=== PATIENT | male | born 1955 | race African-American/Black ===

== ENCOUNTER 2020-09-05 08:19 | Outpatient (REF) | payer MEDICARE, SELFPAY | END 2020-09-05 08:20 | disposition home or self-care (01) | LOC: HO.SH 08:19 | PROVIDERS: Visit Provider Internal Medicine | DX: Z46.1 Encounter for fitting and adjustment of hearing aid (principal); H90.3 Sensorineural hearing loss, bilateral | CPT/HCPCS: 92592 ==

== ENCOUNTER 2020-09-24 09:52 | Outpatient (REF) | payer MEDICARE, MEDICAID, SELFPAY | END 2020-09-24 09:53 | disposition home or self-care (01) | LOC: HO.HAP 09:52 | PROVIDERS: Visit Provider Internal Medicine | DX: Z46.1 Encounter for fitting and adjustment of hearing aid (principal) | CPT/HCPCS: V5014 ==

== ENCOUNTER 2023-03-23 08:12 | Outpatient (AMB) | payer OTHER, SELFPAY ==
--- NOTE | 2023-03-23 08:13 | MHC.OFFVIS ---
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 He has family h/o cerebral aneurysms.His father and his older brother have cerebral aneurysms . His brother had a ruptured aneurysm 10-15 years ago and the patient was also evaluated though he was asymptomatic. He was found to have 2 aneurysms and had 1 clipped.He wants to transfer care from [facility] due to the distance.His last visit was 5 years ago. He denies headaches, memory issues, double vision, dysarthria, dysphagia, weakness or numbness, loss of vision etc. 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 [facility] Medical History Benign neoplasm of neck Cerebral aneurysm CVA (cerebral vascular accident) Diabetes HTN (hypertension) Hyperlipidemia Seasonal allergies Surgical History (Updated 03/23/23 @ 08:32 by Ellen Oates MD) History of carotid endarterectomy History of carpal tunnel release History of surgery for cerebral aneurysm Family History Father Cerebral aneurysm Mother Diabetes Social History (Updated 03/23/23 @ 08:21 by JEANIE Rubin) Alcohol intake: never Patient Tobacco Use Status: Never used Tobacco Review of Systems Const Reports no additional complaints and Reports daytime sleepiness Eyes Reports no additional complaints ENT Reports change in voice Card Reports no additional complaints Resp Reports no additional complaints GI Reports no additional complaints Musc Reports arthralgias Neuro Reports no additional complaints Physical Exam Vital Signs: Last Vital Signs Pulse 86 03/23/23 08:19 BP 138/92 H 03/23/23 08:19 Pulse Ox 98 03/23/23 08:19 Oxygen Delivery Method Room Air 03/23/23 08:19 Const Orientation/consciousness: patient oriented x3 Neuro Other: 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 Due to his surgery in his neck and throat he had mild difficulty protruding his tongue. speech- dyarthria General: patient oriented x3, gait normal, tone normal, moves all extremities and no focal motor deficits Cranial nerves: Yes Facial sensation intact/muscles of mastication intact and Yes Normal facial strength present Cognition (Neuro): normal cognition Gait exam (Neuro): Normal gait present Motor exam (neuro): 5/5 motor strength present throughout and Normal motor muscle tone present throughout Deep tendon reflexes (DTR's): Right triceps reflex intensity grade: 2+, Left triceps reflex intensity grade: 2+, Rt Biceps (C5, C6): 2+, Left biceps reflex intensity grade: 2+, Right brachioradialis reflex intensity grade: 2+, Left brachioradialis reflex intensity grade: 2+, Right patellar reflex intensity grade: 3+ and Left patellar reflex intensity grade: 3+ Coordination: [id number] test normal Assessment & Plan Assessment & Plan (1) Cerebral aneurysm: Code(s): I67.1 - Cerebral aneurysm, nonruptured (2) History of carotid endarterectomy: Code(s): Z98.890 - Other specified postprocedural states Plan I will do a follow up MRI brain and MRA brain and neck to further assess his carotids and the aneurysm Orders: Orders MR angio head wo/w con Today I67.1 - Cerebral aneurysm, nonruptured, Z98.890 - Other specified postprocedural states MR angio neck wo/w con Today I67.1 - Cerebral aneurysm, nonruptured, Z98.890 - Other specified postprocedural states MR head/brain wo con Today I67.1 - Cerebral aneurysm, nonruptured, Z98.890 - Other specified postprocedural states Coding Level of Care Code New Pt Level 4 (23967) Diagnoses Cerebral aneurysm I67.1 History of carotid endarterectomy Z98.890
[2023-03-23 08:19] VITALS: BP 138/92; PULSE 86; O2SAT 98
== END 2023-03-23 08:46 | disposition home or self-care (01) ==
PROVIDERS: PCP Nurse Practitioner Adult Health; Visit Provider Psychiatry & Neurology Neurology
DX: I67.1 Cerebral aneurysm, nonruptured (principal); Z98.890 Other specified postprocedural states
CPT/HCPCS: 99204

== ENCOUNTER → 2023-03-23 08:12 | Outpatient (BNVA) | payer OTHER, SELFPAY | PROVIDERS: PCP Nurse Practitioner Adult Health; Visit Provider Psychiatry & Neurology Neurology | DX: I67.1 Cerebral aneurysm, nonruptured (principal); Z98.890 Other specified postprocedural states | CPT/HCPCS: 99202 ==

== ENCOUNTER 2023-06-07 10:40 | Outpatient (REF) | payer OTHER, SELFPAY ==
--- NOTE | ~2023-06-07 | MR_ITS ---
EXAMINATION: MRI OF THE BRAIN WITHOUT CONTRAST CLINICAL INFORMATION: Follow-up cerebral aneurysm. COMPARISON: Concurrent MRA of the head 06/07/2023. CT scan of the head [facility] 02/04/2013. MRI of the brain [facility] MRI 12/19/2014. TECHNIQUE: MRI of the brain was obtained using routine sequences without intravenous contrast. FINDINGS: No diffusion abnormalities are identified to suggest an acute or subacute infarct. No mass effect or midline shift is seen. The ventricles and sulci are commensurately prominent consistent with diffuse volume loss. There are patchy areas of increased T2 and FLAIR signal in the periventricular subcortical white matter, and in the annelise, most consistent with chronic microvascular ischemic disease. The study redemonstrates heterogenous signal from the clivus. There is irregular soft tissue fullness in the nasopharynx bilaterally, demonstrated on prior imaging, with erosive changes of the clivus which are better demonstrated on the prior CT scan. No extra-axial fluid collections are seen. The cerebellum appears normal. No pathologic magnetic susceptibility artifact is identified on the gradient refocused acquisition. The craniovertebral junction and midline structures are normal. The major intracranial flow-voids at the level of the [place] are preserved. There has been a left lens extraction. The dural venous sinus flow-voids are maintained; there is some susceptibility artifact from the coiling material in the left internal carotid artery. There is extensive fluid in the mastoid air cells bilaterally. There is mild mucoperiosteal thickening in the ethmoid sinuses. MR/MR head/brain wo con IMPRESSION: 1. There are no acute bleeds or territorial infarcts. No masses are demonstrated. 2. There are chronic microvascular ischemic changes and there is diffuse volume loss. 3. The study redemonstrates heterogenous signal from the clivus with erosive changes. There is soft tissue fullness in the nasopharynx bilaterally, demonstrated on prior imaging. This could be further evaluated with CT scan of the neck without and with contrast, and with ENT consultation. 4. There is extensive fluid in the mastoid air cells bilaterally.
--- NOTE | ~2023-06-07 | MR_ITS ---
EXAMINATION: MR ANGIOGRAPHY BRAIN WITHOUT AND WITH CONTRAST CLINICAL INFORMATION: Follow up for prior coiled cerebral aneurysm. No reported symptoms. COMPARISON: MRA dated 01/10/2015. Outside CT from 02/04/2023. Prior brain MRI from 12/19/2014. TECHNIQUE: Postcontrast and 3-D [id number] MR angiography of the [place] acquired. The patient received 7 mL of Gadavist intravenously for the study. Evaluation is limited due to the motion artifacts. FINDINGS: Distal to the left ophthalmic artery origin and proximal to the coiled dorsal wall aneurysm along the supraclinoid left internal carotid artery, there is what appears to represent a 3.5 mm aneurysm projecting superiorly off the dorsal wall as well, increased in size compared to prior imaging, having previously measured approximately 2 mm in size. The remainder of the left internal carotid artery appears normal. The right internal carotid artery is of normal caliber. The DANILO vasculature is normal. The MCA vascular complexes are normal in appearance bilaterally. The vertebrobasilar vasculature appears normal. The posterior cerebral arteries are normal in caliber. The venous sinuses opacify normally on post contrast imaging. There are significant bilateral mastoid and middle ear effusions. There is abnormal thickening of the nasopharyngeal soft tissues, better seen on a prior brain MRI study from 06/07/2023. On a CT study from 02/04/2023, there are permeative sclerotic changes in the clivus with small areas of bony erosion as well. There is loss of the normal fat planes between the nasopharyngeal soft tissue thickening and the prevertebral soft tissues posteriorly. Morphology of the torus tubarius on the left side is irregular. Similar findings were visible on a prior CT study from 12/2014 as well. MR/MR angio head wo/w con IMPRESSION: 1. Perceived 3.5 mm aneurysm arising from the dorsal wall of the supraclinoid left internal carotid artery between the origin of the ophthalmic artery and a previously coiled dorsal wall aneurysm. This aneurysm has increased in size when compared to an MRA from 01/10/2015. A dedicated conventional angiogram is recommended for better assessment, given motion artifacts. 2. Significant irregular soft tissue thickening in the nasopharynx with a sclerotic and permeative appearance of the clivus. Severe suspected chronic postobstructive bilateral middle ear and mastoid effusions as well. 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 The possibility of disease recurrence at this site cannot be discerned on the basis of this study. Recommend follow-up ENT consultation and evaluation to guide further management. Imaging findings reported to Dr. Oates at 8:40 AM on 06/09/2023.
[2023-06-07] MEDS: gadobutroL 7.5 ML VIAL IVPUSH (11:55)
== END 2023-06-07 10:41 | disposition home or self-care (01) ==
LOC: HO.MRI 10:40
PROVIDERS: Visit Provider Psychiatry & Neurology Neurology
DX: I67.1 Cerebral aneurysm, nonruptured (principal); Z98.890 Other specified postprocedural states
CPT/HCPCS: 70546; 70551; A9585

== ENCOUNTER 2023-06-29 10:47 | Outpatient (AMB) | payer OTHER, SELFPAY ==
--- NOTE | 2023-06-29 10:48 | MHC.OFFVIS ---
Intake Vital Signs 06/29/23 10:49 Height 5 ft 9 in Weight 139 lb 8 oz BMI 20.6 BP 112/70 Blood Pressure Location Rt brachial Position Sitting Respiration 17 Pulse 96 Pulse Source Pulse Oximeter Pulse Oximetry (%) 98 Oxygen Delivery Method Room Air Intake Visit Reasons: 3m f/up Cerebral Aneurysm - Confirmed Intake Note: Pt presents tot he office for a 3 month follow up for cerebral aneurysm. He reports he feels the same since his last visit. Audio Specialist Required: No Allergies No Known Allergies Allergy (Verified 06/29/23 10:48) HPI HPI Comments History of Present Illness Details 68y/o male comes for f/u .MRA showed a 3.5 mm aneurysm in dorsal supraclinoid left ICA mildly enlarged since his imaging in 2014 . Previous history-He has family h/o cerebral aneurysms.His father and his older brother have cerebral aneurysms . His brother had a ruptured aneurysm 10-15 years ago and the patient was also evaluated though he was asymptomatic. He was found to have 2 aneurysms and had 1 clipped.He wants to transfer care from [facility] due to the distance.His last visit was 5 years ago. He denies headaches, memory issues, double vision, dysarthria, dysphagia, weakness or numbness, loss of vision etc. 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 [facility] Medical History Nasopharyngeal mass CVA (cerebral vascular accident) Benign neoplasm of neck Cerebral aneurysm HTN (hypertension) Seasonal allergies Hyperlipidemia Diabetes Surgical History History of carotid endarterectomy History of surgery for cerebral aneurysm History of carpal tunnel release Family History Father Cerebral aneurysm Mother Diabetes Social History Alcohol intake: never Patient Tobacco Use Status: Never used Tobacco Physical Exam Vital Signs: Last Vital Signs Pulse 96 06/29/23 10:49 Resp 17 06/29/23 10:49 BP 112/70 06/29/23 10:49 Pulse Ox 98 06/29/23 10:49 Oxygen Delivery Method Room Air 06/29/23 10:49 BMI result Body Mass Index 20.6 Const Orientation/consciousness: patient oriented x3 Neuro Other: 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 Due to his surgery in his neck and throat he had mild difficulty protruding his tongue. speech- dyarthria General: patient oriented x3, gait normal, tone normal, moves all extremities and no focal motor deficits Cranial nerves: Yes Facial sensation intact/muscles of mastication intact and Yes Normal facial strength present Cognition (Neuro): normal cognition Gait exam (Neuro): Normal gait present Motor exam (neuro): 5/5 motor strength present throughout and Normal motor muscle tone present throughout Coordination: [id number] test normal Results Reviewed Results Reviewed: .MRA head- Perceived 3.5 mm aneurysm arising from the dorsal wall of the supraclinoid left internal carotid artery between the origin of the ophthalmic artery and a previously coiled dorsal wall aneurysm. This aneurysm has increased in size when compared to an MRA from 01/10/2015. A dedicated conventional angiogram is recommended for better assessment, given motion artifacts. 2. Significant irregular soft tissue thickening in the nasopharynx with a sclerotic and permeative appearance of the clivus. Severe suspected chronic postobstructive bilateral middle ear and mastoid effusions as well. 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 The possibility of disease recurrence at this site cannot be discerned on the basis of this study. Recommend follow-up ENT consultation and evaluation to guide further management. Assessment & Plan Assessment & Plan (1) Cerebral aneurysm: Code(s): I67.1 - Cerebral aneurysm, nonruptured (2) History of carotid endarterectomy: Code(s): Z98.890 - Other specified postprocedural states Plan MRA head showed a mild increase in aneurysm . he was referred to neurosurgery and i discussed the results He did not have MRA neck done yet Suggested to call [facility] ENT for findings in the MRI - to evaluate, but no change since 2014 Coding Level of Care Code Est Pt Level 4 (52001) Diagnoses Cerebral aneurysm I67.1 History of carotid endarterectomy Z98.890
[2023-06-29 10:49] VITALS: BP 112/70; PULSE 96; RESP 17; O2SAT 98; BMI 20.6
== END 2023-06-29 11:19 | disposition home or self-care (01) ==
PROVIDERS: PCP Nurse Practitioner Adult Health; Visit Provider Psychiatry & Neurology Neurology
DX: I67.1 Cerebral aneurysm, nonruptured (principal); Z98.890 Other specified postprocedural states
CPT/HCPCS: 99214

== ENCOUNTER → 2023-06-29 10:47 | Outpatient (BNVA) | payer OTHER, SELFPAY | PROVIDERS: PCP Nurse Practitioner Adult Health; Visit Provider Psychiatry & Neurology Neurology | DX: I67.1 Cerebral aneurysm, nonruptured (principal); Z98.890 Other specified postprocedural states | CPT/HCPCS: 99212 ==

== ENCOUNTER 2023-11-17 09:27 | Outpatient (AMB) | payer OTHER, SELFPAY ==
--- NOTE | 2023-11-17 09:33 | MHC.OFFVIS ---
Intake Vital Signs 11/17/23 09:38 Height 5 ft 9 in Weight 143 lb 2 oz BMI 21.1 BP 124/72 Blood Pressure Location Lt brachial Position Sitting Pulse 85 Pulse Source Pulse Oximeter Pulse Oximetry (%) 99 Oxygen Delivery Method Room Air Intake Visit Reasons: 3 mnts f/u for Cerebral Aneurysm per MD Intake Note: Patient presents for 3 months F/U. Allergies No Known Allergies Allergy (Verified 11/17/23 09:38) HPI HPI Comments History of Present Illness Details 68 y/o male comes for f/u of cerebral aneurysm. Previous history-He has family h/o cerebral aneurysms. His father and his older brother have cerebral aneurysms. His brother had a ruptured aneurysm 10-15 years ago and the patient was also evaluated though he was asymptomatic. He was found to have 2 aneurysms and had 1 clipped. MRA showed a 3.5 mm aneurysm in dorsal supraclinoid left ICA mildly enlarged since his imaging in 2014 . Pt had a MRA of neck done. The MRA of neck result was Left ICA stenosis 40% and there is severe stenosis of distal right common carotid artery. Stenosis of the proximal right ICA is estimated at 60%. There is a dominant thyroid nodule measuring 23 mm involving the the left lobe and isthmus of the thyroid gland. He denies headaches, memory issues, double vision, dysarthria, dysphagia, weakness or numbness, loss of vision etc. 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 He also reports a mini stroke during left carotid endarterectomy . [facility] Medical History Nasopharyngeal mass CVA (cerebral vascular accident) Benign neoplasm of neck Cerebral aneurysm HTN (hypertension) Seasonal allergies Hyperlipidemia Diabetes Surgical History History of carotid endarterectomy History of surgery for cerebral aneurysm History of carpal tunnel release Family History Father Cerebral aneurysm Mother Diabetes Social History Alcohol intake: never Patient Tobacco Use Status: Never used Tobacco Review of Systems Const All systems reviewed & are unremarkable except as noted in HPI and below Physical Exam Vital Signs: Last Vital Signs Pulse 85 11/17/23 09:38 BP 124/72 11/17/23 09:38 Pulse Ox 99 11/17/23 09:38 Oxygen Delivery Method Room Air 11/17/23 09:38 BMI result Body Mass Index 21.1 Const Orientation/consciousness: patient oriented x3 Neuro Other: 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 Due to his surgery in his neck and throat he had mild difficulty protruding his tongue. speech- dyarthria General: patient oriented x3, gait normal, tone normal, moves all extremities and no focal motor deficits Cranial nerves: Yes Facial sensation intact/muscles of mastication intact and Yes Normal facial strength present Cognition (Neuro): normal cognition Gait exam (Neuro): Normal gait present Motor exam (neuro): 5/5 motor strength present throughout and Normal motor muscle tone present throughout Coordination: [id number] test normal Assessment & Plan Assessment & Plan (1) Cerebral aneurysm: Code(s): I67.1 - Cerebral aneurysm, nonruptured (2) History of carotid endarterectomy: Code(s): Z98.890 - Other specified postprocedural states (3) Thyroid nodule: Code(s): E04.1 - Nontoxic single thyroid nodule Plan Refer patient to vascular for evaluation of right ICA 60%. Will check labs, lipid panel, ESR and CRP. Will send the MRA result to his PCP for thyroid nodule evaluation. Orders: Orders Lipid Panel Today E78.5 - Hyperlipidemia, unspecified, I65.29 - Occlusion and stenosis of unspecified carotid artery, I67.1 - Cerebral aneurysm, nonruptured Erythrocyte Sedimentation Rate Today E78.5 - Hyperlipidemia, unspecified, I65.29 - Occlusion and stenosis of unspecified carotid artery, I67.1 - Cerebral aneurysm, nonruptured C Reactive Protein Today E78.5 - Hyperlipidemia, unspecified, I65.29 - Occlusion and stenosis of unspecified carotid artery, I67.1 - Cerebral aneurysm, nonruptured Referrals Vascular Surgery Referral I65.29 - Occlusion and stenosis of unspecified carotid artery Coding Level of Care Code Est Pt Level 4 (09102) Diagnoses Cerebral aneurysm I67.1 History of carotid endarterectomy Z98.890 Thyroid nodule E04.1
[2023-11-17 09:38] VITALS: BP 124/72; PULSE 85; O2SAT 99; BMI 21.1
== END 2023-11-17 10:17 | disposition home or self-care (01) ==
LOC: HO.HSMS 09:27
PROVIDERS: PCP Nurse Practitioner Adult Health; Visit Provider Nurse Practitioner Family
DX: I67.1 Cerebral aneurysm, nonruptured (principal); Z98.890 Other specified postprocedural states; E04.1 Nontoxic single thyroid nodule
CPT/HCPCS: 99214

== ENCOUNTER 2023-11-17 10:30 | Outpatient (REF) | payer OTHER, SELFPAY ==
[2023-11-17 17:09] LABS: C Reactive Protein 1.28 mg/dL (< or = 0.50); Cholesterol 159 mg/dL (<200); HDL Cholesterol 39 mg/dL (>40); LDL Cholesterol Calculated 109 mg/dL (<100); Triglycerides 59 mg/dL (<150)
[2023-11-17 17:39] LABS: Erythrocyte Sedimentation Rate 67 MM/HR (0-15)
== END 2023-11-17 10:31 | disposition home or self-care (01) ==
LOC: HO.HKASLDS 10:30
PROVIDERS: Visit Provider Nurse Practitioner Family
DX: I67.1 Cerebral aneurysm, nonruptured (principal); I65.29 Occlusion and stenosis of unspecified carotid artery; E78.5 Hyperlipidemia, unspecified; E04.1 Nontoxic single thyroid nodule; Z98.890 Other specified postprocedural states
CPT/HCPCS: 36415; 80061; 85652; 86140; 99212

== ENCOUNTER 2023-12-26 09:43 | Outpatient (REF) | payer OTHER, SELFPAY ==
[2023-12-27 17:19] LABS: CRP High Sensitivity 8.4 mg/L
== END 2023-12-26 09:44 | disposition home or self-care (01) ==
LOC: HO.LAB 09:43
PROVIDERS: Visit Provider Nurse Practitioner Family
DX: E11.9 Type 2 diabetes mellitus without complications (principal); E78.5 Hyperlipidemia, unspecified; I10 Essential (primary) hypertension
CPT/HCPCS: 36415; 86141

== ENCOUNTER 2024-02-07 10:25 | Outpatient (AMB) | payer OTHER, SELFPAY ==
[2024-02-07 10:26] VITALS: BP 110/60; BMI 21.1
--- NOTE | 2024-02-07 10:26 | MHC.OFFVIS ---
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 Pt states he has blurred vision, no loss of balance. Accompanied by: Self / Same As Patient Allergies No Known Allergies Allergy (Verified 02/07/24 10:32) HPI HPI [place] MATE/Neuro Ref for carotid stenosis s/p MRI: Details: Very pleasant 68-year-old gentleman presents for evaluation regarding carotid stenosis. Was actually seen by Neurology for cerebral aneurysm. At the current time he denies any lateralizing signs or symptoms, speech disturbances, and or visual deficits. Reports that he had carotid surgery nearly 7 years ago performed up in [place]. He has undergone MRA and is now for evaluation. [facility] Medical History Nasopharyngeal mass CVA (cerebral vascular accident) Benign neoplasm of neck Cerebral aneurysm HTN (hypertension) Seasonal allergies Hyperlipidemia Diabetes Surgical History History of carotid endarterectomy History of surgery for cerebral aneurysm History of carpal tunnel release Family History Father Cerebral aneurysm Mother Diabetes Social History Alcohol intake: never Patient Tobacco Use Status: Never used Tobacco Review of Systems Const All systems reviewed & are unremarkable except as noted in HPI and below Reports no additional complaints ENT Reports Normal hearing present Card Denies chest pain, Denies chest pain at rest, Denies chest pain with activity and Denies pedal edema Resp Denies cough GI Denies abdominal pain Musc Denies abnormal gait, Denies muscle cramps and Denies radiating pain into limb Skin/Breast Denies skin ulcer and Denies wounds Neuro Reports Normal hearing present and Denies abnormal gait Psych Reports no additional complaints Physical Exam Vital Signs: Last Vital Signs BP 0/0 L 02/07/24 10:34 BMI result Body Mass Index 21.1 Const General: cooperative, healthy appearing and comfortable Orientation/consciousness: oriented to person, oriented to place and oriented to time HEENT Head: Yes normal to inspection Neck Neck: Yes normal visual inspection Carotids: no bruits Chest Chest palpation & inspection: normal inspection of the chest Resp Effort & Inspection: normal respiratory effort and able to speak in complete sentences Auscultation: clear to auscultation bilaterally, no crackles, no rales, no rhonchi and no wheezes Cardio Rate: regular rate Rhythm: regular rhythm Heart sounds: S1 normal heart sound present and S2 normal heart sound present Bruits: no carotid bruits Peripheral pulses: Peripheral pulses 2+ throughout GI Inspection: Yes normal to inspection Skin Wounds: no wounds Hair: normal Neuro General: oriented to person, oriented to place and oriented to time Cranial nerves: Yes CN's II-XII intact bilaterally and Yes Normal hearing present Cognition (Neuro): normal cognition Motor exam (neuro): 5/5 motor strength present throughout Extrem Other: venous exam: No significant superficial varicosities or spider telangiectasias, minimal edema General: No clubbing, No cyanosis and No edema Psych Appearance: grossly normal Mental Status: mental status grossly normal Speech and movement: Normal speech and movement present Results Reviewed Results Reviewed: MRA dated 07/05/2023 demonstrates right-sided stenosis 60% left side 40%. Written report reviewed only Assessment & Plan Assessment & Plan (1) Bilateral carotid artery stenosis: Comment: Left carotid endarterectomy - 2017 in [place] Code(s): I65.23 - Occlusion and stenosis of bilateral carotid arteries Category: Medical Plan: At the current time patient has asymptomatic carotid disease. It does appear to be in the lower range with a maximal of 60%. We have reviewed signs and symptoms of a stroke. We also discussed risk factor modification inclusive a healthy diet low in cholesterol. The patient will follow up with us with a baseline ultrasound of his carotids. Should there be any changes or signs or symptoms of a stroke we will be happy to see them back sooner. Thank you for allowing us to participate in this patient's care. If there are any questions or concerns please do not hesitate to contact us. Orders: Orders US carotid duplex BI 1 Week I65.23 - Occlusion and stenosis of bilateral carotid arteries Coding Level of Care Code New Pt Level 4 (99898) Diagnoses Bilateral carotid artery stenosis I65.23
[2024-02-07 10:34] VITALS: BP 0/0
== END 2024-02-07 10:58 | disposition home or self-care (01) ==
PROVIDERS: PCP Hospitalist; Visit Provider Surgery Vascular Surgery
DX: I65.23 Occlusion and stenosis of bilateral carotid arteries (principal)
CPT/HCPCS: 99203

== ENCOUNTER → 2024-02-07 10:25 | Outpatient (BNVA) | payer OTHER, SELFPAY | PROVIDERS: PCP Hospitalist; Visit Provider Surgery Vascular Surgery | DX: I65.23 Occlusion and stenosis of bilateral carotid arteries (principal); Z98.890 Other specified postprocedural states | CPT/HCPCS: 99202 ==

== ENCOUNTER 2024-05-14 09:07 | Outpatient (AMB) | payer OTHER, SELFPAY ==
[2024-05-14 09:12] VITALS: BP 126/70; PULSE 103; RESP 16; O2SAT 98; BMI 19.6
--- NOTE | 2024-05-14 09:12 | MHC.OFFVIS ---
Vital Signs 05/14/24 09:12 Height 5 ft 9 in Weight 132 lb 8 oz BMI 19.6 BP 126/70 Blood Pressure Location Rt brachial Position Sitting Respiration 16 Pulse 103 H Pulse Source Pulse Oximeter Pulse Oximetry (%) 98 Oxygen Delivery Method Room Air Intake Visit Reasons: Follow up Cerebral Aneurysm Intake Note: Pt presents to the office for a 6 month follow up for cerebral aneurysm. 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 History-He has family h/o cerebral aneurysms. His father and his older brother have cerebral aneurysms. His brother had a ruptured aneurysm 10-15 years ago and the patient was also evaluated though he was asymptomatic. He was found to have 2 aneurysms and had 1 clipped. MRA showed a 3.5 mm aneurysm in dorsal supraclinoid left ICA mildly enlarged since his imaging in 2014 . Pt had a MRA of neck done. The MRA of neck result was Left ICA stenosis 40% and there is severe stenosis of distal right common carotid artery. Stenosis of the proximal right ICA is estimated at 60%. There is a dominant thyroid nodule measuring 23 mm involving the the left lobe and isthmus of the thyroid gland. He denies headaches, memory issues, double vision, dysarthria, dysphagia, weakness or numbness, loss of vision etc. 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 He also reports a mini stroke during left carotid endarterectomy . [facility] Medical History Nasopharyngeal mass CVA (cerebral vascular accident) Benign neoplasm of neck Cerebral aneurysm HTN (hypertension) Seasonal allergies Hyperlipidemia Diabetes Surgical History History of carotid endarterectomy History of surgery for cerebral aneurysm History of carpal tunnel release Family History Father Cerebral aneurysm Mother Diabetes Social History Alcohol intake: never Patient Tobacco Use Status: Never used Tobacco Physical Exam Vital Signs: Last Vital Signs Pulse 103 H 05/14/24 09:12 Resp 16 05/14/24 09:12 BP 126/70 05/14/24 09:12 Pulse Ox 98 05/14/24 09:12 Oxygen Delivery Method Room Air 05/14/24 09:12 BMI result Body Mass Index 19.6 Const Orientation/consciousness: patient oriented x3 Neuro Other: 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 Due to his surgery in his neck and throat he had mild difficulty protruding his tongue. speech- dyarthria General: patient oriented x3, gait normal, tone normal, moves all extremities and no focal motor deficits Cranial nerves: Yes Facial sensation intact/muscles of mastication intact and Yes Normal facial strength present Cognition (Neuro): normal cognition Gait exam (Neuro): Normal gait present Motor exam (neuro): 5/5 motor strength present throughout and Normal motor muscle tone present throughout Coordination: [id number] test normal Assessment & Plan Assessment & Plan (1) Cerebral aneurysm: Code(s): I67.1 - Cerebral aneurysm, nonruptured Category: Medical (2) History of carotid endarterectomy: Code(s): Z98.890 - Other specified postprocedural states Category: Surgical (3) Thyroid nodule: Code(s): E04.1 - Nontoxic single thyroid nodule Category: Medical Plan F/u with Dr. Burleson - vascular surgeon Repeat MRA head to monitor aneurysm at [facility] Refer to neurosurgery at [facility] H/o nasaopharyngeal cancer - needs ENT reevaluation- PCP will refer Orders: Orders US carotid duplex BI Today I65.23 - Occlusion and stenosis of bilateral carotid arteries MR angio head wo con Today I67.1 - Cerebral aneurysm, nonruptured Referrals Neurosurgery Referral I67.1 - Cerebral aneurysm, nonruptured Coding Level of Care Code Est Pt Level 4 (30526) Complex EM visit Add On G2211 Diagnoses Cerebral aneurysm I67.1 History of carotid endarterectomy Z98.890 Thyroid nodule E04.1
== END 2024-05-14 09:36 | disposition home or self-care (01) ==
PROVIDERS: PCP Hospitalist; Visit Provider Psychiatry & Neurology Neurology
DX: I67.1 Cerebral aneurysm, nonruptured (principal); Z98.890 Other specified postprocedural states; E04.1 Nontoxic single thyroid nodule
CPT/HCPCS: 99214; G2211

== ENCOUNTER → 2024-05-14 09:07 | Outpatient (BNVA) | payer OTHER, SELFPAY | PROVIDERS: PCP Hospitalist; Visit Provider Psychiatry & Neurology Neurology | DX: I67.1 Cerebral aneurysm, nonruptured (principal); E04.1 Nontoxic single thyroid nodule; H49.22 Sixth [abducent] nerve palsy, left eye; Z98.890 Other specified postprocedural states | CPT/HCPCS: 99212 ==

== ENCOUNTER 2024-05-24 09:15 | Outpatient (REF) | payer OTHER, SELFPAY ==
--- NOTE | ~2024-05-24 | US_ITS ---
EXAMINATION: US EXTRACRANIAL CAROTID DUPLEX, BILATERAL CLINICAL INFORMATION: Carotid stenosis COMPARISON: None available. TECHNIQUE: Real-time ultrasound and Doppler techniques (integrating B-mode 2-D vascular images, Doppler spectral analysis and color-flow Doppler imaging) were utilized to interrogate the extracranial carotid arteries, the vertebral arteries and proximal subclavian arteries bilaterally. The degree of stenosis is determined by criteria similar to NASCET. FINDINGS: Right Side: 1. There is moderate, irregular calcified atherosclerotic plaque seen in the bifurcation/proximal ICA region. 2. The common carotid artery PSV proximally is 105 cm/s and distally 85.1 cm/s. 3. The proximal internal carotid artery velocities are 246 cm/s systolic and 84.9 cm/s diastolic. 4. The proximal external carotid artery PSV is 185 cm/s. 5. The vertebral artery shows antegrade flow. 6. The subclavian artery waveforms are normal. Left Side: 1. There is moderate atherosclerotic plaque seen in the bifurcation/proximal ICA region. 2. The common carotid artery PSV proximally is 43.2 cm/s and distally 69.3 cm/s. Parvus tardus waveforms are present suggesting more proximal stenosis 3. The proximal internal carotid artery velocities are 373 cm/s systolic and 162 cm/s diastolic. 4. The proximal external carotid artery is occluded. 5. The vertebral artery shows antegrade flow. 6. The subclavian artery waveforms are normal. US/US carotid duplex BI IMPRESSION: 1. RIGHT: Moderate, hemodynamically significant stenosis of the proximal right internal carotid artery corresponding to a 50-79% stenosis by velocity criteria. 2. LEFT: Severe, hemodynamically significant stenosis of the proximal left internal carotid artery corresponding to an 80-99% stenosis by velocity criteria. Note is also made of parvus tardus waveforms in the common carotid artery suggesting a more proximal stenosis possibly at the common carotid artery origin. 3. Occlusion of the left external carotid artery Electronically signed by: Bhavin Dillon MD 05/29/2024 08:57 AM EDT RP
[2024-05-24 11:58] LABS: Estimated Average Glucose 137 mg/dL; Hemoglobin A1C 126.9415 umol/L; Hemoglobin A1c % 6.4 % (<6.0); Total Hemoglobin (HGBA1C) 2733.3095 umol/L
[2024-05-24 12:32] LABS: Alanine Aminotransferase 6 U/L (0-40); Albumin Level 4.1 g/dL (3.5-5.0); Alkaline Phosphatase 72 U/L (39-117); Anion Gap 11 (12-20); Aspartate Amino Transferase 16 U/L (5-37); Bilirubin Total 0.3 mg/dL (0.0-1.0); Blood Urea Nitrogen 9 mg/dL (9-16); Carbon Dioxide 33 mmol/L (22-29); Chloride 101 mmol/L (96-108); Cholesterol 165 mg/dL (<200); Estimated Glomerular Filt Rate > 60; Glucose Random 89 mg/dL (60-115); HDL Cholesterol 38 mg/dL (>40); LDL Cholesterol Calculated 115 mg/dL (<100); Potassium 4.7 mmol/L (3.3-5.1); Prostate Specific Antigen 0.52 ng/mL (<0.05-4.0); Sodium 140 mmol/L (135-145); Total Protein 8.2 g/dL (6.5-8.0); Triglycerides 60 mg/dL (<150)
[2024-05-24 17:04] LABS: Creatinine Urine 120.74 mg/dL; Microalbum/Creatinine Ratio Ur 7.4 ug/mg cr (<30)
== END 2024-05-24 09:16 | disposition home or self-care (01) ==
LOC: HO.US 09:15
PROVIDERS: Absent Provider Hospitalist; PCP Hospitalist; Visit Provider Psychiatry & Neurology Neurology
DX: Z00.00 Encounter for general adult medical examination without abnormal findings (principal); I65.23 Occlusion and stenosis of bilateral carotid arteries; I10 Essential (primary) hypertension; E11.8 Type 2 diabetes mellitus with unspecified complications; Z12.5 Encounter for screening for malignant neoplasm of prostate
CPT/HCPCS: 36415; 80053; 80061; 82043; 82570; 83036; 84153; 93880

== ENCOUNTER 2024-06-12 09:24 | Outpatient (AMB) | payer OTHER, SELFPAY ==
--- NOTE | 2024-06-12 09:38 | MHC.OFFVIS ---
Intake Visit Reasons: follow up s/p Carotid US 05/24/24 Intake Note: Patient presents for follow up carotid US 05/24/24. No complaints. Accompanied by: Self / Same As Patient Allergies No Known Allergies Allergy (Verified 06/12/24 09:39) HPI HPI follow up s/p Carotid US 05/24/24: Details: Very pleasant 69-year-old gentleman presents for evaluation regarding carotid disease. He has been seen by Neurology in the past for cerebral aneurysms. He had undergone left carotid endarterectomy back in 2017 at [facility] in [facility]. Upon discussion with him he has been asymptomatic in terms of his carotids. He denies any lateralizing signs or symptoms visual deficits or speech disturbances. Now presents for routine surveillance with noninvasive carotid testing. [facility] Medical History Nasopharyngeal mass CVA (cerebral vascular accident) Benign neoplasm of neck Cerebral aneurysm HTN (hypertension) Seasonal allergies Hyperlipidemia Diabetes Surgical History History of carotid endarterectomy History of surgery for cerebral aneurysm History of carpal tunnel release Family History Father Cerebral aneurysm Mother Diabetes Social History Alcohol intake: never Patient Tobacco Use Status: Never used Tobacco Review of Systems Const All systems reviewed & are unremarkable except as noted in HPI and below Reports no additional complaints ENT Reports Normal hearing present Card Denies chest pain, Denies chest pain at rest, Denies chest pain with activity and Denies pedal edema Resp Denies cough GI Denies abdominal pain Musc Denies abnormal gait, Denies muscle cramps and Denies radiating pain into limb Skin/Breast Denies skin ulcer and Denies wounds Neuro Reports Normal hearing present and Denies abnormal gait Psych Reports no additional complaints Physical Exam Const General: cooperative, healthy appearing and comfortable Orientation/consciousness: oriented to person, oriented to place and oriented to time HEENT Head: Yes normal to inspection Neck Neck: Yes normal visual inspection Carotids: no bruits Chest Chest palpation & inspection: normal inspection of the chest Resp Effort & Inspection: normal respiratory effort and able to speak in complete sentences Auscultation: clear to auscultation bilaterally, no crackles, no rales, no rhonchi and no wheezes Cardio Rate: regular rate Rhythm: regular rhythm Heart sounds: S1 normal heart sound present and S2 normal heart sound present Bruits: no carotid bruits Peripheral pulses: Peripheral pulses 2+ throughout GI Inspection: Yes normal to inspection Skin Wounds: no wounds Hair: normal Neuro General: oriented to person, oriented to place and oriented to time Cranial nerves: Yes CN's II-XII intact bilaterally and Yes Normal hearing present Cognition (Neuro): normal cognition Motor exam (neuro): 5/5 motor strength present throughout Extrem Other: venous exam: No significant superficial varicosities or spider telangiectasias, minimal edema General: No clubbing, No cyanosis and No edema Psych Appearance: grossly normal Mental Status: mental status grossly normal Speech and movement: Normal speech and movement present Results Reviewed Results Reviewed: Noninvasive carotid testing dated 05/24/2024 demonstrates right side 50-79 left side 80-99% stenosis with concern of more proximal carotid stenosis at the origin. Written report and images were reviewed. Assessment & Plan Assessment & Plan (1) Bilateral carotid artery stenosis: Comment: 2017 - Left carotid endarterectomy at [facility] in [facility] Code(s): I65.23 - Occlusion and stenosis of bilateral carotid arteries Category: Medical Plan: In short there appears to be progression of his left carotid stenosis. I have taken the liberty of ordering a CT angiogram to better elucidate the true degree of stenosis in the location of the disease. The concern here is that he has had prior carotid endarterectomy. We will try to expedite CT angiogram. He has had labs done most recently which appear to be within normal limits. We also did discuss routine risk factor modification. Thank you for allowing us to assist in his care. If there are any questions or concerns please do not hesitate to contact us. Orders: Orders CT angio neck 1 Week I65.23 - Occlusion and stenosis of bilateral carotid arteries Coding Level of Care Code Est Pt Level 4 (48554) Diagnoses Bilateral carotid artery stenosis I65.23
== END 2024-06-12 10:07 | disposition home or self-care (01) ==
LOC: HO.HVS 09:24
PROVIDERS: PCP Hospitalist; Visit Provider Surgery Vascular Surgery
DX: I65.23 Occlusion and stenosis of bilateral carotid arteries (principal)
CPT/HCPCS: 99214

== ENCOUNTER → 2024-06-12 09:24 | Outpatient (BNVA) | payer OTHER, SELFPAY | PROVIDERS: PCP Hospitalist; Visit Provider Surgery Vascular Surgery | DX: I65.23 Occlusion and stenosis of bilateral carotid arteries (principal) | CPT/HCPCS: 99212 ==

== ENCOUNTER 2024-06-28 14:19 | Outpatient (REF) | payer OTHER, SELFPAY ==
[2024-06-28] MEDS: iohexoL 350 MG/ML 100 ML INFUS..BTL 65 ML IV (16:16)
[2024-06-29 11:51] LABS: Creatinine POC 0.9 mg/dL (0.5-1.4); GFR POC > 60
== END 2024-06-28 14:20 | disposition home or self-care (01) ==
LOC: HO.CT 14:19
PROVIDERS: PCP Hospitalist; Visit Provider Surgery Vascular Surgery
DX: I65.23 Occlusion and stenosis of bilateral carotid arteries (principal)
CPT/HCPCS: 70498; 82565; Q9967

== ENCOUNTER 2024-09-06 09:55 | Outpatient (AMB) | payer MEDICARE, SELFPAY ==
[2024-09-06 09:59] VITALS: BMI 19.5
--- NOTE | 2024-09-06 09:59 | MHC.OFFVIS ---
Vital Signs 09/06/24 09:59 Height 5 ft 9 in Weight 132 lb BMI 19.5 Intake Visit Reasons: follow up CTA Neck 06/28/24 Intake Note: follow up CTA Neck 06/28/24 w/ Hx of Left CEA 2017 @ [facility] in [place], [place]. No complaints Accompanied by: Self / Same As Patient Allergies No Known Allergies Allergy (Verified 09/06/24 10:02) HPI HPI follow up CTA Neck 06/28/24: Details: Very pleasant 69-year-old gentleman presents for follow-up evaluation regarding carotid disease. He had been seen by neurology in the past for cerebral aneurysms. Of note he had undergone left carotid endarterectomy in 2017 at [facility]. On surveillance ultrasound there was concern of his left carotid he now follows up with CT angiogram. He is asymptomatic from his carotids. He denies any lateralizing signs or symptoms visual deficits or speech disturbances. He reports that he quit smoking nearly 20 years ago. He is a diabetic. Can run a half a mi with no significant difficulty. [facility] Medical History Nasopharyngeal mass CVA (cerebral vascular accident) Benign neoplasm of neck Cerebral aneurysm HTN (hypertension) Seasonal allergies Hyperlipidemia Diabetes Surgical History History of carotid endarterectomy History of surgery for cerebral aneurysm History of carpal tunnel release Family History Father Cerebral aneurysm Mother Diabetes Social History Alcohol intake: never Patient Tobacco Use Status: Never used Tobacco Review of Systems Const All systems reviewed & are unremarkable except as noted in HPI and below Reports no additional complaints ENT Reports Normal hearing present Card Denies chest pain, Denies chest pain at rest, Denies chest pain with activity and Denies pedal edema Resp Denies cough GI Denies abdominal pain Musc Denies abnormal gait, Denies muscle cramps and Denies radiating pain into limb Skin/Breast Denies skin ulcer and Denies wounds Neuro Reports Normal hearing present and Denies abnormal gait Psych Reports no additional complaints Physical Exam Vital Signs: BMI result Body Mass Index 19.5 Const General: cooperative, healthy appearing and comfortable Orientation/consciousness: oriented to person, oriented to place and oriented to time HEENT Head: Yes normal to inspection Neck Neck: Yes normal visual inspection Carotids: no bruits Chest Chest palpation & inspection: normal inspection of the chest Resp Effort & Inspection: normal respiratory effort and able to speak in complete sentences Auscultation: clear to auscultation bilaterally, no crackles, no rales, no rhonchi and no wheezes Cardio Rate: regular rate Rhythm: regular rhythm Heart sounds: S1 normal heart sound present and S2 normal heart sound present Bruits: no carotid bruits Peripheral pulses: Peripheral pulses 2+ throughout GI Inspection: Yes normal to inspection Skin Wounds: no wounds Hair: normal Neuro General: oriented to person, oriented to place and oriented to time Cranial nerves: Yes CN's II-XII intact bilaterally and Yes Normal hearing present Cognition (Neuro): normal cognition Motor exam (neuro): 5/5 motor strength present throughout Extrem Other: venous exam: No significant superficial varicosities or spider telangiectasias, minimal edema General: No clubbing, No cyanosis and No edema Psych Appearance: grossly normal Mental Status: mental status grossly normal Speech and movement: Normal speech and movement present Results Reviewed Results Reviewed: CT angiogram dated 06/28/2024 demonstrates focal severe stenosis of distal right common carotid. A proximally 50% stenosis of the internal carotid. By my personal review of imaging it appears near occlusive on the right side. Left side demonstrates 50% stenosis. I do not believe this is a true stenosis this appears to be more of a caliber change with no atherosclerotic disease. This may be where the prior patch and did. Written report and images were reviewed. Assessment & Plan Assessment & Plan (1) Bilateral carotid artery stenosis: Comment: 2017 - Left carotid endarterectomy at [facility] in [facility] Code(s): I65.23 - Occlusion and stenosis of bilateral carotid arteries Category: Medical Plan: In short patient has high-grade right carotid stenosis. Patient will require right carotid endarterectomy. Risks benefits complications including bleeding infection stroke and were discussed in detail with the patient. He has agreed and will like to move forward. He will require cardiac risk stratification prior to surgery. Thank you for allowing us to assist in his care. If there are any questions or concerns please do not hesitate to contact us Coding Level of Care Code Est Pt Level 4 (28111) Complex EM visit Add On G2211 Diagnoses Bilateral carotid artery stenosis I65.23
== END 2024-09-06 10:48 | disposition home or self-care (01) ==
PROVIDERS: PCP Hospitalist; Visit Provider Surgery Vascular Surgery
DX: I65.23 Occlusion and stenosis of bilateral carotid arteries (principal)
CPT/HCPCS: 99214; G2211

== ENCOUNTER 2024-09-06 09:55 | Outpatient (REF) | payer MEDICARE, SELFPAY ==
[2024-09-06 12:11] LABS: Estimated Average Glucose 137 mg/dL; Hemoglobin A1C 123.7496 umol/L; Hemoglobin A1c % 6.4 % (<6.0)
[2024-09-06 12:31] LABS: Alanine Aminotransferase < 6 U/L (0-40); Alkaline Phosphatase 69 U/L (39-117); Anion Gap 11 (12-20); Aspartate Amino Transferase 23 U/L (5-37); Bilirubin Total 0.3 mg/dL (0.0-1.0); Blood Urea Nitrogen 10 mg/dL (9-16); Calcium 9.8 mg/dL (8.4-10.2); Carbon Dioxide 28 mmol/L (22-29); Chloride 105 mmol/L (96-108); Cholesterol 158 mg/dL (<200); Estimated Glomerular Filt Rate > 60; Glucose Random 82 mg/dL (60-115); HDL Cholesterol 39 mg/dL (>40); LDL Cholesterol Calculated 109 mg/dL (<100); Potassium 4.1 mmol/L (3.3-5.1); Sodium 140 mmol/L (135-145); Total Protein 8.4 g/dL (6.5-8.0); Triglycerides 52 mg/dL (<150)
[2024-09-06 12:49] LABS: Prostate Specific Antigen 0.37 ng/mL (<0.05-4.0)
[2024-09-06 13:15] LABS: Creatinine Urine 141.85 mg/dL; Microalbum/Creatinine Ratio Ur 6.3 ug/mg cr (<30)
== END 2024-09-06 09:56 | disposition home or self-care (01) ==
LOC: HO.LAB 09:55
PROVIDERS: PCP Hospitalist; Referring Provider Hospitalist; Visit Provider Surgery Vascular Surgery
DX: I65.23 Occlusion and stenosis of bilateral carotid arteries (principal); Z98.890 Other specified postprocedural states; Z00.00 Encounter for general adult medical examination without abnormal findings; E11.8 Type 2 diabetes mellitus with unspecified complications; Z12.5 Encounter for screening for malignant neoplasm of prostate
CPT/HCPCS: 36415; 80053; 80061; 82043; 82570; 83036; 84153; 99212

== ENCOUNTER 2024-09-10 13:17 | Outpatient (AMB) | payer MEDICARE, SELFPAY ==
[2024-09-10 13:40] VITALS: BP 106/68; PULSE 103; BMI 19.6
--- NOTE | 2024-09-10 13:40 | A.OFFVIS_ITS ---
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 He has had a left carotid endarterectomy in 2017. Multiple cardiovascular risk factors including diabetes, hypertension, dyslipidemia. History of smoking in the past but nothing recently. He also has a history of cerebral aneurysms and undergone clipping. Denies any prior coronary disease or myocardial infarction or cardiomyopathy or any other cardiac concerns. Within limits of his activity, he does not have any clear cardiac symptoms. Denies any angina. [facility] Medical History Nasopharyngeal mass CVA (cerebral vascular accident) Benign neoplasm of neck Cerebral aneurysm HTN (hypertension) Seasonal allergies Hyperlipidemia Diabetes Surgical History History of carotid endarterectomy History of surgery for cerebral aneurysm History of carpal tunnel release Family History Father Cerebral aneurysm Mother Diabetes Social History Alcohol intake: never Patient Tobacco Use Status: Never used Tobacco Review of Systems Const Denies chills, Denies daytime sleepiness, Denies fatigue, Denies fever(s), Denies poor appetite, Denies snoring, Denies stops breathing during sleep, Denies weakness, Denies weight gain and Denies weight loss Eyes Denies loss of vision ENT Denies dizziness and Denies hearing loss Card Denies chest pain, Denies irregular heart rhythm, Denies claudication, Denies leg edema, Denies lightheadedness, Denies palpitations, Denies dyspnea on exertion and Denies orthopnea Resp Denies cough, Denies excessive phlegm production, Denies dyspnea on exertion, Denies snoring and Denies wheezing GI Denies abdominal pain, Denies hematochezia, Denies change in bowel habits, Denies nausea and Denies vomiting Denies dysuria and Denies urinary frequency Musc Denies arthralgias, Denies muscle weakness, Denies numbness and Denies other Skin/Breast Denies nail changes and Denies rash Neuro Denies Abnormal speech present, Denies dizziness, Denies loss of vision, Denies memory loss, Denies numbness and Denies weakness Psych Denies depression and Denies memory loss Endo Denies fatigue and Denies palpitations Slade/Lymph Denies easy bruising Aller/Immun Denies wheezing Physical Exam Vital Signs: Last Vital Signs Pulse 103 H 09/10/24 13:40 BP 106/68 09/10/24 13:40 BMI result Body Mass Index 19.6 Const General: comfortable and no acute distress Orientation/consciousness: patient oriented x3 HEENT Other: Unremarkable Head: Yes normal to inspection Neck Neck: Yes normal visual inspection Chest Chest palpation & inspection: normal inspection of the chest Resp Auscultation: clear to auscultation bilaterally Cardio Palpation: normal PMI Heart sounds: S1 normal heart sound present, S2 normal heart sound present, no gallops, no murmurs and no rubs GI Palpation (GI): Soft to palpation Back/Spine/Pelvis Other: unremarkable Skin General skin exam: no rashes or lesions noted Neuro General: patient oriented x3 Speech: No Abnormal speech present Extrem General: Yes normal to inspection Psych Mental Status: mental status grossly normal Office Procedures EKG Details: EKG with sinus tachycardia at 103/Min; nonspecific ST-T changes in the lateral leads; [place] [id number], Complete Assessment & Plan Assessment & Plan (1) Preoperative cardiovascular examination: Code(s): Z01.810 - Encounter for preprocedural cardiovascular examination Category: Medical (2) Bilateral carotid artery stenosis: Comment: 2017 - Left carotid endarterectomy at [facility] Code(s): I65.23 - Occlusion and stenosis of bilateral carotid arteries Category: Medical (3) Diabetes: Code(s): E11.9 - Type 2 diabetes mellitus without complications Category: Medical (4) HTN (hypertension): Code(s): I10 - Essential (primary) hypertension Category: Medical (5) Hyperlipidemia: Code(s): E78.5 - Hyperlipidemia, unspecified Category: Medical Plan Multiple vascular risk factors, prior left carotid endarterectomy, now requiring right carotid endarterectomy. We will plan on an echocardiogram and exercise stress perfusion imaging study. Addendum to be made after review of the above. Orders: Orders CA echo transthoracic complete Today I25.10 - Atherosclerotic heart disease of [place] coronary artery without angina pectoris, Z01.810 - Encounter for preprocedural cardiovascular examination CA stress test Today R07.2 - Precordial pain, Z01.810 - Encounter for preprocedural cardiovascular examination NM cardiolite stress test Today R07.2 - Precordial pain, Z01.810 - Encounter for preprocedural cardiovascular examination Coding Level of Care Code New Pt Level 4 (88150) Diagnoses Preoperative cardiovascular examination Z01.810 Bilateral carotid artery stenosis I65.23 Diabetes E11.9 HTN (hypertension) I10 Hyperlipidemia E78.5 CPT Codes EKG - CPT: [id number], Complete ([id number])
--- OUTSIDE RECORDS SUMMARY | 2024-09-10 18:01 | XMS_ITS ---
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 Name Role Phone NATIVIDAD CANTRELL Primary Care Provider [phone] Allergies No Known Allergies Reason For Referral Reason THYRIOD NODULE BIOPS Y Diagnosis 1 Nontoxic single thyr oid nodule (E04.1) Referral Organization Schedule [facility] Referring Provider First Name NATIVIDAD Referring Provider Last Name TAMIA Referring Provider Speciality Internal M edicine Referred Provider Specialty Intervention al Radiology General Notes See 12/20/23 encounter ., Sanjuanita Higgins 01/24/2024 11:58:44 AM > Referral Priority Routine REASON FOR VISIT 6 month f/u Medications Medication SIG (Take, Route, Frequency, Duration) Notes Start Date End Date Status Pravastatin Sodium 40 MG TAKE 1 TABLET B Y MOUTH EVERY DAY FOR 30 DAYS for 90 Active Omeprazole 20 MG TAKE 1 CAPSULE BY [facility] EVERY DAY 30 MINUTES BEFORE BREAKFAST for 90 Active metFORMIN HCl ER 500 MG TAKE 1 TABLET BY MOUTH TWICE A DAY DIRECTED for 90 Active amLODIPine Besylate 2.5 MG TAKE 1 TABLET BY MOUTH EVERY DAY for 90 Active Valsartan 160 MG TAKE 1 TABLET BY CHRISTEL TH EVERY DAY FOR 30 DAYS for 90 days Active tiZANidine HCl 4 MG 1 tablet as needed O rally Three times a day for 7 days 03/03/2023 Active Loratadine 10 MG TAKE 1 TABLET BY CHRISTEL TH EVERY DAY for 90 days Active Meloxicam 7.5 MG TAKE 1 TABLET BY CHRISTEL TH EVERY DAY for 30 Active Flonase Allergy Relief 50 MCG/ACT 1 spray in each nostril Nasally Once a day Active one touch verio test strips - 1-2 times daily in vitro 1-2 times daily for 90 days 04/12/2022 Active one touch verio test strips - test blood sugars 3 times daily dx: E11.9 ones a week for 30 days 04/12/2022 Active one touch verio test strips Active Social History Tobacco Use: Social History Observation Description Date Details (start date - stop date) Former Smoker NA - NA Tobacco Use/Smoking Question Answer Notes Are you a former smoker How long has it been since you last smoked? > 10 years Alcohol Screen (Audit-C) Question Answer Notes Did you have a drink containing alcohol in the p ast year? No Points 0 Interpretation Negative Vital Signs Temperature 98.3 degrees Fahrenheit 01/23/20 24 Oximetry 99 % 01/23/2024 Heart Rate 95 /min 01/23/2024 Blood pressure systolic 110 mm Hg 01/23/20 Blood pressure diastolic 68 mm Hg 024 Weight 144 lbs 01/23/2024 BMI 22.55 kg/m2 01/23/2024 Height 67 in 01/23/2024 Encounters Encounter Location Date Provider Diagnosis [facility] [address] [address] 01/23/2024 NATIVIDAD CANTRELL Type 2 diabetes linnea itus with unspecified complications E11.8 ; Essential (primary) hypertension I10 ; Mixed hyperlipidemia E78.2 ; Gastro-esophageal reflux disease without esophagitis K21.9 ; Encounter for screening for malignant neoplasm of prostate Z12.5 and Nontoxic single thyroid nodule E04.1 Assessments Encounter Date Diagnosis (ICD Code) Assessment Notes Treatment Notes Treatment Clinical Notes Section Notes 01/23/2024 Type 2 diabetes mellitus with unspecified complications (ICD-10 - E11.8) Mr. Jaramillo is a 68-year-old gentleman with type 2 diabetes mellitus, GERD, hypertension, hyperlipidemia, hearing loss and uses hearing aids, seasonal allergies and cerebral aneurysm here for follow up. Plan is as follows: Type II diabetes mellitus. He checks his blood sugars at home and denies any hypoglycemic or hyperglycemic episodes. He is on right medications. He has seen his embedded systems developer in the past 1 year. Foot care discussed. Check A1c. Hypertension. Blood pressure well controlled on current regimen. Hyperlipidemia. Last lipid panel within normal limits. Continue on current regimen. Cerebral aneurysm. He is stable at this point. Seasonal allergies. Stable on Loratadine and Flonase. Carotid bruit right side. He recently MRI/MRA by neurologist and he is on aspirin 81 mg daily, pravastatin 40 mg daily. He was already referred to Vascular surgery by neurologist Cannabis use. Complications of cannabis use discussed and patient abstinence encouraged or consider gummies instead of smoking. Thyroid nodule. He recently had a thyroid ultrasound last 12/15/2023 and was recommended to have a thyroid nodule biopsy. Referred to interventional radiologist. Screening blood work before next appointment. General health concerns discussed with patient. Scribe services used to formulate this note under HIPAA compliance and under [place] law mandated for scribe services. Patient aware of service. Verbal consent and written consent taken from the patient. Patient understands and verbalizes understanding of the scribes services and all questions answered regarding scribes services. Patient agrees to use of scribes services. 01/23/2024 Essential (primary) hypertension (ICD-10 - I10) Mr. Jaramillo is a 68-year-old gentleman with type 2 diabetes mellitus, GERD, hypertension, hyperlipidemia, hearing loss and uses hearing aids, seasonal allergies and cerebral aneurysm here for follow up. Plan is as follows: Type II diabetes mellitus. He checks his blood sugars at home and denies any hypoglycemic or hyperglycemic episodes. He is on right medications. He has seen his embedded systems developer in the past 1 year. Foot care discussed. Check A1c. Hypertension. Blood pressure well controlled on current regimen. Hyperlipidemia. Last lipid panel within normal limits. Continue on current regimen. Cerebral aneurysm. He is stable at this point. Seasonal allergies. Stable on Loratadine and Flonase. Carotid bruit right side. He recently MRI/MRA by neurologist and he is on aspirin 81 mg daily, pravastatin 40 mg daily. He was already referred to Vascular surgery by neurologist Cannabis use. Complications of cannabis use discussed and patient abstinence encouraged or consider gummies instead of smoking. Thyroid nodule. He recently had a thyroid ultrasound last 12/15/2023 and was recommended to have a thyroid nodule biopsy. Referred to interventional radiologist. Screening blood work before next appointment. General health concerns discussed with patient. Scribe services used to formulate this note under HIPAA compliance and under [place] law mandated for scribe services. Patient aware of service. Verbal consent and written consent taken from the patient. Patient understands and verbalizes understanding of the scribes services and all questions answered regarding scribes services. Patient agrees to use of scribes services. 01/23/2024 Mixed hyperlipidemia (ICD-10 - E78.2) Mr. Jaramillo is a 68-year-old gentleman with type 2 diabetes mellitus, GERD, hypertension, hyperlipidemia, hearing loss and uses hearing aids, seasonal allergies and cerebral aneurysm here for follow up. Plan is as follows: Type II diabetes mellitus. He checks his blood sugars at home and denies any hypoglycemic or hyperglycemic episodes. He is on right medications. He has seen his embedded systems developer in the past 1 year. Foot care discussed. Check A1c. Hypertension. Blood pressure well controlled on current regimen. Hyperlipidemia. Last lipid panel within normal limits. Continue on current regimen. Cerebral aneurysm. He is stable at this point. Seasonal allergies. Stable on Loratadine and Flonase. Carotid bruit right side. He recently MRI/MRA by neurologist and he is on aspirin 81 mg daily, pravastatin 40 mg daily. He was already referred to Vascular surgery by neurologist Cannabis use. Complications of cannabis use discussed and patient abstinence encouraged or consider gummies instead of smoking. Thyroid nodule. He recently had a thyroid ultrasound last 12/15/2023 and was recommended to have a thyroid nodule biopsy. Referred to interventional radiologist. Screening blood work before next appointment. General health concerns discussed with patient. Scribe services used to formulate this note under HIPAA compliance and under [place] law mandated for scribe services. Patient aware of service. Verbal consent and written consent taken from the patient. Patient understands and verbalizes understanding of the scribes services and all questions answered regarding scribes services. Patient agrees to use of scribes services. 01/23/2024 Gastro-esophageal reflux disease without esophagitis (ICD-10 - K21.9) Mr. Jaramillo is a 68-year-old gentleman with type 2 diabetes mellitus, GERD, hypertension, hyperlipidemia, hearing loss and uses hearing aids, seasonal allergies and cerebral aneurysm here for follow up. Plan is as follows: Type II diabetes mellitus. He checks his blood sugars at home and denies any hypoglycemic or hyperglycemic episodes. He is on right medications. He has seen his embedded systems developer in the past 1 year. Foot care discussed. Check A1c. Hypertension. Blood pressure well controlled on current regimen. Hyperlipidemia. Last lipid panel within normal limits. Continue on current regimen. Cerebral aneurysm. He is stable at this point. Seasonal allergies. Stable on Loratadine and Flonase. Carotid bruit right side. He recently MRI/MRA by neurologist and he is on aspirin 81 mg daily, pravastatin 40 mg daily. He was already referred to Vascular surgery by neurologist Cannabis use. Complications of cannabis use discussed and patient abstinence encouraged or consider gummies instead of smoking. Thyroid nodule. He recently had a thyroid ultrasound last 12/15/2023 and was recommended to have a thyroid nodule biopsy. Referred to interventional radiologist. Screening blood work before next appointment. General health concerns discussed with patient. Scribe services used to formulate this note under HIPAA compliance and under [place] law mandated for scribe services. Patient aware of service. Verbal consent and written consent taken from the patient. Patient understands and verbalizes understanding of the scribes services and all questions answered regarding scribes services. Patient agrees to use of scribes services. 01/23/2024 Encounter for screening for malignant neoplasm of prostate (ICD-10 - Z12.5) Mr. Jaramillo is a 68-year-old gentleman with type 2 diabetes mellitus, GERD, hypertension, hyperlipidemia, hearing loss and uses hearing aids, seasonal allergies and cerebral aneurysm here for follow up. Plan is as follows: Type II diabetes mellitus. He checks his blood sugars at home and denies any hypoglycemic or hyperglycemic episodes. He is on right medications. He has seen his embedded systems developer in the past 1 year. Foot care discussed. Check A1c. Hypertension. Blood pressure well controlled on current regimen. Hyperlipidemia. Last lipid panel within normal limits. Continue on current regimen. Cerebral aneurysm. He is stable at this point. Seasonal allergies. Stable on Loratadine and Flonase. Carotid bruit right side. He recently MRI/MRA by neurologist and he is on aspirin 81 mg daily, pravastatin 40 mg daily. He was already referred to Vascular surgery by neurologist Cannabis use. Complications of cannabis use discussed and patient abstinence encouraged or consider gummies instead of smoking. Thyroid nodule. He recently had a thyroid ultrasound last 12/15/2023 and was recommended to have a thyroid nodule biopsy. Referred to interventional radiologist. Screening blood work before next appointment. General health concerns discussed with patient. Scribe services used to formulate this note under HIPAA compliance and under [place] law mandated for scribe services. Patient aware of service. Verbal consent and written consent taken from the patient. Patient understands and verbalizes understanding of the scribes services and all questions answered regarding scribes services. Patient agrees to use of scribes services. 01/23/2024 Nontoxic single thyroid nodule (ICD-10 - E04.1) Mr. Jaramillo is a 68-year-old gentleman with type 2 diabetes mellitus, GERD, hypertension, hyperlipidemia, hearing loss and uses hearing aids, seasonal allergies and cerebral aneurysm here for follow up. Plan is as follows: Type II diabetes mellitus. He checks his blood sugars at home and denies any hypoglycemic or hyperglycemic episodes. He is on right medications. He has seen his embedded systems developer in the past 1 year. Foot care discussed. Check A1c. Hypertension. Blood pressure well controlled on current regimen. Hyperlipidemia. Last lipid panel within normal limits. Continue on current regimen. Cerebral aneurysm. He is stable at this point. Seasonal allergies. Stable on Loratadine and Flonase. Carotid bruit right side. He recently MRI/MRA by neurologist and he is on aspirin 81 mg daily, pravastatin 40 mg daily. He was already referred to Vascular surgery by neurologist Cannabis use. Complications of cannabis use discussed and patient abstinence encouraged or consider gummies instead of smoking. Thyroid nodule. He recently had a thyroid ultrasound last 12/15/2023 and was recommended to have a thyroid nodule biopsy. Referred to interventional radiologist. Screening blood work before next appointment. General health concerns discussed with patient. Scribe services used to formulate this note under HIPAA compliance and under [place] law mandated for scribe services. Patient aware of service. Verbal consent and written consent taken from the patient. Patient understands and verbalizes understanding of the scribes services and all questions answered regarding scribes services. Patient agrees to use of scribes services. Plan Of Treatment Referrals Referral Date Details 01/23/2024 01/23/2024, THYRIOD NODULE BIOPSY Next Appt Details Follow Up: AW, Reason: Provider Name:Helen dailey, 02/05/2025 11:00:00 AM, [address] [place] [address], [id number], Progress Notes * Ángel JARAMILLODOB: [birth year] (68 yo M)Acc No.[id number]:01/23/2024 Progress Notes Patient:?Ángel JARAMILLO Provider:?NATIVIDAD CANTRELL MD :[id number]???Age:68 Y???Sex:Male Rishi e:01/23/2024 Address:[address] [place] [address], [address] Subjective: * Chief Complaints: * ???6 month f/u * HPI: ???Internal Medicine:? Mr. Jaramillo is a 68-year-old gentleman with type 2 diabetes mellitus, GERD, hypertension, hyperlipidemia, hearing loss and uses hearing aids, seasonal allergies and cerebral aneurysm here for follow up. He checks his blood sugars at home and denies any hypoglycemic or hyperglycemic episodes. He is status post left cataract surgery in October. He uses hearing aids. He is physically active. He gained 4 lbs since last visit. He does not appear anxious or depressed. He sleeps well, appetite is good. No GI or symptoms. He denies any other active issues or concerns. * ROS:?General/Constitutional:?Overall health?Good.?Change in appetite?denies.?Chills?denies.?Fever?denies.?Night sweats?denies.?Sleep disturbance?denies.?Weight gain?denies.?Weight loss?denies.?Neurologic:?Difficulty speaking?denies.?Dizziness?denies.?Gait abnormality?denies.?Headache?denies.?Loss of strength?denies.?Memory loss?denies.?Seizures?denies.?Tingling/Numbness?denies ?.?Ophthalmologic:?Blurred vision?denies.?Discharge?denies.?Dry eye?denies.?Red eye?denies.?ENT:?Change in Voice?Denies.?Cold Symptoms?Denies.?Cough?Denies.?Dizziness?Denies.?Nasal Congestion?Denies.?Otalgia?Denies.?postnasal drip?Denies.?Blocked ear?denies.?Nosebleed?denies.?Snoring?denies.?Cardiovascular:?Diaphoresis?Denies.?Pedal Edema?Denies.?PND (Paroxsymal nocturnal dyspnea)?Denies.?Chest pain?denies.?Difficulty laying flat?denies.?Dyspnea on exertion?denies.?Heart murmur?denies.?Orthopnea?denies.?Respiratory:?Snoring?denies.?Asthma?denies.?Cough?denies.?Shortness of breath with exertion?denies.?Sputum production?denies.?Wheezing?denies.?Gastrointestinal:?Change in bowel habits?denies.?Constipation?denies.?Decreased appetite?denies.?Diarrhea?denies.?Heartburn?denies.?Nausea?denies.?Vomiting?emil es.?Musculoskeletal:?tingling/numbness?Denies.?myalgias?Denies.?Joint Swelling?Denies.?extremeties?normal.?Arthritis?denies.?Back problems?denies.?Carpal tunnel?denies.?Joint stiffness?denies.?Muscle aches?denies.?Endocrine:?Bowel Changes?Denies.?Breast Discharge?Denies.?poor libido?Denies.?Cold intolerance?denies.?Excessive sweating?denies.?Excessive thirst?denies.?Frequent urination?denies.?Thyroid problems?denies.?Skin:?Bruising?Denies.?Eczema?denies.?Hair changes?denies.?Rash?denies.?Skin lesion(s)?denies.?Psychiatric:?Anxiety?denies.?Depressed mood?denies.?Difficulty sleeping?denies.?Nervous breakdown?denies.?Substance abuse?denies.?Urology:?abnormal menstrual bleeding?denies.?blood in urine?denies.?burning on urination?denies.?difficulty urinating?denies.?discharge?denies.?dysuria?denies.? * Medical History:? 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 Aleman, [facility] 10/2022 * Hospitalization/Major Diagno stic Procedure:?surgeries * Family History:?Father: cere bral aneurysm.?Mother: diagnosed with Diabetes.? * Social History:?Tobacco Use:?Tobacco Use/Smoking?Are you a?former smoker ?How long has it been since you last smoked??> 10 years ???Drugs/Alcohol:?Alcohol Screen (Audit-C)?Did you have a drink containing alcohol in the past year??No ?Points?0 ?Interpretation?Negative ?Do you smoke marijuana?: yes. ???Miscellaneous:?Children: 1 son. ?Living with: alone. ?Marital status: . ?Occupation: on disability due to cerebral aneurysm. * Medications:?Takingone touch verio test strips - Miscellaneous test blood sugars 3 times daily dx: E11.9 ones a week one touch verio test strips Flonase Allergy Relief 50 MCG/ACT Suspension 1 spray in each nostril Nasally Once a day one touch verio test strips - Miscellaneous 1-2 times daily in vitro 1-2 times daily tiZANidine HCl 4 MG Tablet 1 tablet as needed Orally Three times a day Loratadine 10 MG Tablet TAKE 1 TABLET BY MOUTH EVERY DAY Meloxicam 7.5 MG Tablet TAKE 1 TABLET BY MOUTH EVERY DAY Pravastatin Sodium 40 MG Tablet TAKE 1 TABLET BY MOUTH EVERY DAY FOR 30 DAYS metFORMIN HCl ER 500 MG Tablet Extended Release 24 Hour TAKE 1 TABLET BY MOUTH TWICE A DAY DIRECTED amLODIPine Besylate 2.5 MG Tablet TAKE 1 TABLET BY MOUTH EVERY DAY Valsartan 160 MG Tablet TAKE 1 TABLET BY MOUTH EVERY DAY FOR 30 DAYS Omeprazole 20 MG Capsule Delayed Release TAKE 1 CAPSULE BY MOUTH EVERY DAY 30 MINUTES BEFORE BREAKFAST Medication List reviewed and reconciled with the patientTaking one touch verio test strips - Miscellaneous test blood sugars 3 times daily dx: E11.9 ones a week Taking one touch verio test strips Taking Flonase Allergy Relief 50 MCG/ACT Suspension 1 spray in each nostril Nasally Once a day Taking one touch verio test strips - Miscellaneous 1-2 times daily in vitro 1-2 times daily Taking tiZANidine HCl 4 MG Tablet 1 tablet as needed Orally Three times a day Taking Loratadine 10 MG Tablet TAKE 1 TABLET BY MOUTH EVERY DAY Taking Meloxicam 7.5 MG Tablet TAKE 1 TABLET BY MOUTH EVERY DAY Taking Pravastatin Sodium 40 MG Tablet TAKE 1 TABLET BY MOUTH EVERY DAY FOR 30 DAYS Taking metFORMIN HCl ER 500 MG Tablet Extended Release 24 Hour TAKE 1 TABLET BY MOUTH TWICE A DAY DIRECTED Taking amLODIPine Besylate 2.5 MG Tablet TAKE 1 TABLET BY MOUTH EVERY DAY Taking Valsartan 160 MG Tablet TAKE 1 TABLET BY MOUTH EVERY DAY FOR 30 DAYS Taking Omeprazole 20 MG Capsule Delayed Release TAKE 1 CAPSULE BY MOUTH EVERY DAY 30 MINUTES BEFORE BREAKFAST Medication List reviewed and reconciled with the patient * Allergies:?N.K.D.A.no[Allerg ies Verified] Objective: * Vitals:?Temp:98.3F, Oxygen s at %:99%, HR:95/min, BP:110/68mm Hg, Wt:144lbs, BMI:22.55Index, Ht: 67 in. 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 No motor or sensory deficit.?ENT?Normal.?CVS?S1 and S2 Audible. Regular Rhythm.?Resp?Normal.?GI?Normal.?Urology/Reproductive System?Normal.?Musculoskeletal?Normal.?Psychiatry?Normal.?NECK/THYROID:?neck supple neck supple, full range of motion no cervical lymphadenopathy no thyromegaly.?Soft carotid bruit right side.? Assessment: * Assessment: 1.?Type 2 diabetes mellitus with unspecified complications - E11.8 (Primary)?2.?Essential (primary) hypertension - I10?3.?Mixed hyperlipidemia - E78.2?4.?Gastro-esophageal reflux disease without esophagitis - K21.9?5.?Encounter for screening for malignant neoplasm of prostate - Z12.5?6.?Nontoxic single thyroid nodule - E04.1? Mr. Jaramillo is a 68-year-ol d gentleman with type 2 diabetes mellitus, GERD, hypertension, hyperlipidemia, hearing loss and uses hearing aids, seasonal allergies and cerebral aneurysm here for follow up. Plan is as follows: Type II diabetes mellitus. He checks his blood sugars at home and denies any hypoglycemic or hyperglycemic episodes. He is on right medications. He has seen his embedded systems developer in the past 1 year. Foot care discussed. Check A1c. Hypertension. Blood pressure well controlled on current regimen. Hyperlipidemia. Last lipid panel within normal limits. Continue on current regimen. Cerebral aneurysm. He is stable at this point. Seasonal allergies. Stable on Loratadine and Flonase. Carotid bruit right side. He recently MRI/MRA by neurologist and he is on aspirin 81 mg daily, pravastatin 40 mg daily. He was already referred to Vascular surgery by neurologist Cannabis use. Complications of cannabis use discussed and patient abstinence encouraged or consider gummies instead of smoking. Thyroid nodule. He recently had a thyroid ultrasound last 12/15/2023 and was recommended to have a thyroid nodule biopsy. Referred to interventional radiologist. Screening blood work before next appointment. General health concerns discussed with patient. Scribe services used to formulate this note under HIPAA compliance and under [place] law mandated for scribe services. Patient aware of service. Verbal consent and written consent taken from the patient. Patient understands and verbalizes understanding of the scribes services and all questions answered regarding scribes services. Patient agrees to use of scribes services. Plan: * Treatment: 2.?Essential (primary) hyper tension?LAB: Albumin/Creatinine Ratio,Urine-[id number] (Ordered for 01/23/2024) ?LAB: Comp. Metabolic Panel ([id number] (Ordered for 01/23/2024) ?LAB: Lipid Panel-[id number] (Ordered for 01/23/2024) 3.?Encounter for screening f or malignant neoplasm of prostate?LAB: PSA (Serial Monitor)-[id number] (Ordered for 01/23/2024) 4.?Others? Referral To:Interventional Radiology ?Reason:THYRIOD NODULE BIOPSY * Procedure Codes:? * Follow Up:?AW * Images: * Sign off status: Completed true * Provider:?NATIVIDAD CANTRELL MD Date:?01/22 Generated for Patyi yariel/Linnette/eTransmitting on:?09/10/2024 06:01 PM EST History and Physical Notes * HPI (History of Present Illness) Category Sub-Category Detail Notes Category Not es Internal Medicine Mr. Heladio keane is a 68-year-old gentleman with type 2 diabetes mellitus, GERD, hypertension, hyperlipidemia, hearing loss and uses hearing aids, seasonal allergies and cerebral aneurysm here for follow up. He checks his blood sugars at home and denies any hypoglycemic or hyperglycemic episodes. He is status post left cataract surgery in October. He uses hearing aids. He is physically active. He gained 4 lbs since last visit. He does not appear anxious or depressed. He sleeps well, appetite is good. No GI or symptoms. He denies any other active issues or concerns. Examination Category Sub-Category Detail Notes Category Not es General Examination NECK/THYROID: neck supple neck supple, full range of motion no cervical lymphadenopathy no thyromegaly. 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 No motor or sensory deficit ENT Normal CVS S1 and S2 Audible. R egular Rhythm Resp Normal GI Normal Urology/Reproductive System Normal Consultation Request Notes Referral Date Referring Provider Referred Provider Not 01/23/2024 NATIVIDAD CANTRELL THYRIOD NODULE BIOPSY
--- OUTSIDE RECORDS SUMMARY | 2024-09-10 18:01 | XMS_ITS ---
Author Organization [facility] Address [address] [address] Care Team Providers Care Biometrics Consultant Name Role Phone NATIVIDAD CANTRELL Primary Care Provider REASON FOR VISIT Biopsy Encounters Encounter Location Date Provider Diagnosis [facility] [address] [facility] [address] [place] [address] 12/20/2023 NATIVIDAD CANTRELL Disorder of thyroid, unspecified E07.9 Assessments Encounter Date Diagnosis (ICD Code) Assessment Notes Treatment Notes Treatment Clinical Notes Section Notes 12/20/2023 Disorder of thyroid, unspecified (ICD-10 - E07.9) Plan Of Treatment Pending Test Test Name Order Date Ultrasound: Needle Biopsy Thyroid-Rad Next Appt Details Provider Name:Helen dailey, 02/05/2025 11:00:00 AM, [address] [place] [address], [place], [address], Progress Notes * BRIAN ÁngelDOB: (68 yo M)Acc No.[id number]:12/20/2023 Patient:?Ángel JARAMILLO :1955???Age:68 Y???Sex:Male Address:[address] [place] [address] [address] [place] [address] Subjective: * Chief Complaints: * ???Biopsy * Medical History:? * Surgical History:? * Hospitalization/Major Diagno stic Procedure:? * Medications:? Objective: Assessment: * Assessment: 1.?Disorder of thyroid, unsp ecified - E07.9? Plan: * Treatment: * Procedure Codes:? * true * Date:? Generated for Kaushik saldivar/Linnette/Em on:?09/10/2024 06:01 PM EST
--- OUTSIDE RECORDS SUMMARY | 2024-09-10 18:01 | XMS_ITS ---
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 Name Role Phone NATIVIDAD CANTRELL Primary Care Provider [phone] Allergies No Known Allergies Reason For Referral Reason DM T 2 Referral Organization [facility] Referring Provider First Name NATIVIDAD Referring Provider Last Name GUL Referring Provider Speciality Internal M edicine Referred Provider Specialty Ophthalmolog y Referral Priority Routine Reason DM T 2 FOOT EXAM Referral Organization [facility] Referring Provider First Name NATIVIDAD Referring Provider Last Name IGGY Referring Provider Speciality Internal M edicine Referred Provider Specialty Podiatry Referral Priority Routine REASON FOR VISIT Medicare Wellness Medications Medication SIG (Take, Route, Frequency, Duration) Notes Start Date End Date Status Valsartan 160 MG TAKE 1 TABLET BY CHRISTEL TH EVERY DAY FOR 30 DAYS for 90 days Active Pravastatin Sodium 40 MG TAKE 1 TABLET B Y MOUTH EVERY DAY FOR 30 DAYS for 90 days Active Omeprazole 20 MG TAKE 1 CAPSULE BY MO [facility] EVERY DAY 30 MINUTES BEFORE BREAKFAST for 90 Active Loratadine 10 MG TAKE 1 TABLET BY CHRISTEL TH EVERY DAY for 90 Active amLODIPine Besylate 2.5 MG TAKE 1 TABLET BY MOUTH EVERY DAY for 90 Active one touch verio test strips - 1-2 times daily in vitro 1-2 times daily for 90 days 04/12/2022 Active Flonase Allergy Relief 50 MCG/ACT 1 spray in each nostril Nasally Once a day Active Meloxicam 7.5 MG TAKE 1 TABLET BY CHRISTEL TH EVERY DAY for 30 Active tiZANidine HCl 4 MG 1 tablet as needed O rally Three times a day for 7 days 03/03/2023 Active metFORMIN HCl ER 500 MG TAKE 1 TABLET BY MOUTH TWICE A DAY DIRECTED for 90 Active one touch verio test strips Active one touch verio test strips - test blood sugars 3 times daily dx: E11.9 ones a week for 30 days 04/12/2022 Active Social History Tobacco Use: Social History [...] Points 0 Interpretation Negative Vital Signs Temperature 97.1 degrees Fahrenheit 08/07/20 Oximetry 98 % 08/07/2024 Heart Rate 90 /min 08/07/2024 Blood pressure systolic 114 mm Hg 08/07/20 Blood pressure diastolic 70 mm Hg 024 Weight 132.4 lbs 08/07/2024 BMI 20.73 kg/m2 08/07/2024 Height 67 in 08/07/2024 Encounters Encounter Location Date Provider Diagnosis [facility] [address] [place] [address] 08/07/2024 NATIVIDAD CANTRELL Type 2 diabetes linnea itus with unspecified complications E11.8 ; Annual physical exam Z00.00 ; Essential (primary) hypertension I10 ; Mixed hyperlipidemia E78.2 ; Gastro-esophageal reflux disease without esophagitis K21.9 ; Encounter for screening for malignant neoplasm of prostate Z12.5 and Nontoxic single thyroid nodule E04.1 Assessments Encounter Date Diagnosis (ICD Code) Assessment Notes Treatment Notes Treatment Clinical Notes Section Notes 08/07/2024 Type 2 diabetes mellitus with unspecified complications [...] on right medications. He has seen his hand shaker in the past 1 year. Foot care discussed. Check A1c.referred to hand shaker and podiatry EKG is normal sinus rhythm at 95 bpm with no acute ST or T wave changes, no bundle branch blocks, normal intervals Hypertension. Blood pressure well controlled on current [...] consider gummies instead of smoking. Thyroid nodule. stable He is full code and his healthcare proxy is his sister Elvia. MOLST form given Screening blood work before next appointment. General health concerns discussed with patient. 08/07/2024 Annual physical exam (ICD-10 - Z00.00) Mr. Jraamillo is a 68-year-old gentleman with type 2 diabetes mellitus, GERD, hypertension, hyperlipidemia, hearing loss and uses hearing aids, seasonal allergies and cerebral aneurysm here for follow up. Plan is as follows: Type II diabetes mellitus. He checks his blood sugars at home and denies any hypoglycemic or hyperglycemic episodes. He is on right medications. He has seen his hand shaker in the past 1 year. Foot care discussed. Check A1c.referred to hand shaker and podiatry EKG is normal sinus rhythm at 95 bpm with no acute ST or T wave changes, no bundle branch blocks, normal intervals Hypertension. Blood pressure well controlled on current [...] consider gummies instead of smoking. Thyroid nodule. stable He is full code and his healthcare proxy is his sister Elvia. MOLST form given Screening blood work before next appointment. General health concerns discussed with patient. 08/07/2024 Essential (primary) hypertension (ICD-10 - I10) Mr. [...] on right medications. He has seen his hand shaker in the past 1 year. Foot care discussed. Check A1c.referred to hand shaker and podiatry EKG is normal sinus rhythm at 95 bpm with no acute ST or T wave changes, no bundle branch blocks, normal intervals Hypertension. Blood pressure well controlled on current [...] consider gummies instead of smoking. Thyroid nodule. stable He is full code and his healthcare proxy is his sister Elvia. MOLST form given Screening blood work before next appointment. General health concerns discussed with patient. 08/07/2024 Mixed hyperlipidemia (ICD-10 - E78.2) Mr. Jaramillo [...] on right medications. He has seen his hand shaker in the past 1 year. Foot care discussed. Check A1c.referred to hand shaker and podiatry EKG is normal sinus rhythm at 95 bpm with no acute ST or T wave changes, no bundle branch blocks, normal intervals Hypertension. Blood pressure well controlled on current [...] consider gummies instead of smoking. Thyroid nodule. stable He is full code and his healthcare proxy is his sister Elvia. MOLST form given Screening blood work before next appointment. General health concerns discussed with patient. 08/07/2024 Gastro-esophageal reflux disease without esophagitis (ICD-10 - [...] on right medications. He has seen his hand shaker in the past 1 year. Foot care discussed. Check A1c.referred to hand shaker and podiatry EKG is normal sinus rhythm at 95 bpm with no acute ST or T wave changes, no bundle branch blocks, normal intervals Hypertension. Blood pressure well controlled on current [...] consider gummies instead of smoking. Thyroid nodule. stable He is full code and his healthcare proxy is his sister Elvia. MOLST form given Screening blood work before next appointment. General health concerns discussed with patient. 08/07/2024 Encounter for screening for malignant neoplasm of [...] on right medications. He has seen his hand shaker in the past 1 year. Foot care discussed. Check A1c.referred to hand shaker and podiatry EKG is normal sinus rhythm at 95 bpm with no acute ST or T wave changes, no bundle branch blocks, normal intervals Hypertension. Blood pressure well controlled on current [...] consider gummies instead of smoking. Thyroid nodule. stable He is full code and his healthcare proxy is his sister Elvia. MOLST form given Screening blood work before next appointment. General health concerns discussed with patient. 08/07/2024 Nontoxic single thyroid nodule (ICD-10 - E04.1) [...] on right medications. He has seen his hand shaker in the past 1 year. Foot care discussed. Check A1c.referred to hand shaker and podiatry EKG is normal sinus rhythm at 95 bpm with no acute ST or T wave changes, no bundle branch blocks, normal intervals Hypertension. Blood pressure well controlled on current [...] consider gummies instead of smoking. Thyroid nodule. stable He is full code and his healthcare proxy is his sister Elvia. MOLST form given Screening blood work before next appointment. General health concerns discussed with patient. Plan Of Treatment Future Test Test Name Order Date Hemoglobin [id number] 08/07/2024 Albumin/Creatinine Ratio,Urine-[id number] Lipid Panel-[id number] 08/07/2024 Comp. Metabolic Panel ([id number] 2023 PSA (Serial Monitor)-[id number] 08/07/2024 Referrals Referral Date Details 08/07/2024 08/07/2024, DM T 2 08/07/2024 08/07/2024, DM T 2 F OOT EXAM Next Appt Details Follow Up: 6 Months, Reason: Provider Name:Helen dailey 02/05/2025 11:00:00 AM, [address] [address], [place], [address], Progress Notes * Ángel JARAMILLODOB: (69 yo M)Acc No.[id number]:08/07/2024 Progress Note Patient:?Ángel JARAMILLO Provider:?NATIVIDAD CANTRELL MD :[id number]???Age:69 Y???Sex:Male Rishi e:08/07/2024 Address:[address] [place], [place] [id number] Subjective: * Chief Complaints: * ???Medicare Wellness * HPI: ???Internal Medicine:?Mr. Jaramillo is a 68-year-old gentleman with type 2 diabetes mellitus, GERD, hypertension, hyperlipidemia, hearing loss and uses hearing aids, seasonal allergies and cerebral aneurysm here for annual physical.. He checks his blood sugars at home and denies any hypoglycemic or hyperglycemic episodes. He is status post left cataract surgery in October. He uses hearing aids. He is physically active. He gained 4 lbs since last visit. He does not appear anxious or depressed. He sleeps well, appetite is good. No GI or symptoms. He denies any other active issues or concerns. ???Patient Care Team:?-?No Providers on Record.?Medicare Annual Visit:?Type of Visit?-?Subsequent Annual Wellness Visit ?Language or Communication barrier addressed?-?Yes ?Health Risk Assessment?DEMOGRAPHICS?- ?- How old are you??[age] ?- How would you best describe your ethnicity??Black or ?- How would you describe your marital status?- How would you describe your employment status??Unable to work ?- How many children do you have??one ?RISK ASSESSMENT?- ?- Do you currently use tobacco products??No ?- Have you ever used tobacco products??No SMOKE CANNABIS ?- What type of tobacco do you use or have you used??__ ?- (If cigarette smoker) How long have you smoked??__ ?- (If cigarette smoker) How many cigarettes do you smoke per day??__ ?- How many alcoholic beverages (i.e. 1oz hard liquor, one glass of wine, one bottle of beer) do you drink daily, on average??None ?- Have you ever felt the need to cut down on drinking??No ?- Have people annoyed you with criticism of your drinking??No ?- Do you or have you felt guilty for drinking??No ?- Have you ever felt the need to drink first thing in the morning to steady your nerves or to get rid of a hangover??No ?- How often do you exercise??Daily ?- How vigorously can you exercise??Minimally ?- How often do you use seatbelts??Always ?- In the past month, how often have you had sex??__ ?- Do you have any significant difficulties or dysfunction during sex??No, never ?- How many partners do you have??__ ?- How often do you experience pain with sex??Never ?- How often do you use condoms during sex??Always ?MENTAL HEALTH ASSESSMENT?- ?- In the past two weeks, how often have you felt depressed, down or hopeless??Never ?- In the past month, how often have you felt anxious or stressed??Never ?- What is your average level of daily stress??None ?- In the past two weeks, how often have you felt a lack of pleasure or interest in doing things??Never ?- In the past two weeks, how often have you had difficulty falling asleep or episodes of sleeping too long??Never ?- In the past two weeks, how often have you had a lack of energy??Never ?- In the past two weeks, how often have you had feelings of being better off or thoughts of harming yourself??Never ?- Have you ever attempted to harm yourself??No ?GENERAL HEALTH/PAIN ASSESSMENT?- ?- In the past month, how often did you experience pain??Never ?- In the past month, how much has pain affected your ability to work??Not at all ?- In the past month, how much has pain affected your ability to walk??Not at all ?- In the past month, how much has pain affected your relationship with other people??Not at all ?- On a scale of 1-10, how bad would you rate your average daily pain??No pain ?- How would you describe the ease with which you can prepare your own food??Very easy ?- How would you describe the ease with which you can bathe or clean yourself??Very easy ?- How would you describe the ease with which you can dress yourself??Very easy ?- How hard is it to use the toilet by yourself??Not hard at all ?- How would you describe the ease with which you can do your own shopping??Very easy ?- How would you describe the ease with which you can get around your house??Very easy ?- How would you describe your ability to pay your bills??Very good ?- How would you describe your ability to plan your daily and monthly budgets??Very good ?- How would you describe your ability to do routine housework??Very good ?HOME SAFETY/ASSISTANCE?- ?- Do you feel like you are safe in your current home??Yes ?- How many times have you fallen in your home??Never ?- How much would you need to change your living circumstances to feel safe??Not at all ?- Do you feel that living somewhere else would be good for you??No ?- How much help do you feel you need at home??None at all ?- How much does your family help with daily or routine chores??Not at all ?Immunization Status addressed?-?Yes ?Depression Screening?-?No ?Vision Screening?-?No ?Hearing Screening?-?No ?Fall Risk and Home Safety?-?Negative, no falls in the past year, no difficulty walking, or getting out of bed or chair ?Medication evaluation and reconcilliation performed?Yes ?Vision screening recommended?Yes ?Literature offered to the patient?Yes ?Referrals?physical therapy offered for gait balance and mobility evaluation, fall prevention home evauation offered, DEXA screening offered ?Get Up and Go Evaluation?under 20 seconds ?Psychosocial Risks?-?No overt psychosocial risks shown, observed, or mentioned ?Behavioral Risks?-?Patient seems very well adjusted and no behavorial issues noted ?Activities of daily living?-?Not impaired ?Cognitive Screening?-?No overt cognitive deficiency is apparent by direct observation * ROS:?General/Constitutional:?Overall health?Good.?Change in appetite?denies.?Chills?denies.?Fever?denies.?Night sweats?denies.?Sleep disturbance?denies.?Weight gain?denies.?Weight loss?denies.?Neurologic:?Difficulty speaking?denies.?Dizziness?denies.?Gait abnormality?denies.?Headache?denies.?Loss of strength?denies.?Memory loss?denies.?Seizures?denies.?Tingling/Numbness?denies .?Ophthalmologic:?Blurred vision?denies.?Discharge?denies.?Dry eye?denies.?Red eye?denies.?ENT:?Change in Voice?Denies.?Cold Symptoms?Denies.?Cough?Denies.?Dizziness?Denies.?Nasal Congestion?Denies.?Otalgia?Denies.?postnasal [...] age 11 left cataract surgery, Dr. Aleman, [facility] 10/2022 * Hospitalization/Major Diagno stic Procedure:? * Family History:?Father: cere bral aneurysm.?Mother: diagnosed [...] as needed Orally Three times a day Meloxicam 7.5 MG Tablet TAKE 1 TABLET BY MOUTH EVERY DAY metFORMIN HCl ER 500 MG Tablet Extended Release 24 Hour TAKE 1 TABLET BY MOUTH TWICE A DAY DIRECTED amLODIPine Besylate 2.5 MG Tablet TAKE 1 TABLET BY MOUTH EVERY DAY Valsartan 160 MG Tablet TAKE 1 TABLET BY MOUTH EVERY DAY FOR 30 DAYS Omeprazole 20 MG Capsule Delayed Release TAKE 1 CAPSULE BY MOUTH EVERY DAY 30 MINUTES BEFORE BREAKFAST Pravastatin Sodium 40 MG Tablet TAKE 1 TABLET BY MOUTH EVERY DAY FOR 30 DAYS Loratadine 10 MG Tablet TAKE 1 TABLET BY MOUTH EVERY DAY Medication List reviewed and reconciled with the [...] needed Orally Three times a day Taking Meloxicam 7.5 MG Tablet TAKE 1 TABLET BY MOUTH EVERY DAY Taking metFORMIN HCl ER 500 MG Tablet [...] MOUTH EVERY DAY 30 MINUTES BEFORE BREAKFAST Taking Pravastatin Sodium 40 MG Tablet TAKE 1 TABLET BY MOUTH EVERY DAY FOR 30 DAYS Taking Loratadine 10 MG Tablet TAKE 1 TABLET BY MOUTH EVERY DAY Medication List reviewed and reconciled with the patient * Allergies:?N.K.D.A.no[Allerg ies Verified] Objective: * Vitals:?Temp:97.1F, Oxygen s at %:98%, HR:90/min, BP:114/70mm Hg, Wt:132.4lbs, BMI:20.73Index, Ht: 67 in. 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 No motor or sensory deficit.?ENT?Normal.?CVS?S1 and S2 Audible. Regular Rhythm.?Resp?Normal.?GI?Normal.?Urology/Reproductive System?Normal.?Musculoskeletal?Normal.?Psychiatry?Normal.?NECK/THYROID:?neck supple neck supple, full range of motion no cervical lymphadenopathy no thyromegaly.?Soft carotid bruit right side.?Diabetic Foot Exam: ?Appearance?dry skin.?Light Touch Sensation?normal.?Sense of Vibration?normal.?Pulse: Posterior Tibial?+2.?Pulse: Dorsal Pedis?2.?Hammer Toe?negative.?Tinea Pedis?tinea unguium.?Skin Changes?normal.? Assessment: * Assessment: 1.?Annual physical exam - Z0 0.00 (Primary)???2.?Type 2 diabetes mellitus with unspecified complications - E11.8???3.?Essential (primary) hypertension - I10???4.?Mixed hyperlipidemia - E78.2???5.?Gastro-esophageal reflux disease without esophagitis - K21.9???6.?Encounter for screening for malignant neoplasm of prostate - Z12.5???7.?Nontoxic single thyroid nodule - E04.1??? Mr. Jaramillo is a 68-year-ol d gentleman with type 2 diabetes mellitus, GERD, hypertension, hyperlipidemia, hearing loss and uses hearing aids, seasonal allergies and cerebral aneurysm here for follow up. Plan is as follows: Type II diabetes mellitus. He checks his blood sugars at home and denies any hypoglycemic or hyperglycemic episodes. He is on right medications. He has seen his hand shaker in the past 1 year. Foot care discussed. Check A1c.referred to hand shaker and podiatry EKG is normal sinus rhythm at 95 bpm with no acute ST or T wave changes, no bundle branch blocks, normal intervals Hypertension. Blood pressure well controlled on current [...] consider gummies instead of smoking. Thyroid nodule. stable He is full code and his healthcare proxy is his sister Cynthia. VILLA form given Screening blood work before next appointment. General health concerns discussed with patient. Plan: * Treatment: 2.?Others? Referral To:Ophthalmology ?Reason:DM T 2 ? Referral To:Podiatry ?Reason:DM T 2 FOOT EXAM * Labs:? * ?Lab: PSA (Serial Monito r)-[id number] (Ordered for 08/07/2024) * Procedure Codes:?G0439 ANNUA L WELLNESS VST; PPS SUBSQT [id number] SYST BP LT 130 MM [id number] DIAST BP < 80 MM [id number] ELECTROCARDIOGRAM, [id number] ANNUAL DEPRESSION SCREENING 15 [id number] ANNUAL ALCOHOL MISUSE SCREEN 15 [id number] BODY MASS INDEX [id number] Pt scrn tbco id as non [id number] ADVNC CARE PLAN IN RCRD * Preventive Medicine:? ??YOUR PREVENTIVE WELLNESS PLAN:?BMI, Height, and Weight:?The Recommended Frequency is:?Annually ?Blood Pressure:?The Recommended Frequency is:?Every 2 years, if BP </= 120/80 mm Hg, Annually, if BP >120-139/80-89 mm Hg ?Vision:?The Recommended Frequency is:?Every 3 years up to age 40, Every 2 years aged 40+ ?Abdominal Aortic Aneurysm:?The Recommended Frequency is:?Once, between the age range of 65-75 and for those who have smoked 100+ cigarettes in lifetime ?Cholesterol Testing:?The Recommended Frequency is:?Regularly beginning at age 20 with risk factors ?Diabetes Screening:?The Recommended Frequency is:?With a sustained BP >/= 135/80 mm Hg ?Colorectal Cancer Screening:?The Recommended Frequency is:?Annually, Fecal Occult Blood Stool (FOBS), Every 5 years, Sigmoidoscopy with FOBS, Every 10 years, Colonoscopy ?Prostate Cancer Screening (Digital Rectal Exam [ARIANE]/Prostate Specific Antigen [PSA]):?The Recommended Frequency is:?Annually, age 50 or older ?Sexually Transmitted Diseases (STDs):?The Recommended Frequency is:?As necessary for those with risk factors ?Depression Screening:?The Recommended Frequency is:?As necessary for those with risk factors ?Alcohol Misuse Screening:?The Recommended Frequency is:?As necessary for those with risk factors ?Pneumococcal (Pneumonia) Vaccine:?The Recommended Frequency is:?1-2 doses up to age 64, 1 dose age 65+ ?Influenza (Flu) Vaccine:?The Recommended Frequency is:?Annually ?Other:?____.?Major Risk Factors:?Your Major Risk Factors Include:?Diabetes, Fall risk, Hypertension, Obesity, Smoking use, Other ?Recommendations For Improvement?The recommendations are:?Diet, Exercise, Tobacco cessation, Weight management, Other ?Additional Resources Included:?follow-up instructions, handouts, referrals.?COVID (2) 2020 FLU DECLINES? PPV23 03/2014 TDAP 03/2014 BMD NO? COLONOSCOPY UNKNOWN DATE? EYE EXAM [facility] 2022 This plan was discussed, printed, and handed to patient. * Follow Up:?6 Months * * Sign off status: Completed true * Provider:?NATIVIDAD CANTRELL MD Date:?08/07 Generated for Kaushik saldivar/Linnette/Em on:?09/10/2024 06:01 PM EST History and Physical Notes * HPI (History of Present Illness) Category Sub-Category Detail Notes Category Not es Medicare Annual Visit Type of Visit -: Subsequ ent Annual Wellness Visit Language or Communication barrier addressed -: Y es Health Risk Assessment DEMOGRAPHICS: - - How old are [age]?: 65-69 - How would you best describ e your ethnicity?: Black or - How would you describe your marital st atus?: - How would you describe your employment status?: Unable to work - How many children do you have?: one RISK ASSESSMENT: - - Do you currently use tobacco products? : No - Have you ever used tobacco products?: No SMOKE CANNABIS - What type of tobacco do you use or hav e you used?: __ - (If cigarette smoker) How long have yo u smoked?: __ - (If cigarette smoker) How many cigaret meg do you smoke per day?: __ - How many alcoholic beverag es (i.e. 1oz hard liquor, one glass of wine, one bottle of beer) do you drink daily, on average?: None - Have you ever felt the need to cut alysha n on drinking?: No - Have people annoyed you with criticism of your drinking?: No - Do you or have you felt guilty for dri nking?: No - Have you ever felt the nee d to drink first thing in the morning to steady your nerves or to get rid of a hangover?: No - How often do you exercise?: Daily - How vigorously can you exercise?: Mini anna - How often do you use seatbelts?: Alway s - In the past month, how often have you had sex?: __ - Do you have any significan t difficulties or dysfunction during sex?: No, never - How many partners do you have?: __ - How often do you experience pain with sex?: Never - How often do you use condoms during se x?: Always MENTAL HEALTH ASSESSMENT: - - In the past two weeks, how often have you felt depressed, down or hopeless?: Never - In the past month, how oft en have you felt anxious or stressed?: Never - What is your average level of daily st ress?: None - In the past two weeks, how often have you felt a lack of pleasure or interest in doing things?: Never - In the past two weeks, how often have you had difficulty falling asleep or episodes of sleeping too long?: Never - In the past two weeks, how often have you had a lack of energy?: Never - In the past two weeks, how often have you had feelings of being better off or thoughts of harming yourself?: Never - Have you ever attempted to harm yourse lf?: No GENERAL HEALTH/PAIN ASSESSMENT: - - In the past month, how often did you e xperience pain?: Never - In the past month, how muc h has pain affected your ability to work?: Not at all - In the past month, how muc h has pain affected your ability to walk?: Not at all - In the past month, how muc h has pain affected your relationship with other people?: Not at all - On a scale of 1-10, how ba d would you rate your average daily pain?: No pain - How would you describe the ease with which you can prepare your own food?: Very easy - How would you describe the ease with which you can bathe or clean yourself?: Very easy - How would you describe the ease with which you can dress yourself?: Very easy - How hard is it to use the toilet by yo urself?: Not hard at all - How would you describe the ease with which you can do your own shopping?: Very easy - How would you describe the ease with which you can get around your house?: Very easy - How would you describe your ability to pay your bills?: Very good - How would you describe you r ability to plan your daily and monthly budgets?: Very good - How would you describe you r ability to do routine housework?: Very good HOME SAFETY/ASSISTANCE: - - Do you feel like you are safe in your current home?: Yes - How many times have you fallen in your home?: Never - How much would you need to change your living circumstances to feel safe?: Not at all - Do you feel that living somewhere else would be good for you?: No - How much help do you feel you need at home?: None at all - How much does your family help with daily or routine chores?: Not at all Immunization Status addressed -: Yes Vision Screening -: No Depression Screening -: No Hearing Screening -: No Fall Risk and Home Safety -: Negative, n o falls in the past year, no difficulty walking, or getting out of bed or chair Medication evaluation and reconcilliatio n performed: Yes Vision screening recommended: Yes Literature offered to the patient: Yes Referrals: physical therapy offered for gait balance and mobility evaluation, fall prevention home evauation offered, DEXA screening offered Get Up and Go Evaluation: under 20 secon ds Psychosocial Risks -: No overt psychoso cial risks shown, observed, or mentioned Behavioral Risks -: Patient seems vineet y well adjusted and no behavorial issues noted Activities of daily living -: Not impaired Cognitive Screening -: No overt cognitiv e deficiency is apparent by direct observation Patient Care Team - No Providers on Record Internal Medicine Mr. Heladio keane is a 68-year-old gentleman with type 2 diabetes mellitus, GERD, hypertension, hyperlipidemia, hearing loss and uses hearing aids, seasonal allergies and cerebral aneurysm here for annual physical.. 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 No motor or sensory deficit ENT Normal CVS S1 and S2 Audible. R egular Rhythm Resp Normal GI Normal Urology/Reproductive System Normal Diabetic Foot Exam Appearance dry skin Light Touch Sensation normal Sense of Vibration normal Pulse: Posterior Tibial +2 Pulse: Dorsal Pedis 2 Hammer Toe negative Tinea Pedis tinea unguium Skin Changes normal Consultation Request Notes Referral Date Referring Provider Referred Provider Not es 08/07/2024 NATIVIDAD CANTRELL DM T 2 08/07/2024 NATIVIDAD CANTRELL DM T 2 FOOT EX AM
== END 2024-09-10 14:02 | disposition home or self-care (01) ==
PROVIDERS: PCP Hospitalist; Visit Provider Internal Medicine
DX: I65.23 Occlusion and stenosis of bilateral carotid arteries (principal); E11.9 Type 2 diabetes mellitus without complications; I10 Essential (primary) hypertension; Z01.810 Encounter for preprocedural cardiovascular examination; E78.5 Hyperlipidemia, unspecified; R00.0 Tachycardia, unspecified
CPT/HCPCS: 93010; 99204

== ENCOUNTER → 2024-09-10 13:17 | Outpatient (BNVA) | payer MEDICARE, SELFPAY | PROVIDERS: PCP Hospitalist; Visit Provider Internal Medicine | DX: Z01.810 Encounter for preprocedural cardiovascular examination (principal); I65.23 Occlusion and stenosis of bilateral carotid arteries; I25.10 Atherosclerotic heart disease of native coronary artery without angina pectoris; I10 Essential (primary) hypertension; E11.9 Type 2 diabetes mellitus without complications; E78.5 Hyperlipidemia, unspecified | CPT/HCPCS: 93005; 99202 ==

== ENCOUNTER → 2024-09-19 10:05 | Outpatient (BNV) | payer MEDICARE, SELFPAY | PROVIDERS: PCP Hospitalist; Visit Provider Internal Medicine Cardiovascular Disease | DX: I27.20 Pulmonary hypertension, unspecified (principal); I51.7 Cardiomegaly; I34.0 Nonrheumatic mitral (valve) insufficiency; I36.1 Nonrheumatic tricuspid (valve) insufficiency | CPT/HCPCS: 93306 ==

== ENCOUNTER → 2024-10-26 23:59 | Outpatient (BNV) | payer MEDICARE, SELFPAY | PROVIDERS: PCP Hospitalist; Visit Provider Internal Medicine Cardiovascular Disease | DX: I42.9 Cardiomyopathy, unspecified (principal); Z01.810 Encounter for preprocedural cardiovascular examination | CPT/HCPCS: 93458; 99152 ==

== ENCOUNTER 2024-11-02 09:08 | Outpatient (AMB) | payer MEDICARE, SELFPAY ==
[2024-11-02 09:11] VITALS: BP 116/72; PULSE 93; BMI 19.8
--- NOTE | 2024-11-02 09:11 | A.OFFVIS_ITS ---
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: No Accompanied by: Self / Same As Patient Allergies No Known Allergies Allergy (Verified 09/06/24 10:02) Medication List - Last Reconciled 11/02/24 by Doreen Cisneros, EDA-C amlodipine 2.5 mg PO QAM aspirin 81 mg PO QAM loratadine 10 mg PO QAM metformin ER 500 mg PO BID omeprazole 20 mg PO QAM pravastatin 40 mg PO BEDTIME valsartan 160 mg PO QAM HPI HPI Follow up post cardiac cath: Details: Ángel is a 69-year-old male past medical history of prior smoking, hypertension, hyperlipidemia, diabetes, carotid stenosis who recently had an echocardiogram and cardiac catheterization and now presents for follow-up. Today he reports that he has been doing well with no concerning symptoms. He does not know when he will be having carotid surgery. No chest discomfort at rest or with activity. He denies shortness of breath, PND, orthopnea or edema. No heart palpitations, lightheadedness, presyncope, syncope. 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 He reports compliance with his medications. He has no concerns for sleep apnea. He says he has not drank alcohol in over 20 years. [facility] Medical History Aphasia [place] (hard of hearing) Family history of sickle cell disease GERD (gastroesophageal reflux disease) Nasopharyngeal mass CVA (cerebral vascular accident) Cerebral aneurysm HTN (hypertension) Seasonal allergies Hyperlipidemia Diabetes Surgical History Hx of cardiac cath Hx of left cataract extraction H/O colonoscopy Hx of neck surgery History of carotid endarterectomy History of surgery for cerebral aneurysm History of carpal tunnel release Family History Father Cerebral aneurysm Mother Diabetes Social History Are you a primary healthcare educator to a significant other at home: No Do you presently have visiting nurse or other home services: No Alcohol intake: never Patient Tobacco Use Status: Former Tobacco user Tobacco use type: Cigarette Years Smoked: 4 Review of Systems Const All systems reviewed & are unremarkable except as noted in HPI and below Denies chills, Denies fatigue, Denies fever(s), Denies weight gain and Denies weight loss ENT Denies dizziness Card Denies chest pain, Denies leg edema, Denies lightheadedness, Denies palpitations, Denies dyspnea on exertion, Denies orthopnea and Denies other Resp Denies cough and Denies dyspnea on exertion GI Denies hematochezia and Denies change in stool character Musc Denies abnormal gait, Denies muscle weakness, Denies numbness, Denies radiating pain into limb and Denies tingling Neuro Denies abnormal gait, Denies dizziness, Denies numbness and Denies tingling Endo Denies fatigue and Denies palpitations Physical Exam Vital Signs: Last Vital Signs Pulse 93 11/02/24 09:11 BP 116/72 11/02/24 09:11 BMI result Body Mass Index 19.8 Const Other: thin built General: cooperative, comfortable and no acute distress Orientation/consciousness: patient oriented x3 Neck Neck: Yes normal visual inspection and Yes no JVD Resp Effort & Inspection: normal respiratory effort Auscultation: clear to auscultation bilaterally, no crackles, no rales, no rhonchi and no wheezes Cardio Rate: regular rate Rhythm: regular rhythm Heart sounds: S1 normal heart sound present, S2 normal heart sound present, no gallops, no murmurs and no rubs Neuro General: patient oriented x3 Extrem General: Yes normal to inspection, No no pedal edema and No calf tenderness Psych Appearance: grossly normal Mental Status: mental status grossly normal Speech and movement: Normal speech and movement present Assessment & Plan Assessment & Plan (1) Cardiomyopathy: Code(s): I42.9 - Cardiomyopathy, unspecified Category: Medical Plan: Echocardiogram done as part of preop evaluation on 10/04/2024 showing EF 30-35%, mild biatrial enlargement, mild MR, mild TR and moderate increase in the RVSP. He then underwent a cardiac catheterization on 10/26/2024 showing normal coronary arteries. He has nonischemic cardiomyopathy for unclear reason. He has no signs of heart failure on examination. NYHA class 1. Will stop amlodipine and valsartan. Will start metoprolol XL and Entresto for neurohormonal modulation. He is not requiring diuretics. Will arrange blood pressure check in our office in 1 week. BMP in 1 week. Limited echocardiogram in 3 months. Cardiology follow-up 3 months, sooner if needed. (2) Hx of cardiac cath: Comment: 10/26/2024, normal coronaries Code(s): Z98.890 - Other specified postprocedural states Category: Surgical Plan: Right radial catheterization site well healed (3) Bilateral carotid artery stenosis: Comment: 2017 - Left carotid endarterectomy at [facility] Code(s): I65.23 - Occlusion and stenosis of bilateral carotid arteries Category: Medical Plan: Follows with Dr. Burleson (4) HTN (hypertension): Code(s): I10 - Essential (primary) hypertension Category: Medical Plan: Normal range at present. Medication changes as above. Changes were written for him clearly on his after visit summary. (5) Preoperative cardiovascular examination: Code(s): Z01.810 - Encounter for preprocedural cardiovascular examination Category: Medical Plan: Preop for carotid endarterectomy with Dr. Burleson, no date yet. Patient may proceed with intermediate cardiac risk. Avoid fluid overload due to cardiomyopathy. Aspirin can be held as needed for the procedure. Call/consult Cardiology if needed. Plan Time spent on chart review, documentation, interview and assessment Orders: Orders Basic Metabolic Panel Today I42.9 - Cardiomyopathy, unspecified CA Echo Limited 01/14/25 I42.9 - Cardiomyopathy, unspecified Medications: New metoprolol succinate ER 25 mg PO DAILY 30 tabs 5RF sacubitril-valsartan 24-26 mg (Entresto) 1 tab PO BID 60 tabs 5RF Coding Level of Care Code Est Pt Level 4 (31500) Complex EM visit Add On G2211 Diagnoses Cardiomyopathy I42.9 Hx of cardiac cath Z98.890 Bilateral carotid artery stenosis I65.23 HTN (hypertension) I10 Preoperative cardiovascular examination Z01.810 Time Spent (min) 36
== END 2024-11-02 09:34 | disposition home or self-care (01) ==
LOC: HO.HCS 09:09
PROVIDERS: PCP Hospitalist; Visit Provider Nurse Practitioner Family
DX: I42.9 Cardiomyopathy, unspecified (principal); Z98.890 Other specified postprocedural states; I65.23 Occlusion and stenosis of bilateral carotid arteries; I10 Essential (primary) hypertension; Z01.810 Encounter for preprocedural cardiovascular examination
CPT/HCPCS: 99214; G2211

== ENCOUNTER → 2024-11-02 09:08 | Outpatient (BNVA) | payer MEDICARE, SELFPAY | PROVIDERS: PCP Hospitalist; Visit Provider Nurse Practitioner Family | DX: Z01.810 Encounter for preprocedural cardiovascular examination (principal); I42.9 Cardiomyopathy, unspecified; I10 Essential (primary) hypertension; I65.23 Occlusion and stenosis of bilateral carotid arteries; Z98.890 Other specified postprocedural states | CPT/HCPCS: 99212 ==

== ENCOUNTER 2024-11-12 08:00 | Day surgery (SDC) | payer MEDICARE, SELFPAY ==
[2024-10-15 10:27] VITALS: BP 144/71; PULSE 84; RESP 18; O2SAT 98; BMI 19.6
--- NOTE | 2024-10-15 10:43 | HO.ANESPROP2 ---
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 Cerebral aneurysms followed by neuro PMFSH Active Problems Active Problems: All Active Problems Preoperative cardiovascular examination (Acute) Bilateral carotid artery stenosis (Acute) Thyroid nodule (Acute) Carotid artery stenosis (Acute) Nasopharyngeal mass (Acute) History of carotid endarterectomy (Acute) Cerebral aneurysm (Acute) HTN (hypertension) (Acute) Seasonal allergies (Acute) Hyperlipidemia (Acute) Diabetes (Acute) Past Medical History Medical History Aphasia [place] (hard of hearing) Family history of sickle cell disease GERD (gastroesophageal reflux disease) Nasopharyngeal mass CVA (cerebral vascular accident) Cerebral aneurysm HTN (hypertension) Seasonal allergies Hyperlipidemia Diabetes Family History Family History Father Cerebral aneurysm Mother Diabetes Surgical History Surgical History Hx of cardiac cath Hx of left cataract extraction H/O colonoscopy Hx of neck surgery History of carotid endarterectomy History of surgery for cerebral aneurysm History of carpal tunnel release Social History Social History Are you a primary respite care provider to a significant other at home: No Do you presently have visiting nurse or other home services: No Alcohol intake: never Patient Tobacco Use Status: Former Tobacco user Tobacco use type: Cigarette Years Smoked: 4 Meds Allergies Allergy/AdvReac Type Severity Reaction Status Date / Time No Known Allergies Allergy Verified 11/12/24 10:04 Home Medications ?Medication ?Instructions ?Recorded ?Confirmed ?Last Taken ?Type loratadine 10 mg tablet 10 mg PO QAM 03/23/23 11/12/24 Unknown History metformin 500 mg tablet,extended 500 mg PO BID 03/23/23 11/12/24 Unknown History release 24 hr omeprazole 20 mg capsule,delayed 20 mg PO QAM 03/23/23 11/12/24 11/12/24 History release pravastatin 40 mg tablet 40 mg PO BEDTIME 03/23/23 11/12/24 Unknown History aspirin 81 mg tablet,delayed 81 mg PO QAM 10/15/24 11/12/24 Unknown History release Exam Height,Weight and Vital Signs: Height 5 ft 9 in Weight 60.328 kg Last Vital Signs Pulse 84 10/15/24 10:27 Resp 18 10/15/24 10:27 BP 144/71 H 10/15/24 10:27 Pulse Ox 98 10/15/24 10:27 O2 Del Method Room Air 10/15/24 10:27 Narrative Narrative: ECHO 2024 Conclusions: - 1. Moderate to severely reduced LV ejection fraction of 30-35% with mild LVH with regional wall motion abnormality with impaired relaxation filling pattern 2. Mild biatrial enlargement 3. Mild mitral and tricuspid regurgitation 4. Moderately elevated right ventricular systolic pressure 5. No gross pericardial effusion EKG 08/2024 ST @ 105 Cardiac cath 10/2024 Conclusions Diagnostic Summary 69-year-old gentleman who has moderate cardiomyopathy by echocardiography and is being considered for right carotid endarterectomy. He is referred to us for diagnostic angiogram rule out obstructive coronary disease. Hemodynamics: Elevated systemic pressures. Normal LVEDP. There is no significant gradient across aortic valve pullback. Coronary anatomy: Right dominant circulation. No significant coronary disease noted. Proceed for carotid endarterectomy with intermediate risk for perioperative cardiovascular complications. Diagnostic Recommendations Continue aspirin 81 mg/day indefinitely. Aggressive secondary risk factor modification according to ATP III guidelines. Can proceed with carotid endarterectomy. 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 Coronary arteries clean per cardiac cath report. Non-ischemic cardiomyopathy of unknown cause ? nasopharyngeal fullness. H/o laser surgery and radiation aged 16 Fluid in mastoid air cells- ? significance ?mastoiditis Thyroid nodules and enlarged left thyroid lobe with tracheal deviation to right Entresto and metoprolol ordered by Cardiology for patient post cardiac cath. Patient did not start either- Spoke with Camille King and Sorin. State ok to proceed with surgery without starting meds. Discussed above with Dr Burleson. Wishes to proceed Reviewed intubation notes from [facility] 2015- Grade 4 view with Jacqueline scope. Intubated with Video laryngoscopy. 'Slight bleeding' noted on video laryngoscopy PMFSH Past Medical History Medical History Aphasia [place] (hard of hearing) Family history of sickle cell disease GERD (gastroesophageal reflux disease) Nasopharyngeal mass CVA (cerebral vascular accident) Cerebral aneurysm HTN (hypertension) Seasonal allergies Hyperlipidemia Diabetes Family History Family History Father Cerebral aneurysm Mother Diabetes Family history of problems with anesthesia: No Surgical History Surgical History Hx of cardiac cath Hx of left cataract extraction H/O colonoscopy Hx of neck surgery History of carotid endarterectomy History of surgery for cerebral aneurysm History of carpal tunnel release History of Problems with Anesthesia: Yes Social History Social History Are you a primary respite care provider to a significant other at home: No Do you presently have visiting nurse or other home services: No Alcohol intake: never Patient Tobacco Use Status: Former Tobacco user Tobacco use type: Cigarette Years Smoked: 4 Meds Allergies Allergy/AdvReac Type Severity Reaction Status Date / Time No Known Allergies Allergy Verified 11/12/24 10:04 Home Medications ?Medication ?Instructions ?Recorded ?Confirmed ?Last Taken ?Type loratadine 10 mg tablet 10 mg PO QAM 03/23/23 11/12/24 Unknown History metformin 500 mg tablet,extended 500 mg PO BID 03/23/23 11/12/24 Unknown History release 24 hr omeprazole 20 mg capsule,delayed 20 mg PO QAM 03/23/23 11/12/24 11/12/24 History release pravastatin 40 mg tablet 40 mg PO BEDTIME 03/23/23 11/12/24 Unknown History aspirin 81 mg tablet,delayed 81 mg PO QAM 10/15/24 11/12/24 Unknown History release Assessment and Plan Assessment Anesthesia Assessment: Anesthesia Plan Discussed and Chart Reviewed Final Anesthetic Review Family History of Problems with Anesthesia: No History of Problems with Anesthesia: Yes NPO: Yes ASA Class: IV Final Preanesthetic Review: No Changes in Pt Med Stat, Meds/Allgs Chart Reviewed, Consent Obtained/Reviewed and Anes Risks/Benef Reviewed Patient Risk: High Procedure Risk: Intermediate Assessment/Block/Sedation in SS: Assess/Block/Sedation-SS Anesthetic Plan Anesthetic Plan: GA and Other (Video laryngoscopy for intubation, arterial line, ICU post op) Disposition: Standard PACU and Inp. Admit - ICU
[2024-10-15 11:54] LABS: Hematocrit 35.3 % (42.0-52.0); Mean Corpuscular HGB Conc 31.2 g/dl (31.0-36.0); Mean Corpuscular Hemoglobin 28.1 pg (27.0-33.0); Mean Corpuscular Volume 90.1 fL (80.0-98.0); Platelet Count 310 X10*3/uL (160-400); Red Blood Count 3.92 X10*6/uL (4.60-5.80); Red Cell Distribution Width 14.9 % (11.0-16.0); White Blood Count 4.1 X10*3/uL (4.8-10.8)
[2024-10-15 12:01] LABS: Prothrombin Time 11.5 SEC (10.9-12.4)
[2024-10-15 12:05] LABS: Partial Thromboplastin Time 33.6 SEC (26.0-36.8)
[2024-10-15 12:30] LABS: Anion Gap 9 (12-20); Blood Urea Nitrogen 10 mg/dL (9-16); Calcium 9.9 mg/dL (8.4-10.2); Carbon Dioxide 32 mmol/L (22-29); Chloride 103 mmol/L (96-108); Creatinine Clr Calc Pharmacy 74.5; Estimated Glomerular Filt Rate > 60; Glucose Random 84 mg/dL (60-115); Potassium 4.3 mmol/L (3.3-5.1); Sodium 140 mmol/L (135-145)
--- NOTE | 2024-11-12 07:39 | MHC.SHP ---
Pre-Procedural Eval Section A - 24 Hr Update-Section A only Date of Service: 11/12/24 The patient is an INPATIENT: No Changes since office visit: Yes Patient answered all questions The patient has been examined within 24 hours of the surgical procedure. The History & Physical has been completed within 30 days and I have reviewed it.: Yes Section B - Complete if H&P > 30 days Chief Complaint: Occlusion and stenosis of right carotid artery Allergies: Allergies Allergy/AdvReac Type Severity Reaction Status Date / Time No Known Allergies Allergy Verified 09/06/24 10:02 Plan I have reviewed the history and physical and performed a pertinent physical examination on my patient. No changes have occurred unless specified. Time Spent With Patient Time: Total time managing care of this patient today ____ minutes.
[2024-11-12 10:20] VITALS: BP 147/75; PULSE 83; RESP 16; TEMP 36.8; O2SAT 99
[2024-11-12 10:23] LABS: Hematocrit 34.9 % (42.0-52.0); Hemoglobin 11.2 g/dl (14.0-18.0); Mean Corpuscular HGB Conc 32.1 g/dl (31.0-36.0); Mean Corpuscular Hemoglobin 28.3 pg (27.0-33.0); Mean Corpuscular Volume 88.1 fL (80.0-98.0); Mean Platelet Volume 9.9 fL (9.4-12.4); Platelet Count 326 X10*3/uL (160-400); Red Blood Count 3.96 X10*6/uL (4.60-5.80); Red Cell Distribution Width 14.6 % (11.0-16.0); White Blood Count 4.3 X10*3/uL (4.8-10.8)
[2024-11-12 10:32] LABS: Prothrombin Time 11.7 SEC (10.9-12.4)
[2024-11-12 10:35] LABS: Partial Thromboplastin Time 36.2 SEC (26.0-36.8)
[2024-11-12] MEDS: Lactated Ringers 1,000 ML 100 ML IVCONT (10:36)
[2024-11-12 10:39] LABS: Anion Gap 14 (12-20); Blood Urea Nitrogen 14 mg/dL (9-16); Calcium 9.2 mg/dL (8.4-10.2); Carbon Dioxide 30 mmol/L (22-29); Chloride 101 mmol/L (96-108); Creatinine Clr Calc Pharmacy 67.2; Estimated Glomerular Filt Rate > 60; Glucose Random 96 mg/dL (60-115); Sodium 141 mmol/L (135-145)
--- OUTSIDE RECORDS SUMMARY | 2024-11-12 11:25 | XMS_ITS | Patient Health Record ---
Author Organization [facility] Address [address] [place] [address] Care Team Providers Care Staff Electronic Warfare Officer Name Role Phone NATIVIDAD CANTRELL Primary Care Provider [phone] Allergies No Known Allergies Reason For Referral Reason THYRIOD NODULE BIOPS Y Diagnosis 1 Nontoxic single thyr oid nodule (E04.1) Referral Organization [facility] Referring Provider First Name HENSON Referring Provider Last Name [facility] Referring Provider Speciality Internal edicine Referred Provider Specialty Intervention al Radiology General Notes See 12/20/23 encounter ., Sanjuanita Higgins 01/24/2024 11:58:44 AM > Referral Priority Routine Reason DM T 2 Referral Organization [facility] Referring Provider First Name HENSON Referring Provider Last Name GU Referring Provider Speciality Internal edicine Referred Provider Specialty Ophthalmolog y Referral Priority Routine Reason DM T 2 FOOT EXAM Referral Organization [facility] Referring Provider First Name HENSON Referring Provider Last Name GU Referring Provider Speciality Internal edicine Referred Provider Specialty Podiatry Referral Priority Routine Medications Medication SIG (Take, Route, Frequency, Duration) Notes Start Date End Date Status amLODIPine Besylate 2.5 MG 1 tablet Oral ly Once a day for 90 days Active Valsartan 160 MG TAKE 1 TABLET BY CHRISTEL TH EVERY DAY FOR 30 DAYS for 90 days Active Pravastatin Sodium 40 MG TAKE 1 TABLET B Y MOUTH EVERY DAY FOR 30 DAYS for 90 days Active Omeprazole 20 MG TAKE 1 CAPSULE BY MO UTH EVERY DAY 30 MINUTES BEFORE BREAKFAST for 90 Active metFORMIN HCl ER 500 MG 1 tablet with ev ening meal Orally twice a day for 90 days Active one touch verio test strips Active one touch verio test strips - test blood sugars 3 times daily dx: E11.9 ones a week for 30 days 04/12/2022 Active Loratadine 10 MG TAKE 1 TABLET BY CHRISTEL TH EVERY DAY for 90 Active one touch [...] a day for 7 days 03/03/2023 Active Immunizations Vaccine Route Administration Date Status Comme nts COVID Moderna Unknown 11/20/2020 Administered COVID Moderna Unknown 12/18/2020 Administered Pneumococcal polysaccharide PPV23 Unknown 03/26/2014 Ad ministered Tdap Unknown 03/26/2014 Administered Social History Tobacco Use: Social History Observation [...] ast year? No Points 0 Interpretation Negative Problems Problem Type SNOMED Code ICD Code Onset Dates Problem Status W/U Status Risk Notes Problem Non-toxic single thyroid nodule (239184314) Nontoxic single thyroid nodule (E04.1) Active confirmed Problem Disorder due to type 2 diabetes mellitus (612463073) Type 2 diabetes mellitus with unspecified complications (E11.8) Active confirmed Problem Mixed hyperlipidemia (315968030) Mixed hyperlipidemia (E78.2) Active confirmed Problem Right carotid artery stenosis (704711091071157) Occlusion and stenosis of right carotid artery (I65.21) Active confirmed Problem Intracranial aneurysm (disorder) (160845102) Cerebral aneurysm, nonruptured (I67.1) Active confirmed Problem Seasonal allergic rhinitis (803748179) Other seasonal allergic rhinitis (J30.2) Active confirmed Problem Gastro-esophageal reflux disease without esophagitis (249601165) Gastro-esophageal reflux disease without esophagitis (K21.9) Active confirmed Problem Essential hypertension (08123531) Essential (primary) hypertension (I10) Active confirmed Vital Signs Heart Rate 90 /min 08/07/2024 Temperature 97.1 degrees Fahrenheit 08/07/2024 Blood pressure diastolic 70 mm Hg 08/07/2024 Oximetry 98 % 08/07/2024 Height 67 in 08/07/2024 Blood pressure systolic 114 mm Hg 08/07/2024 Weight 132.4 lbs 08/07/2024 BMI 20.73 kg/m2 08/07/2024 Encounters Encounter Location Date Provider Diagnosis [address] [place] [address] 01/23/2024 NATIVIDAD CANTRELL Type 2 diabetes linnea itus with unspecified complications E11.8 ; Essential (primary) hypertension I10 ; Mixed hyperlipidemia E78.2 ; Gastro-esophageal reflux disease without esophagitis K21.9 ; Encounter for screening for malignant neoplasm of prostate Z12.5 and Nontoxic single thyroid nodule E04.[address] [place] [address] 08/07/2024 NATIVIDAD CANTRELL Type 2 diabetes linnea itus with unspecified complications E11.8 ; Annual physical exam Z00.00 ; Essential (primary) hypertension I10 ; Mixed hyperlipidemia E78.2 ; Gastro-esophageal reflux disease without esophagitis K21.9 ; Encounter for screening for malignant neoplasm of prostate Z12.5 and Nontoxic single thyroid nodule E04.[address] [place] [address] 11/17/2023 NATIVIDAD CANTRELL Nontoxic single thyr oid nodule E04.[address] [place] [address] 12/20/2023 NATIVIDAD CANTRELL Disorder of thyroid, unspecified E07.[address] [place] [address] 09/26/2024 NATIVIDAD CANTRELL Assessments Encounter Date Diagnosis (ICD Code) Assessment Notes Treatment Notes Treatment Clinical Notes Section Notes 01/23/2024 Type 2 diabetes mellitus with unspecified complications (ICD-10 - E11.8) Mr. Torres is a 68-year-old gentleman with type 2 diabetes mellitus, GERD, hypertension, hyperlipidemia, hearing loss and uses hearing aids, seasonal allergies and cerebral aneurysm here for follow up. Plan is as follows: Type II diabetes mellitus. He checks his blood sugars at home and denies any hypoglycemic or hyperglycemic episodes. He is on right medications. He has seen his mileage clerk in the past 1 year. Foot care [...] this note under HIPAA compliance and under [place] law mandated for scribe services. Patient aware of service. Verbal consent and written consent taken from the patient. Patient understands and verbalizes understanding of the scribes services and all questions answered regarding scribes services. Patient agrees to use of scribes services. 11/17/2023 Nontoxic single thyroid nodule (ICD-10 - E04.1) 12/20/2023 Disorder of thyroid, unspecified (ICD-10 - E07.9) 01/23/2024 Essential (primary) hypertension (ICD-10 - I10) Mr. Torres is a 68-year-old gentleman with type 2 diabetes mellitus, GERD, hypertension, hyperlipidemia, hearing loss and uses hearing aids, seasonal allergies and cerebral aneurysm here for follow up. Plan is as follows: Type II diabetes mellitus. He checks his blood sugars at home and denies any hypoglycemic or hyperglycemic episodes. He is on right medications. He has seen his mileage clerk in the past 1 year. Foot care [...] this note under HIPAA compliance and under [place] law mandated for scribe services. Patient aware of service. Verbal consent and written consent taken from the patient. Patient understands and verbalizes understanding of the scribes services and all questions answered regarding scribes services. Patient agrees to use of scribes services. 08/07/2024 Type 2 diabetes mellitus with unspecified complications (ICD-10 - E11.8) Mr. Torres is a 68-year-old gentleman with type 2 diabetes mellitus, GERD, hypertension, hyperlipidemia, hearing loss and uses hearing aids, seasonal allergies and cerebral aneurysm here for follow up. Plan is as follows: Type II diabetes mellitus. He checks his blood sugars at home and denies any hypoglycemic or hyperglycemic episodes. He is on right medications. He has seen his mileage clerk in the past 1 year. Foot care discussed. Check A1c.referred to mileage clerk and podiatry EKG is normal sinus rhythm [...] Annual physical exam (ICD-10 - Z00.00) Mr. Torres is a 68-year-old gentleman with type 2 diabetes mellitus, GERD, hypertension, hyperlipidemia, hearing loss and uses hearing aids, seasonal allergies and cerebral aneurysm here for follow up. Plan is as follows: Type II diabetes mellitus. He checks his blood sugars at home and denies any hypoglycemic or hyperglycemic episodes. He is on right medications. He has seen his mileage clerk in the past 1 year. Foot care discussed. Check A1c.referred to mileage clerk and podiatry EKG is normal sinus rhythm [...] Essential (primary) hypertension (ICD-10 - I10) Mr. Torres is a 68-year-old gentleman with type 2 diabetes mellitus, GERD, hypertension, hyperlipidemia, hearing loss and uses hearing aids, seasonal allergies and cerebral aneurysm here for follow up. Plan is as follows: Type II diabetes mellitus. He checks his blood sugars at home and denies any hypoglycemic or hyperglycemic episodes. He is on right medications. He has seen his mileage clerk in the past 1 year. Foot care discussed. Check A1c.referred to mileage clerk and podiatry EKG is normal sinus rhythm [...] appointment. General health concerns discussed with patient. 01/23/2024 Mixed hyperlipidemia (ICD-10 - E78.2) Mr. Torres is a 68-year-old gentleman with type 2 diabetes mellitus, GERD, hypertension, hyperlipidemia, hearing loss and uses hearing aids, seasonal allergies and cerebral aneurysm here for follow up. Plan is as follows: Type II diabetes mellitus. He checks his blood sugars at home and denies any hypoglycemic or hyperglycemic episodes. He is on right medications. He has seen his mileage clerk in the past 1 year. Foot care [...] this note under HIPAA compliance and under [place] law mandated for scribe services. Patient aware of service. Verbal consent and written consent taken from the patient. Patient understands and verbalizes understanding of the scribes services and all questions answered regarding scribes services. Patient agrees to use of scribes services. 01/23/2024 Gastro-esophageal reflux disease without esophagitis (ICD-10 - K21.9) Mr. Torres is a 68-year-old gentleman with type 2 diabetes mellitus, GERD, hypertension, hyperlipidemia, hearing loss and uses hearing aids, seasonal allergies and cerebral aneurysm here for follow up. Plan is as follows: Type II diabetes mellitus. He checks his blood sugars at home and denies any hypoglycemic or hyperglycemic episodes. He is on right medications. He has seen his mileage clerk in the past 1 year. Foot care [...] this note under HIPAA compliance and under [place] law mandated for scribe services. Patient aware of service. Verbal consent and written consent taken from the patient. Patient understands and verbalizes understanding of the scribes services and all questions answered regarding scribes services. Patient agrees to use of scribes services. 08/07/2024 Mixed hyperlipidemia (ICD-10 - E78.2) Mr. Torres is a 68-year-old gentleman with type 2 diabetes mellitus, GERD, hypertension, hyperlipidemia, hearing loss and uses hearing aids, seasonal allergies and cerebral aneurysm here for follow up. Plan is as follows: Type II diabetes mellitus. He checks his blood sugars at home and denies any hypoglycemic or hyperglycemic episodes. He is on right medications. He has seen his mileage clerk in the past 1 year. Foot care discussed. Check A1c.referred to mileage clerk and podiatry EKG is normal sinus rhythm [...] disease without esophagitis (ICD-10 - K21.9) Mr. Torres is a 68-year-old gentleman with type 2 diabetes mellitus, GERD, hypertension, hyperlipidemia, hearing loss and uses hearing aids, seasonal allergies and cerebral aneurysm here for follow up. Plan is as follows: Type II diabetes mellitus. He checks his blood sugars at home and denies any hypoglycemic or hyperglycemic episodes. He is on right medications. He has seen his mileage clerk in the past 1 year. Foot care discussed. Check A1c.referred to mileage clerk and podiatry EKG is normal sinus rhythm [...] neoplasm of prostate (ICD-10 - Z12.5) Mr. Torres is a 68-year-old gentleman with type 2 diabetes mellitus, GERD, hypertension, hyperlipidemia, hearing loss and uses hearing aids, seasonal allergies and cerebral aneurysm here for follow up. Plan is as follows: Type II diabetes mellitus. He checks his blood sugars at home and denies any hypoglycemic or hyperglycemic episodes. He is on right medications. He has seen his mileage clerk in the past 1 year. Foot care discussed. Check A1c.referred to mileage clerk and podiatry EKG is normal sinus rhythm [...] his healthcare proxy is his sister Elvia. BRITTNIST form given Screening blood work before next appointment. General health concerns discussed with patient. 01/23/2024 Encounter for screening for malignant neoplasm of prostate (ICD-10 - Z12.5) Mr. Torres is a 68-year-old gentleman with type 2 diabetes mellitus, GERD, hypertension, hyperlipidemia, hearing loss and uses hearing aids, seasonal allergies and cerebral aneurysm here for follow up. Plan is as follows: Type II diabetes mellitus. He checks his blood sugars at home and denies any hypoglycemic or hyperglycemic episodes. He is on right medications. He has seen his mileage clerk in the past 1 year. Foot care [...] this note under HIPAA compliance and under [place] law mandated for scribe services. Patient aware of service. Verbal consent and written consent taken from the patient. Patient understands and verbalizes understanding of the scribes services and all questions answered regarding scribes services. Patient agrees to use of scribes services. 08/07/2024 Nontoxic single thyroid nodule (ICD-10 - E04.1) Mr. Torres is a 68-year-old gentleman with type 2 diabetes mellitus, GERD, hypertension, hyperlipidemia, hearing loss and uses hearing aids, seasonal allergies and cerebral aneurysm here for follow up. Plan is as follows: Type II diabetes mellitus. He checks his blood sugars at home and denies any hypoglycemic or hyperglycemic episodes. He is on right medications. He has seen his mileage clerk in the past 1 year. Foot care discussed. Check A1c.referred to mileage clerk and podiatry EKG is normal sinus rhythm [...] his healthcare proxy is his sister Elvia. BRITTNIST form given Screening blood work before next appointment. General health concerns discussed with patient. 01/23/2024 Nontoxic single thyroid nodule (ICD-10 - E04.1) Mr. Torres is a 68-year-old gentleman with type 2 diabetes mellitus, GERD, hypertension, hyperlipidemia, hearing loss and uses hearing aids, seasonal allergies and cerebral aneurysm here for follow up. Plan is as follows: Type II diabetes mellitus. He checks his blood sugars at home and denies any hypoglycemic or hyperglycemic episodes. He is on right medications. He has seen his mileage clerk in the past 1 year. Foot care [...] this note under HIPAA compliance and under [place] law mandated for scribe services. Patient aware of service. Verbal consent and written consent taken from the patient. Patient understands and verbalizes understanding of the scribes services and all questions answered regarding scribes services. Patient agrees to use of scribes services. Plan Of Treatment Pending Test Test Name Order Date Carotid Ultrasound 07/25/2023 COMPREHENSIVE METABOLIC PANEL 04/12/2022 HEMOGLOBIN A1C WITH EST GLUCOSE 04/12/20 22 LIPID PANEL 04/12/2022 MICROALBUMIN, URINE 04/12/2022 US Thyroid 11/17/2023 Ultrasound: Needle Biopsy Thyroid-Rad Future Test Test Name Order Date Hemoglobin [id number] 08/07/2024 Albumin/Creatinine Ratio,Urine-[id number] Lipid Panel-[id number] 08/07/2024 Comp. Metabolic Panel [id number] 2023 PSA (Serial Monitor)-[id number] 08/07/2024 Next Appt Details Provider Name:Helen Coepauline dailey, 02/05/2025 11:00:00 AM, [address] [place] [address], [phone], Insurance Providers Payer Name Payer Address Payer Phone Subscriber Number Group Number Insured Name Patient Relationship to Insured Coverage Start Date Coverage End Date [facility] [address] [address] [place] [phone] [id number] Ángel Torres Self - patient is the insured [employer] [address] [place] [address] [id number] Ángel Torres Self - patient is the insured Medical (General) History Medical History History ICD Code Type 2 diabetes mellitus GERD Hyperlipidemia Seasonal allergies Cerebral aneurysm, saw a neurologist in [place] Hypertension use hearing aids Surgical History Surgery Date(Month/Year) cerebral aneurysm surgery left-sided carotid endarterectomy cyst removal 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 Aleman, [facility] 10/2022 Hospitalization History Reason Date(Month/Year) surgeries
--- OUTSIDE RECORDS SUMMARY | 2024-11-12 11:25 | XMS_ITS ---
Author Organization [facility] Address [address] [place] [address] Care Team Providers Care Product Director Name Role Phone NATIVIDAD CANTRELL Primary Care Provider REASON FOR VISIT Refills Encounters Encounter Location Date Provider Diagnosis [facility] [address] [address] 09/26/2024 NATIVIDAD CANTRELL Plan Of Treatment Next Appt Details Provider Name:Helen dailey, 02/05/2025 11:00:00 AM, [address] [place] [address], [place], [address], Progress Notes * Ángel TORRESDOB: [birth year] (69 yo M)Acc No.[id number]:09/26/2024 Patient:?BRIANÁngel :1955???Age:69 Y???Sex:Male Address:[address] [place] [phone] * true * Date:? Generated for Patyi yariel/Linnette/eTransmitting on:?11/12/2024 11:25 AM EDT
--- OUTSIDE RECORDS SUMMARY | 2024-11-12 11:25 | XMS_ITS ---
Author Organization [facility] Address [address] [place] [address] Care Team Providers Care Data Processing Auditor Name Role Phone NATIVIDAD CANTRELL Primary Care Provider Allergies No Known Allergies Reason For Referral Reason THYRIOD NODULE BIOPS Y Diagnosis 1 Nontoxic single thyr oid nodule (E04.1) Referral Organization [facility] Referring Provider First Name [...] 20 MG TAKE 1 CAPSULE BY MO [facility] EVERY DAY 30 MINUTES BEFORE BREAKFAST for [...] 01/23/2024 Encounters Encounter Location Date Provider Diagnosis [facility] [address] [address] 01/23/2024 NATIVIDAD CANTRELL Type 2 diabetes linnea [...] on right medications. He has seen his diesel tractor engine mechanic in the past 1 year. Foot care [...] this note under HIPAA compliance and under [place] law mandated for scribe services. Patient aware [...] on right medications. He has seen his diesel tractor engine mechanic in the past 1 year. Foot care [...] this note under HIPAA compliance and under [place] law mandated for scribe services. Patient aware [...] on right medications. He has seen his diesel tractor engine mechanic in the past 1 year. Foot care [...] this note under HIPAA compliance and under [place] law mandated for scribe services. Patient aware [...] on right medications. He has seen his diesel tractor engine mechanic in the past 1 year. Foot care [...] this note under HIPAA compliance and under [place] law mandated for scribe services. Patient aware [...] on right medications. He has seen his diesel tractor engine mechanic in the past 1 year. Foot care [...] this note under HIPAA compliance and under [place] law mandated for scribe services. Patient aware [...] on right medications. He has seen his diesel tractor engine mechanic in the past 1 year. Foot care [...] this note under HIPAA compliance and under [place] law mandated for scribe services. Patient aware [...] Reason: Provider Name:Helen dailey, 02/05/2025 11:00:00 AM, [address] [place] [address], [phone], Progress Notes * Ángel JARAMILLODOB: [birth year] (68 yo M)Acc No.[id number]:01/23/2024 Progress Notes Patient:?Ángel JARAMILLO Provider:?NATIVIDAD CANTRELL MD :1955???Age:68 Y???Sex:Male Rishi e:01/23/2024 Address:[address] [place] [address], [address] Subjective: * Chief Complaints: * ???8 [...] age 11 left cataract surgery, Dr. Aleman, [facility] 10/2022 * Hospitalization/Major Diagno stic Procedure:?surgeries [...] Ht: 67 in. 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 No motor or sensory [...] on right medications. He has seen his diesel tractor engine mechanic in the past 1 year. Foot care [...] this note under HIPAA compliance and under [place] law mandated for scribe services. Patient aware of service. Verbal consent and written consent taken from the patient. Patient understands and verbalizes understanding of the scribes services and all questions answered regarding scribes services. Patient agrees to use of scribes services. Plan: * Treatment: 2.?Essential (primary) hyper tension?LAB: Albumin/Creatinine Ratio,Urine-[id number] (Ordered for 01/23/2024) ?LAB: Comp. Metabolic Panel [id number] (Ordered for 01/23/2024) ?LAB: Lipid Panel-[id number] (Ordered for 01/23/2024) 3.?Encounter for screening f or malignant neoplasm of prostate?LAB: PSA (Serial Monitor)-[id number] (Ordered for 01/23/2024) 4.?Others? Referral To:Interventional Radiology ?Reason:THYRIOD NODULE BIOPSY * Procedure Codes:? * Follow Up:?AW * Images: * Sign off status: Completed true * Provider:?NATIVIDAD CANTRELL MD Date:?01/22 Generated for Patyi yariel/Linnette/eTransmitting on:?11/12/2024 11:25 AM EDT History and Physical Notes * HPI (History [...] bruit right side Psychiatry Normal Musculoskeletal Normal GENERAL CAR YARD SUPERVISOR Alert and Oriented x 3. No motor or sensory deficit ENT Normal CVS S1 and S2 Audible. R egular Rhythm Resp Normal GI Normal Urology/Reproductive System Normal Consultation Request Notes Referral Date Referring Provider Referred Provider Not 01/23/2024 NATIVIDAD CANTRELL THYRIOD NODULE BIOPSY
--- OUTSIDE RECORDS SUMMARY | 2024-11-12 11:25 | XMS_ITS ---
Author Organization [facility] Address [address] [place] [address] Care Team Providers Care Presser Cotton Ginning Name Role Phone NATIVIDAD CANTRELL Primary Care Provider Allergies No Known Allergies Reason For Referral Reason DM T 2 Referral Organization [facility] Referring Provider First Name NATIVIDAD Referring Provider Last Name GUL Referring Provider Speciality Internal M edicine Referred Provider Specialty Ophthalmolog y Referral Priority Routine Reason DM T 2 FOOT EXAM Referral Organization [facility] Referring Provider First Name NATIVIDAD Referring Provider Last Name IGYG Referring Provider Speciality Internal M edicine Referred [...] 20 MG TAKE 1 CAPSULE BY MO [facility] [[email or web address] EVERY DAY 30 MINUTES BEFORE BREAKFAST for [...] 08/07/2024 Encounters Encounter Location Date Provider Diagnosis [facility] [address] [place] [address] 08/07/2024 NATIVIDAD CANTRELL Type 2 diabetes linnea [...] on right medications. He has seen his php architect in the past 1 year. Foot care discussed. Check A1c.referred to php architect and podiatry EKG is normal sinus rhythm [...] Annual physical exam (ICD-10 - Z00.00) Mr. Jaramillo is a 68-year-old gentleman with type 2 diabetes mellitus, GERD, hypertension, hyperlipidemia, hearing loss and uses hearing aids, seasonal allergies and cerebral aneurysm here for follow up. Plan is as follows: Type II diabetes mellitus. He checks his blood sugars at home and denies any hypoglycemic or hyperglycemic episodes. He is on right medications. He has seen his php architect in the past 1 year. Foot care discussed. Check A1c.referred to php architect and podiatry EKG is normal sinus rhythm [...] on right medications. He has seen his php architect in the past 1 year. Foot care discussed. Check A1c.referred to php architect and podiatry EKG is normal sinus rhythm [...] on right medications. He has seen his php architect in the past 1 year. Foot care discussed. Check A1c.referred to php architect and podiatry EKG is normal sinus rhythm [...] on right medications. He has seen his php architect in the past 1 year. Foot care discussed. Check A1c.referred to php architect and podiatry EKG is normal sinus rhythm [...] on right medications. He has seen his php architect in the past 1 year. Foot care discussed. Check A1c.referred to php architect and podiatry EKG is normal sinus rhythm [...] on right medications. He has seen his php architect in the past 1 year. Foot care discussed. Check A1c.referred to php architect and podiatry EKG is normal sinus rhythm [...] Future Test Test Name Order Date Hemoglobin Q6c-[id number] 08/07/2024 Albumin/Creatinine Ratio,Urine-[id number] Lipid Panel-[id number] 08/07/2024 Comp. Metabolic Panel [id number] 2023 PSA (Serial Monitor)-[id number] 08/07/2024 Referrals Referral Date Details 08/07/2024 08/07/2024, DM T 2 08/07/2024 08/07/2024, DM T 2 F OOT EXAM Next Appt Details Follow Up: 6 Months, Reason: Provider Name:Helen dailey 02/05/2025 11:00:00 AM, [address] [address], [place], [address], Progress Notes * Ángel JARAMILLODOB: (69 yo M)Acc No.[id number]:08/07/2024 Progress Note Patient:?Ángel JARAMILLO Provider:?NATIVIDAD CANTRELL MD :1955???Age:69 Y???Sex:Male Rishi e:08/07/2024 Address:[address] [place], [place] [id number] Subjective: * Chief Complaints: * ???Medicare Wellness [...] age 11 left cataract surgery, Dr. Aleman, [facility] 10/2022 * Hospitalization/Major Diagno stic Procedure:? * [...] Ht: 67 in. * Examination: ???General Examination: ?OFFICE AIDE?Alert and Oriented x3. No motor or sensory [...] on right medications. He has seen his php architect in the past 1 year. Foot care discussed. Check A1c.referred to php architect and podiatry EKG is normal sinus rhythm [...] * Labs:? * ?Lab: PSA (Serial Monito r)-[id number] (Ordered for 08/07/2024) * Procedure Codes:?G0439 ANNUA L WELLNESS VST; PPS SUBSQT [id number] SYST BP LT 130 MM [id number] DIAST BP < 80 MM [id number] ELECTROCARDIOGRAM, [id number] ANNUAL DEPRESSION SCREENING 15 [id number] ANNUAL ALCOHOL MISUSE SCREEN 15 [id number] BODY MASS INDEX [id number] Pt scrn tbco id as non [id number] ADVNC CARE PLAN IN RCRD * Preventive [...] BMD NO? COLONOSCOPY UNKNOWN DATE? EYE EXAM [facility] 2022 This plan was discussed, printed, and handed to patient. * Follow Up:?6 Months * * Sign off status: Completed true * Provider:?NATIVIDAD CANTRELL MD Date:?08/07 Generated for Kaushik saldivar/Linnette/Em on:?11/12/2024 11:25 AM EDT History and Physical [...] bruit right side Psychiatry Normal Musculoskeletal Normal OFFICE AIDE Alert and Oriented x 3. No motor [...]
[2024-11-12 12:24] VITALS: BP 115/77; PULSE 91; RESP 16; TEMP 36.4; O2SAT 95
[2024-11-12 12:39] VITALS: BP 114/69; PULSE 81; RESP 16; O2SAT 94
[2024-11-12 12:55] VITALS: BP 111/63; PULSE 65; RESP 16; O2SAT 98
[2024-11-12 13:10] VITALS: BP 102/63; PULSE 61; RESP 16; O2SAT 98
[2024-11-12 13:25] VITALS: BP 113/70; PULSE 79; RESP 16; TEMP 36.9; O2SAT 99
--- NOTE | 2024-11-20 10:23 | W.PM.OPN ---
Operative Note Operative Note Date of Service: 11/12/24 Narrative: Patient with high-grade carotid stenosis. Anesthesia was unable to intubate. Operation canceled
== END 2024-11-12 10:35 | disposition home or self-care (01) ==
LOC: HO.SSSA 14:11 → HO.SSS 15:07
PROVIDERS: Nurse Practitioner; PCP Hospitalist; Visit Provider Surgery Vascular Surgery
PROC: (CPT 35301; principal; 2024-11-12 11:00)
DX: I65.21 Occlusion and stenosis of right carotid artery (principal); T88.4XXA Failed or difficult intubation, initial encounter; Z53.8 Procedure and treatment not carried out for other reasons; K91.62 Intraoperative hemorrhage and hematoma of a digestive system organ or structure complicating other procedure; Y83.8 Other surgical procedures as the cause of abnormal reaction of the patient, or of later complication, without mention of misadventure at the time of the procedure; Y92.234 Operating room of hospital as the place of occurrence of the external cause; I42.9 Cardiomyopathy, unspecified; I10 Essential (primary) hypertension; E78.5 Hyperlipidemia, unspecified; E11.9 Type 2 diabetes mellitus without complications; R47.01 Aphasia; J30.2 Other seasonal allergic rhinitis; Z86.73 Personal history of transient ischemic attack (TIA), and cerebral infarction without residual deficits; Z79.82 Long term (current) use of aspirin; Z79.84 Long term (current) use of oral hypoglycemic drugs; Z79.899 Other long term (current) drug therapy; Z87.891 Personal history of nicotine dependence; Z98.890 Other specified postprocedural states
CPT/HCPCS: 37246; 31525; 36415; 80048; 85027; 85610; 85730; 86850; 86900; 86901; A4649; J0330; J0690; J1100; J1644; J1805; J2003; J2250; J2371; J2405; J2795; J3010

== ENCOUNTER 2024-11-29 10:15 | Outpatient (AMB) | payer MEDICARE, SELFPAY ==
[2024-11-29 10:17] VITALS: BP 108/60; PULSE 63; O2SAT 100; BMI 19.3
--- NOTE | 2024-11-29 10:17 | MHC.OFFVIS ---
Vital Signs 11/29/24 10:17 Height 5 ft 9 in Weight 131 lb BMI 19.3 BP 108/60 Blood Pressure Location Lt brachial Position Sitting Pulse 63 Pulse Source Pulse Oximeter Pulse Oximetry (%) 100 Oxygen Delivery Method Room Air Intake Visit Reasons: Follow up Cerebral Aneurysm-LVM Intake Note: Patient presents for follow up MRA done 06/02/24 and US carotid on 05/24/24 Allergies No Known Allergies Allergy (Verified 11/29/24 10:21) HPI Comments Details: 69y/o male comes for f/u of cerebral aneurysm.No new neurological symptoms He is seeing vascular surgeon in [place] for carotid surgery. History-He has family h/o cerebral aneurysms. His father and his older brother have cerebral aneurysms. His brother had a ruptured aneurysm 10-15 years ago and the patient was also evaluated though he was asymptomatic. He was found to have 2 aneurysms and had 1 clipped. MRA showed a 3.5 mm aneurysm in dorsal supraclinoid left ICA mildly enlarged since his imaging in 2014 . Pt had a MRA of neck done. The MRA of neck result was Left ICA stenosis 40% and there is severe stenosis of distal right common carotid artery. Stenosis of the proximal right ICA is estimated at 60%. There is a dominant thyroid nodule measuring 23 mm involving the the left lobe and isthmus of the thyroid gland. He denies headaches, memory issues, double vision, dysarthria, dysphagia, weakness or numbness, loss of vision etc. 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 He also reports a mini stroke during left carotid endarterectomy . [facility] Medical History Aphasia [place] (hard of hearing) Family history of sickle cell disease GERD (gastroesophageal reflux disease) Nasopharyngeal mass CVA (cerebral vascular accident) Cerebral aneurysm HTN (hypertension) Seasonal allergies Hyperlipidemia Diabetes Surgical History Hx of cardiac cath Hx of left cataract extraction H/O colonoscopy Hx of neck surgery History of carotid endarterectomy History of surgery for cerebral aneurysm History of carpal tunnel release Family History Father Cerebral aneurysm Mother Diabetes Social History Are you a primary physician assistant primary care to a significant other at home: No Do you presently have visiting nurse or other home services: No Alcohol intake: never Patient Tobacco Use Status: Former Tobacco user Tobacco use type: Cigarette Years Smoked: 4 Physical Exam Vital Signs: Last Vital Signs Pulse 63 11/29/24 10:17 BP 108/60 11/29/24 10:17 Pulse Ox 100 11/29/24 10:17 Oxygen Delivery Method Room Air 11/29/24 10:17 BMI result Body Mass Index 19.3 Const Orientation/consciousness: patient oriented x3 Neuro Other: 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 Due to his surgery in his neck and throat he had mild difficulty protruding his tongue. speech- dyarthria General: patient oriented x3, gait normal, tone normal, moves all extremities and no focal motor deficits Cranial nerves: Yes Facial sensation intact/muscles of mastication intact and Yes Normal facial strength present Cognition (Neuro): normal cognition Gait exam (Neuro): Normal gait present Motor exam (neuro): 5/5 motor strength present throughout and Normal motor muscle tone present throughout Coordination: vwnfla-ej-ppol test normal Assessment & Plan Assessment & Plan (1) Cerebral aneurysm: Comment: w/surgery-has one other smaller aneurysm that is being followed Code(s): I67.1 - Cerebral aneurysm, nonruptured Category: Medical (2) History of carotid endarterectomy: Comment: ~ 2017-left Code(s): Z98.890 - Other specified postprocedural states Category: Surgical (3) Thyroid nodule: Code(s): E04.1 - Nontoxic single thyroid nodule Category: Medical Plan F/u with vascular surgeon Repeat MRA- no change since 2018 H/o nasaopharyngeal cancer - needs ENT reevaluation- PCP will refer Coding Level of Care Code Est Pt Level 4 (41096) Diagnoses Cerebral aneurysm I67.1 History of carotid endarterectomy Z98.890 Thyroid nodule E04.1
--- OUTSIDE RECORDS SUMMARY | 2024-11-29 12:08 | XMS_ITS | Patient Health Record ---
Author Organization [facility] Address [address] [place] [address] Care Team Providers Care Naval Aircrewman Helicopter Name Role Phone NATIVIDAD CANTRELL Primary Care Provider [phone] Allergies No Known Allergies Reason For Referral Reason THYRIOD NODULE BIOPS Y Diagnosis 1 Nontoxic single thyr oid nodule (E04.1) Referral Organization [facility] Referring Provider First Name HENSON Referring Provider Last Name [facility] Referring Provider Speciality Internal edicine Referred Provider Specialty Intervention al Radiology General Notes See 12/20/23 encounter ., Sanjuanita Higgins 01/24/2024 11:58:44 AM > Referral Priority Routine Reason DM T 2 Referral Organization [facility] Referring Provider First Name HENSON Referring Provider Last Name GU Referring Provider Speciality Internal edicine Referred Provider Specialty Ophthalmolog y Referral Priority Routine Reason DM T 2 FOOT EXAM Referral Organization [facility] Referring Provider First Name HENSON Referring [...] Risk Notes Problem Non-toxic single thyroid nodule (150257222) Nontoxic single thyroid nodule (E04.1) Active confirmed Problem Disorder due to type 2 diabetes mellitus (815796336) Type 2 diabetes mellitus with unspecified complications (E11.8) Active confirmed Problem Mixed hyperlipidemia (493445126) Mixed hyperlipidemia (E78.2) Active confirmed Problem Right carotid artery stenosis (574897723391757) Occlusion and stenosis of right carotid artery (I65.21) Active confirmed Problem Intracranial aneurysm (disorder) (946373985) Cerebral aneurysm, nonruptured (I67.1) Active confirmed Problem Seasonal allergic rhinitis (282935465) Other seasonal allergic rhinitis (J30.2) Active confirmed Problem Gastro-esophageal reflux disease without esophagitis (311517601) Gastro-esophageal reflux disease without esophagitis (K21.9) Active confirmed Problem Essential hypertension (57563998) Essential (primary) hypertension (I10) Active confirmed Vital Signs Heart Rate 90 /min 08/07/2024 Temperature 97.1 degrees Fahrenheit 08/07/2024 Blood pressure diastolic 70 mm Hg 08/07/2024 Oximetry 98 % 08/07/2024 Height 67 in 08/07/2024 Blood pressure systolic 114 mm Hg 08/07/2024 Weight 132.4 lbs 08/07/2024 BMI 20.73 kg/m2 08/07/2024 Encounters Encounter Location Date Provider Diagnosis [address] [place] [address] 01/23/2024 NATIVIDAD CANTRELL Type 2 diabetes linnea itus with unspecified complications E11.8 ; Essential (primary) hypertension I10 ; Mixed hyperlipidemia E78.2 ; Gastro-esophageal reflux disease without esophagitis K21.9 ; Encounter for screening for malignant neoplasm of prostate Z12.5 and Nontoxic single thyroid nodule E04.[address] [place] [address] 08/07/2024 NATIVIDAD CANTRELL Type 2 diabetes linnea itus with unspecified complications E11.8 ; Annual physical exam Z00.00 ; Essential (primary) hypertension I10 ; Mixed hyperlipidemia E78.2 ; Gastro-esophageal reflux disease without esophagitis K21.9 ; Encounter for screening for malignant neoplasm of prostate Z12.5 and Nontoxic single thyroid nodule E04.[address] [place] [address] 12/20/2023 NATIVIDAD CANTRELL Disorder of thyroid, unspecified E07.[address] [place] [address] 09/26/2024 NATIVIDAD CANTRELL Assessments Encounter Date Diagnosis [...] on right medications. He has seen his registered diet technician in the past 1 year. Foot care [...] Patient agrees to use of scribes services. 12/20/2023 Disorder of thyroid, unspecified (ICD-10 - [...] on right medications. He has seen his registered diet technician in the past 1 year. Foot care [...] on right medications. He has seen his registered diet technician in the past 1 year. Foot care discussed. Check A1c.referred to registered diet technician and podiatry EKG is normal sinus rhythm [...] on right medications. He has seen his registered diet technician in the past 1 year. Foot care discussed. Check A1c.referred to registered diet technician and podiatry EKG is normal sinus rhythm [...] on right medications. He has seen his registered diet technician in the past 1 year. Foot care discussed. Check A1c.referred to registered diet technician and podiatry EKG is normal sinus rhythm [...] on right medications. He has seen his registered diet technician in the past 1 year. Foot care [...] on right medications. He has seen his registered diet technician in the past 1 year. Foot care [...] on right medications. He has seen his registered diet technician in the past 1 year. Foot care discussed. Check A1c.referred to registered diet technician and podiatry EKG is normal sinus rhythm [...] on right medications. He has seen his registered diet technician in the past 1 year. Foot care discussed. Check A1c.referred to registered diet technician and podiatry EKG is normal sinus rhythm [...] on right medications. He has seen his registered diet technician in the past 1 year. Foot care discussed. Check A1c.referred to registered diet technician and podiatry EKG is normal sinus rhythm [...] on right medications. He has seen his registered diet technician in the past 1 year. Foot care [...] on right medications. He has seen his registered diet technician in the past 1 year. Foot care discussed. Check A1c.referred to registered diet technician and podiatry EKG is normal sinus rhythm [...] on right medications. He has seen his registered diet technician in the past 1 year. Foot care [...] 04/12/2022 HEMOGLOBIN A1C WITH EST GLUCOSE 04/12/20 LIPID PANEL 04/12/2022 MICROALBUMIN, URINE 04/12/2022 US Thyroid 11/17/2023 Ultrasound: Needle Biopsy Thyroid-Rad Future Test Test Name Order Date Hemoglobin V1h-192800 08/07/2024 Albumin/Creatinine Ratio,Urine-006994 Lipid Panel-[id number] 08/07/2024 Comp. Metabolic Panel [id number] 2023 PSA (Serial Monitor)-[id number] 08/07/2024 Next Appt Details Provider Name:Helen Aida dailey, 02/05/2025 11:00:00 AM, [address] [place] [address] [address], [place], [address], Insurance Providers Payer Name Payer Address Payer Phone Subscriber Number Group Number Insured Name Patient Relationship to Insured Coverage Start Date Coverage End Date [employer] [address] [address] [place] [address] [phone] [id number] Ángel Torres Self - patient is the insured [facility] Claims Department [address] [place] [id number] Ángel Torres Self - patient is the insured Medical (General) History Medical History History ICD Code Type 2 diabetes mellitus GERD Hyperlipidemia Seasonal allergies Cerebral aneurysm, saw a neurologist in [place] Hypertension use hearing aids Surgical History Surgery Date(Month/Year) cerebral aneurysm surgery left-sided carotid endarterectomy cyst removal 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 Aleman [facility] 10/2022 Hospitalization History Reason Date(Month/Year) surgeries
--- OUTSIDE RECORDS SUMMARY | 2024-11-29 12:08 | XMS_ITS ---
Author Organization [facility] Address [address] [place] [address] Care Team Providers Care Wastewater Operator Name Role Phone NATIVIDAD CANTRELL Primary Care Provider Allergies No Known Allergies Reason For Referral Reason THYRIOD NODULE BIOPS Y Diagnosis 1 Nontoxic single thyr oid nodule (E04.1) Referral Organization [facility] Referring Provider First Name [...] 20 MG TAKE 1 CAPSULE BY MO [facility] EVERY DAY 30 MINUTES BEFORE BREAKFAST [...] 01/23/2024 Encounters Encounter Location Date Provider Diagnosis [facility] [address] [address] 01/23/2024 NATIVIDAD CANTRELL Type 2 diabetes linnea [...] on right medications. He has seen his enterprise resource analyst in the past 1 year. Foot care [...] this note under HIPAA compliance and under [place] law mandated for scribe services. Patient aware [...] on right medications. He has seen his enterprise resource analyst in the past 1 year. Foot care [...] this note under HIPAA compliance and under [place] law mandated for scribe services. Patient aware [...] on right medications. He has seen his enterprise resource analyst in the past 1 year. Foot care [...] this note under HIPAA compliance and under [place] law mandated for scribe services. Patient aware [...] on right medications. He has seen his enterprise resource analyst in the past 1 year. Foot care [...] this note under HIPAA compliance and under [place] law mandated for scribe services. Patient aware [...] on right medications. He has seen his enterprise resource analyst in the past 1 year. Foot care [...] this note under HIPAA compliance and under [place] law mandated for scribe services. Patient aware [...] on right medications. He has seen his enterprise resource analyst in the past 1 year. Foot care [...] this note under HIPAA compliance and under [place] law mandated for scribe services. Patient aware [...] Reason: Provider Name:Helen dailey, 02/05/2025 11:00:00 AM, [address] [place] [address], [address], Progress Notes * Ángel JARAMILLODOB: 7 (68 yo M)Acc No.[id number]:01/23/2024 Progress Notes Patient:?Ángel JARAMILLO Provider:?NATIVIDAD CANTRELL MD :1955???Age:68 Y???Sex:Male Rishi e:01/23/2024 Address:[address] [place] [address], [address] Subjective: * Chief Complaints: * ???8 [...] age 11 left cataract surgery, Dr. Aleman, [facility] 10/2022 * Hospitalization/Major Diagno stic Procedure:?surgeries [...] Ht: 67 in. * Examination: ???General Examination: ?RESPONDER?Alert and Oriented x3. No motor or sensory [...] on right medications. He has seen his enterprise resource analyst in the past 1 year. Foot care [...] this note under HIPAA compliance and under [place] law mandated for scribe services. Patient aware of service. Verbal consent and written consent taken from the patient. Patient understands and verbalizes understanding of the scribes services and all questions answered regarding scribes services. Patient agrees to use of scribes services. Plan: * Treatment: 2.?Essential (primary) hyper tension?LAB: Albumin/Creatinine Ratio,Urine-090713 (Ordered for 01/23/2024) ?LAB: Comp. Metabolic Panel [id number] (Ordered for 01/23/2024) ?LAB: Lipid Panel-940589 (Ordered for 01/23/2024) 3.?Encounter for screening f or malignant neoplasm of prostate?LAB: PSA (Serial Monitor)-[id number] (Ordered for 01/23/2024) 4.?Others? Referral To:Interventional Radiology ?Reason:THYRIOD NODULE BIOPSY * Procedure Codes:? * Follow Up:?AW * Images: * Sign off status: Completed true * Provider:?ANTIVIDAD CANTRELL MD Date:?01/22 Generated for Patyi yariel/Linnette/eTransmitting on:?11/29/2024 12:08 PM EDT History and Physical Notes * HPI [...] bruit right side Psychiatry Normal Musculoskeletal Normal RESPONDER Alert and Oriented x 3. No motor or sensory deficit ENT Normal CVS S1 and S2 Audible. R egular Rhythm Resp Normal GI Normal Urology/Reproductive System Normal Consultation Request Notes Referral Date Referring Provider Referred Provider Not 01/23/2024 NATIVIDAD CANTRELL THYRIOD NODULE BIOPSY
--- OUTSIDE RECORDS SUMMARY | 2024-11-29 12:08 | XMS_ITS ---
Author Organization [employer] [facility] Address [address] [place] [address] Care Team Providers Care Life Cycle Assessment Analyst Name Role Phone NATIVIDAD CANTRELL Primary Care Provider Allergies No Known Allergies Reason For Referral Reason DM T 2 Referral Organization [employer] [facility] Referring Provider First Name NATIVIDAD Referring Provider Last Name GUL Referring Provider Speciality Internal M edicine Referred Provider Specialty Ophthalmolog y Referral Priority Routine Reason DM T 2 FOOT EXAM Referral Organization [employer] [facility] Referring Provider First Name NATIVIDAD Referring Provider [...] 20 MG TAKE 1 CAPSULE BY MO [facility] EVERY DAY 30 MINUTES BEFORE BREAKFAST [...] 08/07/2024 Encounters Encounter Location Date Provider Diagnosis [facility] [address] [place] [address] 08/07/2024 NATIVIDAD CANTRELL Type 2 diabetes linnea [...] on right medications. He has seen his director of category management in the past 1 year. Foot care discussed. Check A1c.referred to director of category management and podiatry EKG is normal sinus rhythm [...] on right medications. He has seen his director of category management in the past 1 year. Foot care discussed. Check A1c.referred to director of category management and podiatry EKG is normal sinus rhythm [...] and his healthcare proxy is his sister Eliva. MOLST form given Screening blood work before [...] on right medications. He has seen his director of category management in the past 1 year. Foot care discussed. Check A1c.referred to director of category management and podiatry EKG is normal sinus rhythm [...] on right medications. He has seen his director of category management in the past 1 year. Foot care discussed. Check A1c.referred to director of category management and podiatry EKG is normal sinus rhythm [...] on right medications. He has seen his director of category management in the past 1 year. Foot care discussed. Check A1c.referred to director of category management and podiatry EKG is normal sinus rhythm [...] on right medications. He has seen his director of category management in the past 1 year. Foot care discussed. Check A1c.referred to director of category management and podiatry EKG is normal sinus rhythm [...] on right medications. He has seen his director of category management in the past 1 year. Foot care discussed. Check A1c.referred to director of category management and podiatry EKG is normal sinus rhythm [...] Future Test Test Name Order Date Hemoglobin [id number] 08/07/2024 Albumin/Creatinine Ratio,Urine-[id number] Lipid Panel-[id number] 08/07/2024 Comp. Metabolic Panel [id number] 2023 PSA (Serial Monitor)-[id number] 08/07/2024 Referrals Referral Date Details 08/07/2024 08/07/2024, DM T 2 08/07/2024 08/07/2024, DM T 2 F OOT EXAM Next Appt Details Follow Up: 6 Months, Reason: Provider Name:Helen dailey 02/05/2025 11:00:00 AM, [address] [address], [place], [address], Progress Notes * Ángel JARAMILLODOB: (69 yo M)Acc No.[id number]:08/07/2024 Progress Note Patient:?Ángel JARAMILLO Provider:?NATIVIDAD CANTRELL MD :1955???Age:69 Y???Sex:Male Rishi e:08/07/2024 Address:[address] [place], [place] [id number] Subjective: * Chief Complaints: * ???Medicare Wellness [...] age 11 left cataract surgery, Dr. Aleman, [facility] 10/2022 * Hospitalization/Major Diagno stic Procedure:? [...] Ht: 67 in. 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 No motor or sensory [...] on right medications. He has seen his director of category management in the past 1 year. Foot care discussed. Check A1c.referred to director of category management and podiatry EKG is normal sinus rhythm [...] * Labs:? * ?Lab: PSA (Serial Monito r)-[id number] (Ordered for 08/07/2024) * Procedure Codes:?G0439 ANNUA L WELLNESS VST; PPS SUBSQT [id number] SYST BP LT 130 MM [id number] DIAST BP < 80 MM [id number] ELECTROCARDIOGRAM, [id number] ANNUAL DEPRESSION SCREENING 15 [id number] ANNUAL ALCOHOL MISUSE SCREEN 15 [id number] BODY MASS INDEX [id number] Pt scrn tbco id as non [id number] ADVNC CARE PLAN IN RCRD * Preventive [...] BMD NO? COLONOSCOPY UNKNOWN DATE? EYE EXAM [facility] 2022 This plan was discussed, printed, and handed to patient. 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 No motor [...]
--- OUTSIDE RECORDS SUMMARY | 2024-11-29 12:08 | XMS_ITS ---
Author Organization [facility] Address [address] [place] [address] Care Team Providers Care Parking Lot Attendant And Cashier Name Role Phone NATIVIDAD CANTRELL Primary Care Provider REASON FOR VISIT Refills Encounters Encounter Location Date Provider Diagnosis [facility] [address] [address] 09/26/2024 NATIVIDAD CANTRELL Plan Of Treatment Next Appt Details Provider Name:Helen dailey, 02/05/2025 11:00:00 AM, [address] [place] [address], [place], [address], Progress Notes * Ángel TORRESDOB: 7 (69 yo M)Acc No.[id number]:09/26/2024 Patient:?BRIANÁngel :1955???Age:69 Y???Sex:Male Address:[address] [place] [phone] * true * Date:? Generated for Patyi yariel/Linnette/eTransmitting on:?11/29/2024 12:08 PM EDT
== END 2024-11-29 10:34 | disposition home or self-care (01) ==
LOC: HO.HSMS 10:16
PROVIDERS: PCP Hospitalist; Visit Provider Psychiatry & Neurology Neurology
DX: I67.1 Cerebral aneurysm, nonruptured (principal); Z98.890 Other specified postprocedural states; E04.1 Nontoxic single thyroid nodule
CPT/HCPCS: 99214

== ENCOUNTER → 2024-11-29 10:15 | Outpatient (BNVA) | payer MEDICARE, SELFPAY | PROVIDERS: PCP Hospitalist; Visit Provider Psychiatry & Neurology Neurology | DX: I67.1 Cerebral aneurysm, nonruptured (principal); E04.1 Nontoxic single thyroid nodule; Z98.890 Other specified postprocedural states | CPT/HCPCS: 99212 ==

== ENCOUNTER → 2025-01-15 10:25 | Outpatient (REF) | payer MEDICARE, SELFPAY ==
--- NOTE | 2025-01-15 10:59 | CA_ITS ---
Transthoracic Echocardiogram Patient (Last, First, Middle): Ángel Torres J Gender: Male Date of : 1955 Age: 69 Procedure Date: 01/15/2025 Procedure Type: Transthoracic Echocardiogram Location: OP Height: 175.26 cm Weight: 58.97 kg BSA: 1.72 m2 Heart Rate: bpm BP: 138 / 80 mmHg Refrigerator Car Icer: TO/RC Referring MD: Doreen Cisneros TILE ERECTORTerrell Symptoms: I42.9 - Cardiomyopathy, unspecified Study Quality: Fair/declines contrast ECG Rhythm: Sinus Conclusions: - The left ventricular systolic function is moderately decreased. The visually estimated ejection fraction is between 35-40%. Findings Procedure Information The patient declines contrast. Left Ventricle Normal left ventricular cavity size. There is mildly increased left ventricular wall thickness. The left ventricular systolic function is moderately decreased. The visually estimated ejection fraction is between 35 40%. Venous The inferior vena cava is normal in size and collapses greater than 50% with inspiration. Prior Study Comparison No significant change compared to prior study dated: 09/19/2024. Measurements 2D Linear Measurements IVSd: 1.23 0.6-0.9/0.6-1.0 cm LVIDd: 4.60 3.9-5.3/4.2-5.9 cm LVIDd Index: 2.67 2.4-3.2/2.2-3.1 cm/m2 LVIDs: 3.74 2.0-3.6 cm LVPWd: 1.23 0.7-1.1 cm LV Mass: 264.74 67-162/88-224 g LV Mass Index: 153.92 43-95/49-115 g/m2 LVOT Diam: 2.20 3.0+(-)1.3 cm 2D Systolic Function EF 4C: 39.50 >55% LVOT LVOT Pk Kyrie: 0.79 LVOT Mn Kyrie: 0.55 LVOT VTI: 0.17 LVOT Pk Grad: 2.00 LVOT Mn Grad: 1.00 LVOT Diam: 2.20 LVOT Area: 3.80 Tricuspid Valve RA Press: 3.00 Updated in Other Vendor System with Status of Final Db Rowell MD electronically signed on 01/16/2025 10:37:48 AM with status of Final
--- OUTSIDE RECORDS SUMMARY | 2025-01-15 12:00 | XMS_ITS | Clinical Summary ---
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 10/26/2024 Active loratadine (CLARITIN) 10 mg tablet Take 10 mg by mouth. 10/26/2024 Active metFORMIN ER (GLUCOPHAGE XR) 500 mg tablet TAKE 1 TABLET BY MOUTH TWICE A DAY WITHH EVENING MEAL 09/20/2024 Active metoprolol succinate XL (TOPROL XL) 25 mg tablet SMARTSI Tablet(s) By Mouth Daily 11/02/2024 Active omeprazole (PriLOSEC) 20 mg capsule SMARTSI Capsule(s) By Mouth Every Morning 09/21/2024 Active pravastatin (PRAVACHOL) 40 mg tablet SMARTSI Tablet(s) By Mouth Daily Active valsartan (DIOVAN) 160 mg tablet Take 160 mg by mouth. 10/26/2024 Active gabapentin (NEURONTIN) 100 mg capsule Take 100 mg by mouth 3 times a day. Active aspirin 81 mg EC tablet Take by mouth once a day. Active Active Problems Problem Noted Date Diagnosed Date Bilateral carotid artery stenosis 12/14/2024 Assessment & Plan (12/14/2024 6:29 PM EDT): His left ICA stenosis has progressed and appears to meet criteria for intervention with a duplex measuring the stenosis to be 80-99% which correlates well with his recent CTA. Given his history of prior interposition graft and neck radiation we feel that intervention would best be approached via a transfemoral approach. Given the complexity and his known cerebral aneurysms we plan to refer him to our colleagues in Neuro IR for their opinion. -Continue aspirin and statin -Referral to [facility] for possible transfemoral stenting of asymptomatic left ICA stenosis Thyroid nodule 12/14/2024 Assessment & Plan (12/14/2024 6:31 PM EDT): -PCP referral for thyroid nodule greater than 1 cm in diameter Encounters Date Type Department Care Team Description 01/01/2025 11:00 AM EDT - 01/01/2025 11:59 PM EDT Hospital Encounter [facility] Interventional Radiology [address] [place] [address] Discharge Disposition: Home or Self Care () 12/28/2024 Telephone [facility] Interventional Radiology [address] [place] [address] Anjali Sherman, FIELD ARTILLERY RADAR OPERATOR 12/14/2024 11:40 AM EDT Follow-Up [facility] Vascular Surgery [address] [place] [address] Multicultural Internship: Whitney Nam MD MPH Bilateral carotid artery stenosis (Primary Dx); Thyroid nodule 12/14/2024 10:13 AM EDT - 12/14/2024 11:59 PM EDT Hospital Encounter [facility] ACC Vascular Lab [address] [place] [address] Whitney Melton MD MPH Personal history of tobacco use, presenting hazards to health Discharge Disposition: Home or Self Care () 12/06/2024 Telephone [facility] Vascular Surgery [address] [place] [address] Multicultural Internship: Whitney Nam MD MPH 12/04/2024 11:59 AM EDT - 12/04/2024 11:59 PM EDT Hospital Encounter [facility] CT Scan [address] [place] [address] Whitney Melton MD MPH Asymptomatic carotid artery stenosis, left Discharge Disposition: Home or Self Care () 11/30/2024 1:40 PM EDT Office Visit [facility] Vascular Surgery [address] [place] [address] Multicultural Internship: Whitney Nam MD MPH Asymptomatic carotid artery stenosis, left (Primary Dx); Personal history of tobacco use, presenting hazards to health 11/30/2024 10:18 AM EDT - 11/30/2024 11:59 PM EDT Hospital Encounter [facility] Vascular Lab [address] [place] [address] Stenosis of carotid artery, unspecified laterality Discharge Disposition: Home or Self Care () 11/30/2024 Orders Only [facility] XRay [address] [place] [phone] Imani Bautista MD 11/16/2024 Orders Only [facility] Vascular Surgery [address] [place] [phone] Multicultural Internship: Mayco Ruiz NP Stenosis of carotid artery, unspecified laterality (Primary Dx) 11/15/2024 Transcribe Orders [facility] Vascular Surgery [address] [place] [id number] Multicultural Internship: David Alvarenga MD Occlusion of left carotid artery (Primary Dx) from Last 3 Months Social History Tobacco Use Types Packs/Day Years Used Date Smoking Tobacco: Never Smokeless Tobacco: Never Tobacco Cessation:Counseling Given: Not Answered Alcohol Use Standard Drinks/Week Comments Never 0 (1 standard drink = 0.6 oz pur e alcohol) Sex and Gender Information Value Date Recorded Sex Assigned at Not on file Legal Sex Male 1:51 PM EDT Gender Identity Not on file Sexual Orientation Not on file Last Filed Vital Signs Vital Sign Reading Time Taken Comments Blood Pressure 129/87 01/01/2025 11:08 AM EDT Pulse 95 01/01/2025 11:08 AM EDT Temperature 36.2 ??C (97.1 ??F) 01/01/2025 11:08 AM E DT Respiratory Rate 16 12/14/2024 11:18 AM EDT Oxygen Saturation 98% 01/01/2025 11:08 AM EDT Inhaled Oxygen Concentration - - Weight 58.5 kg (129 lb) 01/01/2025 11:08 AM EDT Height 175.3 cm (5' 9 ) 01/01/2025 11:08 AM EDT Body Mass Index 19.05 01/01/2025 11:08 AM EDT Plan of Treatment Upcoming Encounters Date Type Department Care Team (Late st Contact Info) Description 12/20/2025 9:30 AM EDT Appointment [facility] ACC Vascular Lab [address], [place] [phone] Whitney Melton MD MPH [address] [place], [place] [phone] 12/20/2025 10:40 AM EDT Follow-Up [facility] ACC Building Vascular Surgery [address] [place] [address] Multicultural Internship: Whitney Nam MD MPH [address] [place], [place] [phone] Health Maintenance Due Date Last Done Comments Cologuard 1957 Colon Cancer Screening 1957 Colonoscopy 1957 FOBT / Fit Test 1957 Hepatitis C Screening 1957 Sigmoidoscopy 1957 Medicare AWV 1958 Zoster Vaccines (1 of 2) 2007 Pneumococcal Vaccine: 50+ Years (2 of 2 - PCV) 03/26/2015 03/26/2014 DTaP,Tdap,and Td Vaccines (2 - Td or Tdap) 03/26/2024 03/26/2014 COVID-19 Vaccine (3 - 2023-2 5 season) 2024 12/18/2020, 11/20/2020 Alcohol/Substance Use Screening 08/15/2024 Depression Screening and Follow-Up 08/15/2024 Health Care Proxy Review 08/15/2024 Social Drivers of Health Annual Screening 08/15/2024 Influenza Vaccine (Season Ended) 2025 RSV Vaccine (60+ years old a nd patients) (1 - 1-dose 75+ series) 2032 Hepatitis B Vaccines Aged Out No long er eligible based on patient's age to complete this topic Procedures * Due to [place] [employer] law, this organization might not be sharing negative HIV tests. Procedure Name Priority Date/Time Associated Diagnosis Comments AAA SCREENING Routine 12/14/2024 10:25 AM EDT Personal history of tobacco use, presenting hazards to health CT ANGIOGRAM HEAD AND NECK W CONTRAST Routine 12/04/2024 1:28 PM EDT Asymptomatic carotid artery stenosis, left CREATININE Routine 11/30/2024 2:46 PM EDT Asymptomatic carotid artery stenosis, left CAROTID DUPLEX SCAN BILATERAL Routine 11/30/2024 10:56 AM EDT Stenosis of carotid artery, unspecified laterality from Last 3 Months Results * Due to [place] [employer] law, this organization might not be sharing negative HIV tests. * AAA Screening (Smoking History) (12/14/2024 10:25 AM EDT) AP Diameter Abdominal Aorta Infra-renal Distal Arterial 1.9 cm Trans Diameter Abdominal Aorta Supra-renal Arterial 2.0 cm AP Diameter Abdominal Aorta Supra-renal Arterial 2.2 cm AP Diameter Abdominal Aorta Infra-renal Proximal Arterial 1.8 cm Trans Diameter Abdominal Aorta Infra-renal Proximal Arterial 1.7 cm AP Diameter Juxtarenal Aorta Arterial 2.1 cm Trans Diameter Common Iliac Proximal Arterial Left 1.03 cm Trans Diameter Common Iliac Proximal Arterial Right 1.09 cm Trans Diameter Juxtarenal Aorta Arterial 2.4 cm Trans Diameter Abdominal Aorta Infra-renal Distal Arterial 2.1 cm AP Diameter Common Iliac Proximal Arterial Left 1.02 cm AP Diameter Common Iliac Proximal Arterial Right 1.16 cm Largest Aortic Measurement 2.4 cm Anatomical Region Laterality Modality Abdominal aorta Ultrasound Narrative 12/14/2024 1:20 PM EDT ?The AAA screening study demonstrated no evidence of abdominal aortic aneurysm or common iliac artery aneurysm. Abdominal Aorta Suprarenal Aorta: patent Juxtarenal Aorta: patent Proximal Infrarenal Aorta: patent Distal Infrarenal Aorta: patent Largest aortic measurement 2.4 cm Proximal Right Common Iliac Artery: patent Proximal Left Common Iliac Artery: patent us Whitney Melton MD MPH CV VASCULAR PROCEDURES F inal Result * CT ANGIOGRAM HEAD AND NECK W CONTRAST (12/04/2024 1:28 PM EDT) Anatomical Region Laterality Modality Head and Neck Computed Tomogra phy 12/06/2024 8:41 AM EDT Impressions 12/06/2024 10:26 AM EDT Atherosclerosis, predominantly involving left proximal internal carotid artery with smooth hypodense plaque resulting in severe short segment stenosis. Complete occlusion of left external carotid artery. (Condon alert) Atherosclerosis involving right carotid bifurcation and proximal segment of the internal carotid artery resulting in medl-ht-irtzurcy stenosis. Mild to moderate stenosis at the origin of left vertebral artery. Short segment zcib-cn-nmkozsfn stenosis involving proximal right subclavian artery. Inferiorly oriented 2 mm aneurysm at the branching point of left middle cerebral artery. Enlarged nodular left lobe of thyroid. Nonemergent follow-up with ultrasound is recommended if not already performed. 3 mm micronodules in the right upper lobe. ??For this type of nodule, the Fleischner Society recommends no CT follow-up if the patient is at a low risk for lung cancer, and an optional CT follow-up in 12 months if the patient is at a high risk for lung cancer. For comments and reference, please see [https://doi.org/10.1148/radiol.7822377129]. For information about nodule measurements and reporting, please see [https://pubs.rsna.org/doi/10.1148/radiol.5126446094]. A(n) Condon actionable finding has been communicated to the ordering or responsible provider via the [employer] system on 12/06/2024 10:26 AM. ??Receipt of this communication by the responsible provider will be documented in [employer] Actionable Findings upon receiving acknowledgement if applicable, Message ID [id number]. If this radiology report contains a blank impression section, it is an incomplete radiology report. ??Please contact the interpreting radiologist or applicable radiology division as soon as possible to obtain the completed interpretation. ? Workstation ID: [id number] Narrative 12/06/2024 10:26 AM EDT EXAMINATION: CT of head without contrast CTA of head and neck with contrast TECHNIQUE: CT of head without contrast administration. ??Multiplanar reformats created. CT angiogram of head and neck following intravenous administration of standard dose of Omnipaque. 3-D maximum intensity projection and volume rendered images were created. To the best of my knowledge this study has been performed within 24 hours of patient's arrival to the hospital. Degree of stenosis estimated using NASCET criteria. Carotid stenosis Reference: Mild = <50% stenosis. Moderate = 50-69% stenosis. Severe = 70-89% stenosis. Hairline/critical = 90-99% stenosis. Occluded = 100% stenosis. CLINICAL INFORMATION: Left internal carotid artery stenosis. COMPARISON: Carotid duplex 11/30/2024 FINDINGS: CTA NECK: Left-sided three-vessel origin aortic arch. Origins of brachiocephalic artery, right subclavian artery and left subclavian artery are patent. Atherosclerotic soft and calcified plaque involving proximal right subclavian artery with short segment pkhh-fu-zmuvwwpr stenosis (series 8: Image 371, 384) Proximal common carotid artery is maintained. Extensive atherosclerotic calcification involving distal common carotid artery and carotid bifurcation resulting in mild to moderate stenosis at the origin of right internal carotid artery. Atherosclerotic soft and hard plaque proximal right internal carotid artery resulting in mild to moderate short segment stenosis. Remainder of right internal carotid artery is maintained. The left common carotid artery is maintained. There is small step off at the level of bifurcation, likely related to prior surgery. There is smooth circumferential hypodense plaque involving origin and proximal segment of the left internal carotid artery resulting in severe short segment stenosis (series 8: Image 230-235) remainder of internal carotid artery is maintained. Complete occlusion of external carotid artery. Note made of atherosclerotic calcification in the region of the external carotid artery. Atherosclerotic calcification at the origin of right vertebral artery with qgof-vh-zcrgabkt stenosis. Origin of left vertebral artery is patent. Bilateral cervical vertebral arteries are maintained. Note made of hypoplastic right vertebral artery, a normal variant. CTA HEAD: Slightly limited study due to streak artifact from coil mass located at the left carotid terminus. 2 mm inferiorly oriented aneurysm noted at the branching point of left MCA. Scattered atherosclerotic calcification, predominantly involving bilateral carotid siphon without hemodynamically significant stenosis. Bilateral intracranial internal carotid arteries, MCAs and ACAs are maintained. Bilateral intracranial vertebral arteries and basilar artery are maintained. Other: Enlarged multinodular left lobe of thyroid. Bilateral apical pleural thickening and calcification, predominantly involving left apex. 3 mm micronodules noted in the partially visualized lung Paraseptal emphysematous changes in partially visualized lungs. Aerated secretions noted in the posterior oropharynx and trachea above the bifurcation.. Resulting Agency Comment [id number] Procedure Note Batsheva Perkins MD - 12/06/2024 EXAMINATION: CT of head without contrast CTA of head and neck with contrast TECHNIQUE: CT of head without contrast administration. Multiplanar reformatscreated. CT angiogram of head and neck following intravenous administration ofstandard dose of Omnipaque. 3-D maximum intensity projection and volumerendered images were created. To the best of my knowledge this study has been performed within 24 hoursof patient's arrival to the hospital. Degree of stenosis estimated using NASCET criteria. Carotid stenosis Reference: Mild = <50% stenosis. Moderate = 50-69% stenosis. Severe = 70-89% stenosis. Hairline/critical = 90-99% stenosis. Occluded = 100% stenosis. CLINICAL INFORMATION: Left internal carotid artery stenosis. COMPARISON: Carotid duplex 11/30/2024 FINDINGS: CTA NECK: Left-sided three-vessel origin aortic arch. Origins of brachiocephalicartery, right subclavian artery and left subclavian artery are patent. Atherosclerotic soft and calcified plaque involving proximal rightsubclavian artery with short segment zzig-ao-xsxtuyxq stenosis (series 8:Image 371, 384) Proximal common carotid artery is maintained. Extensive atheroscleroticcalcification involving distal common carotid artery and carotidbifurcation resulting in mild to moderate stenosis at the origin of rightinternal carotid artery. Atherosclerotic soft and hard plaque proximalright internal carotid artery resulting in mild to moderate short segmentstenosis. Remainder of right internal carotid artery is maintained. The left common carotid artery is maintained. There is small step off atthe level of bifurcation, likely related to prior surgery. There is smoothcircumferential hypodense plaque involving origin and proximal segment ofthe left internal carotid artery resulting in severe short segmentstenosis (series 8: Image 230-235) remainder of internal carotid artery ismaintained. Complete occlusion of external carotid artery. Note made ofatherosclerotic calcification in the region of the external carotidartery. Atherosclerotic calcification at the origin of right vertebral artery beqmvuyq-fw-engnygme stenosis. Origin of left vertebral artery is patent.Bilateral cervical vertebral arteries are maintained. Note made ofhypoplastic right vertebral artery, a normal variant. CTA HEAD: Slightly limited study due to streak artifact from coil mass located atthe left carotid terminus. 2 mm inferiorly oriented aneurysm noted at the branching point of leftMCA. Scattered atherosclerotic calcification, predominantly involvingbilateral carotid siphon without hemodynamically significant stenosis. Bilateral intracranial internal carotid arteries, MCAs and ACAs aremaintained. Bilateral intracranial vertebral arteries and basilar artery aremaintained. Other: Enlarged multinodular left lobe of thyroid. Bilateral apical pleural thickening and calcification, predominantlyinvolving left apex. 3 mm micronodules noted in the partially visualizedlung Paraseptal emphysematous changes in partially visualized lungs. Aerated secretions noted in the posterior oropharynx and trachea above thebifurcation.. IMPRESSION: Atherosclerosis, predominantly involving left proximal internal carotidartery with smooth hypodense plaque resulting in severe short segmentstenosis. Complete occlusion of left external carotid artery. (Orangealert) Atherosclerosis involving right carotid bifurcation and proximal segmentof the internal carotid artery resulting in clwu-fr-preleigr stenosis. Mild to moderate stenosis at the origin of left vertebral artery. Short segment zroc-ce-rbpyqpbx stenosis involving proximal rightsubclavian artery. Inferiorly oriented 2 mm aneurysm at the branching point of left middlecerebral artery. Enlarged nodular left lobe of thyroid. Nonemergent follow-up withultrasound is recommended if not already performed. 3 mm micronodules in the right upper lobe. For this type of nodule, theFleischner Society recommends no CT follow-up if the patient is at a lowrisk for lung cancer, and an optional CT follow-up in 12 months if thepatient is at a high risk for lung cancer. For comments and reference, please see[https://doi.org/10.1148/radiol.9270304382]. For information about nodulemeasurements and reporting, please see[https://pubs.rsna.org/doi/10.1148/radiol.2549999297]. A(n) Condon actionable finding has been communicated to the ordering orresponsible provider via the [employer] system on12/06/2024 10:26 AM. Receipt of this communication by the responsibleprovider will be documented in [employer] Findings uponreceiving acknowledgement if applicable, Message ID [id number]. If this radiology report contains a blank impression section, it is anincomplete radiology report. Please contact the interpreting radiologistor applicable radiology division as soon as possible to obtain thecompleted interpretation. Workstation ID: [id number] Whitney Melton MD MPH IMG CT PROCEDURES Final Result * Creatinine (11/30/2024 2:46 PM EDT) Creatinine 0.87 0.60 - 1.30 mg/dL 11/30/2024 3:39 PM EDT [facility] eGFR >90 >=60 mL/min/1. 73m2 [facility] 11/30/2024 3:39 PM EDT [facility] Comment:The estimated glomer ular filtration rate (eGFR) is calculated using a new formula developed by the NKF-ASN task force to eliminate race-based correction factors. The new formula uses serum/plasma creatinine, age, and gender to determine eGFR. A value below 60mls/min might indicate kidney disease and will be flagged. For additional information, see Jose et al, Am J Kidney Dis. 2021;79(2):268- 288, A Unifying Approach for GFR estimation: Recommendations of the NKF-ASN Task Force on Reassessing the Inclusion of Race in Diagnosing Kidney Disease . Blood Structure of peripheral vein / Unknown Venipuncture / Unknown 11/30/2024 2:46 PM EDT 11/30/2024 2:46 PM EDT us Whitney Melton MD MPH LAB BLOOD ORDERABLES Fin al Result [facility] [address] [place] [address], [place] * CAROTID DUPLEX SCAN BILATERAL (11/30/2024 10:56 AM EDT) PSV Common Carotid Distal Arterial Left 49.8 cm/s EDV Common Carotid Distal Arterial Left 24.3 cm/s PSV Common Carotid Proximal Arterial Left 36.8 cm/s EDV Common Carotid Proximal Arterial Left 13.7 cm/s PSV Internal Carotid Distal Arterial Left 159 cm/s EDV Internal Carotid Distal Arterial Left 60.3 cm/s PSV Internal Carotid Middle Arterial Left 243 cm/s EDV Internal Carotid Middle Arterial Left 61.6 cm/s PSV Internal Carotid Proximal Arterial Left 543 cm/s EDV Internal Carotid Proximal Arterial Left 161 cm/s PSV Vertebral Arterial Left 58.7 cm/s PSV Bulb Arterial Right 316 cm/s EDV Bulb Arterial Right 116 cm/s PSV Common Carotid Distal Arterial Right 82.7 cm/s EDV Common Carotid Distal Arterial Right 29.4 cm/s PSV Common Carotid Proximal Arterial Right 109 cm/s EDV Common Carotid Proximal Arterial Right 35 cm/s PSV Internal Carotid Distal Arterial Right 127 cm/s EDV Internal Carotid Distal Arterial Right 46.6 cm/s PSV Internal Carotid Middle Arterial Right 211 cm/s EDV Internal Carotid Middle Arterial Right 78 cm/s PSV Internal Carotid Proximal Arterial Right 234 cm/s EDV Internal Carotid Proximal Arterial Right 72.8 cm/s PSV Vertebral Arterial Right 53.6 cm/s PSV External Carotid Arterial Right 136 cm/s BULBRIR 3.82 Ratio Prox Internal Carotid Right 2.83 ICAMidRI 2.55 ICADistRI 1.54 Ratio Prox Internal Carotid Left 10.90 IACMIDRIL 4.88 IACDISTRIL 3.19 Anatomical Region Laterality Modality Carotid Artery Ultrasound Narrative 12/01/2024 9:18 AM EDT ?The right carotid duplex scan was abnormal: proctor scale imaging and spectral Doppler velocities were consistent with 50-69% stenosis of the right bulb through mid internal carotid artery. ?The right vertebral flow was antegrade. ?The left carotid duplex scan was abnormal: proctor scale imaging and spectral Doppler velocities were consistent with 80-99% stenosis of the left internal carotid artery. NOTE: Transverse depiction of severity of stenosis was not accurately depicted due to patient's very high carotid bifurcation. ?Duplex findings appeared consistent with occlusion of the left proximal external carotid artery from a transverse imaging perspective only. Patient has a very high carotid bifurcation, unable to visualize in a sagittal plane. ?The left vertebral flow was antegrade. ?Doppler waveforms appeared dampended bilaterally, possibly consistent with cardiac changes. ?Incidental note was made of a thyroid nodule on the left thyroid lobe measuring 2.2 x 1.4 x 1.5 cm. This was a technically limited/challenging exam to due patient's neck habitus and a very high/jawline carotid bifurcation on the left. Right Carotid Right Common Carotid Artery Proximal: <50% stenosis Right Carotid Bulb: 50-69% stenosis; moderate, irregular, heterogeneous and mildly calcific plaque Right Internal Carotid Artery Proximal: 50-69% stenosis; moderate, irregular, heterogeneous and mildly calcific plaque Right Internal Carotid Artery Mid: 50-69% stenosis; moderate, irregular, heterogeneous and mildly calcific plaque Right Vertebral Artery: flow direction: antegrade Left Carotid Left Internal Carotid Artery Proximal: 80-99% stenosis; severe, smooth, homogeneous plaque Left External Carotid Artery: occluded stenosis Left Vertebral Artery: flow direction: antegrade Tech Comments Left carotid artery stenosis per order, patient poor historian No previous notes, imaging or operative reports available for comparison us Stephanie BOUCHER CV VASCULAR PROCEDURES Final Res ult from Last 3 Months Insurance MEDICARE Care Teams 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
== END ==
LOC: HO.CARD 10:25
PROVIDERS: PCP Hospitalist; Visit Provider Nurse Practitioner Family
DX: I42.9 Cardiomyopathy, unspecified (principal)
CPT/HCPCS: 93308

== ENCOUNTER → 2025-01-15 10:59 | Outpatient (BNV) | payer MEDICARE, SELFPAY | PROVIDERS: PCP Hospitalist; Visit Provider Internal Medicine | DX: I42.8 Other cardiomyopathies (principal); I51.89 Other ill-defined heart diseases | CPT/HCPCS: 93308 ==

== ENCOUNTER 2025-01-30 10:19 | Outpatient (AMB) | payer MEDICARE, SELFPAY ==
--- NOTE | 2025-01-30 10:42 | MHC.OFFVIS ---
Vital Signs 01/30/25 10:44 Height 5 ft 9 in Weight 130 lb 1.164 oz BMI 19.2 BP 110/64 Blood Pressure Location Lt brachial Position Sitting Pulse 67 Pulse Source Pulse Oximeter Intake Visit Reasons: 3m follow up Change Control Specialist Required: No Accompanied by: Self / Same As Patient Allergies No Known Allergies Allergy (Verified 11/29/24 10:21) Medication List - Last Reconciled 01/30/25 by Db Rowell MD aspirin 81 mg PO QAM loratadine 10 mg PO QAM metformin ER 500 mg PO BID omeprazole 20 mg PO QAM pravastatin 40 mg PO BEDTIME HPI Comments Details: Ángel returns for follow-up. He was actually seen in consultation regarding preoperative stratification for carotid endarterectomy. He had left carotid endarterectomy in 2017. More recently had right carotid endarterectomy on it seems that was uneventful. However, during preoperative workup he was found to have cardiomyopathy. That led to diagnostic catheterization without any significant findings. Overall, he states he feels well. He does not have any clear-cut cardiac symptoms. PFSH Medical History Aphasia [place]HE (hard of hearing) Family history of sickle cell disease GERD (gastroesophageal reflux disease) Nasopharyngeal mass CVA (cerebral vascular accident) Cerebral aneurysm HTN (hypertension) Seasonal allergies Hyperlipidemia Diabetes Surgical History Hx of cardiac cath Hx of left cataract extraction H/O colonoscopy Hx of neck surgery History of carotid endarterectomy History of surgery for cerebral aneurysm History of carpal tunnel release Family History Father Cerebral aneurysm Mother Diabetes Social History Are you a primary health care law specialist to a significant other at home: No Do you presently have visiting nurse or other home services: No Alcohol intake: never Patient Tobacco Use Status: Former Tobacco user Tobacco use type: Cigarette Years Smoked: 4 Review of Systems Const Denies chills, Denies fatigue, Denies fever(s), Denies frequent falls, Denies weakness, Denies weight gain and Denies weight loss ENT Denies dizziness Card Denies chest pain, Denies leg edema, Denies lightheadedness, Denies palpitations, Denies dyspnea and Denies dyspnea on exertion Resp Denies cough, Denies dyspnea and Denies dyspnea on exertion GI Denies hematochezia Musc Denies abnormal gait, Denies muscle weakness, Denies numbness, Denies radiating pain into limb and Denies tingling Neuro Denies abnormal gait, Denies dizziness, Denies frequent falls, Denies numbness, Denies tingling and Denies weakness Endo Denies fatigue and Denies palpitations Physical Exam Vital Signs: Last Vital Signs Pulse 67 01/30/25 10:44 BP 110/64 01/30/25 10:44 BMI result Body Mass Index 19.2 Const General: comfortable and no acute distress Orientation/consciousness: patient oriented x3 HEENT Other: Unremarkable Head: Yes normal to inspection Neck Neck: Yes normal visual inspection Chest Chest palpation & inspection: normal inspection of the chest Resp Auscultation: clear to auscultation bilaterally Cardio Palpation: normal PMI Heart sounds: S1 normal heart sound present, S2 normal heart sound present, no gallops, no murmurs and no rubs GI Palpation (GI): Soft to palpation Back/Spine/Pelvis Other: unremarkable Skin General skin exam: no rashes or lesions noted Neuro General: patient oriented x3 Extrem General: Yes normal to inspection Psych Mental Status: mental status grossly normal Assessment & Plan Assessment & Plan (1) Cardiomyopathy: Code(s): I42.9 - Cardiomyopathy, unspecified Category: Medical Plan In the initial echocardiogram from September 2024, LVEF is 30-35%. Mild mitral/tricuspid regurgitation and moderate pulmonary hypertension. In the repeat study, LVEF is about 35-40%, overall grossly unchanged. Cardiac catheterization with normal coronaries. Etiology for the cardiomyopathy itself is unclear. He has no overt symptoms from this either. Entresto was started in the past but not continued because of [place]. We can try low-dose lisinopril. His blood pressure is on the lower side and hence may not be able to optimize much of medications. With regard to the etiology for the cardiomyopathy itself, not clear. Obtain cardiac MRI. It seems he has brain aneurysms with clipping and has obtain MRIs without any issues. Follow up after the above. Discussion Notes I discussed with the patient the management of cardiomyopathy and the alternative medication lisinopril, considering the cost implications. We reviewed the necessity of a cardiac MRI to determine the cause of decreased heart function. The risks, benefits, and alternatives to imaging were explained, with specific attention to the history of an intracranial aneurysm, which is not a contraindication for cardiac MRI. The patient understands the importance of adherence to the prescribed medication and future blood work. We agreed on the plan, and he consented to proceed with the cardiac MRI and follow-up evaluation. Patient was informed and verbally consented to the use of an ambient scribe for clinic note documentation during this visit. Total time spent including review of data, counseling, documentation, coordination of care-32 minutes. Orders: Orders Basic Metabolic Panel 2 Weeks I42.9 - Cardiomyopathy, unspecified MR cardiac morph fnct w/wo con Today I42.9 - Cardiomyopathy, unspecified Medications: New lisinopril 2.5 mg PO DAILY 90 tabs 1RF Patient Instructions: - Take the new heart medication as prescribed. - Complete blood work in two weeks as ordered. - Schedule and attend the cardiac MRI appointment. - Report any new or worsening symptoms immediately. - Follow up with the details mentioned in the discussion. Coding Level of Care Code Est Pt Level 4 (29168) Complex EM visit Add On G2211 Diagnoses Cardiomyopathy I42.9
[2025-01-30 10:44] VITALS: BP 110/64; PULSE 67; BMI 19.2
--- OUTSIDE RECORDS SUMMARY | 2025-01-30 11:40 | XMS_ITS | Clinical Summary ---
Author Organization [facility] Address [address] [place] [address] Care Team Providers Care Suction Operator Name Role Phone Yvrose Granado Primary Care Provider [phone] Allergies No known active allergies Medications amLODIPine [...] - 01/01/2025 11:59 PM EDT Hospital Encounter [facility] Interventional Radiology [address] [place] [address] Discharge Disposition: Home or Self Care () 12/28/2024 Telephone [facility] Interventional Radiology [address] [place] [address] Anjali Sherman, COMMUNICATIONS DESIGNER 12/14/2024 11:40 AM EDT Follow-Up [facility] Vascular Surgery [address] [place] [address] Asbestos Microscopist: Whitney Nam MD MPH Bilateral carotid artery stenosis (Primary Dx); Thyroid nodule 12/14/2024 10:13 AM EDT - 12/14/2024 11:59 PM EDT Hospital Encounter [facility] Vascular Lab [address] [place] [address] Whitney Melton MD MPH Personal history of tobacco use, presenting hazards to health Discharge Disposition: Home or Self Care () 12/06/2024 Telephone [facility] Vascular Surgery [address] [place] [address] Asbestos Microscopist: Whitney Nam MD MPH 12/04/2024 11:59 AM EDT - 12/04/2024 11:59 PM EDT Hospital Encounter [facility] CT Scan [address] [place] [address] Whitney Melton MD MPH Asymptomatic carotid artery stenosis, left Discharge Disposition: Home or Self Care () 11/30/2024 1:40 PM EDT Office Visit [facility] Vascular Surgery [address] [place] [address] Asbestos Microscopist: Whitney Nam MD MPH Asymptomatic carotid artery stenosis, left (Primary Dx); Personal history of tobacco use, presenting hazards to health 11/30/2024 10:18 AM EDT - 11/30/2024 11:59 PM EDT Hospital Encounter [facility] Vascular Lab [address] [place] [address] Stenosis of carotid artery, unspecified laterality Discharge Disposition: Home or Self Care () 11/30/2024 Orders Only [facility] XRay [address] [place] [id number] Imani Bautista MD 11/16/2024 Orders Only [facility] Vascular Surgery [address] [place] [id number] Asbestos Microscopist: Mayco Ruiz NP Stenosis of carotid artery, unspecified laterality (Primary Dx) 11/15/2024 Transcribe Orders [facility] Vascular Surgery [address] [place] [address] Asbestos Microscopist: David Alvarenga MD Occlusion of left carotid [...] 95 01/01/2025 11:08 AM EDT Temperature 36.2 C (97.1 F) 01/01/2025 11:08 AM EDT Respiratory Rate 16 12/14/2024 11:18 AM EDT [...] Info) Description 12/20/2025 9:30 AM EDT Appointment [facility] Vascular Lab [address] [place] [address] Whitney Melton MD MPH [address] [place], [place] [id number] Health Maintenance Due Date Last Done Comments [...] complete this topic Procedures * Due to [place] law, this organization might not be sharing [...] Last 3 Months Results * Due to [place] the[place] law, this organization might not be sharing [...] aorta Ultrasound Narrative 12/14/2024 1:20 PM EDT The AAA screening study demonstrated no evidence of [...] Complete occlusion of left external carotid artery. ([place] alert) Atherosclerosis involving right carotid bifurcation and proximal segment of the internal carotid artery resulting in pwll-cr-hrwvcvhg stenosis. Mild to moderate stenosis at the origin of left vertebral artery. Short segment ycul-pg-dsamoiog stenosis involving proximal right subclavian artery. Inferiorly oriented 2 mm aneurysm at the branching point of left middle cerebral artery. Enlarged nodular left lobe of thyroid. Nonemergent follow-up with ultrasound is recommended if not already performed. 3 mm micronodules in the right upper lobe. For this type of nodule, the Fleischner Society recommends no CT follow-up if the patient is at a low risk for lung cancer, and an optional CT follow-up in 12 months if the patient is at a high risk for lung cancer. For comments and reference, please see [https://doi.org/10.1148/radiol.7424128170]. For information about nodule measurements and reporting, please see [https://pubs.rsna.org/doi/10.1148/radiol.8878722664]. A(n) [place] actionable finding has been communicated to the ordering or responsible provider via the [employer] system on 12/06/2024 10:26 AM. Receipt of this communication by the responsible provider will be documented in [employer] upon receiving acknowledgement if applicable, Message ID [id number]. If this radiology report contains a blank impression section, it is an incomplete radiology report. Please contact the interpreting radiologist or applicable radiology division as soon as possible to obtain the completed interpretation. Workstation ID: [id number] Narrative 12/06/2024 10:26 AM EDT EXAMINATION: CT of head without contrast CTA of head and neck with contrast TECHNIQUE: CT of head without contrast administration. Multiplanar reformats created. CT angiogram of head and [...] proximal right subclavian artery with short segment egzs-ei-ughtxmbi stenosis (series 8: Image 371, 384) Proximal [...] the origin of right vertebral artery with fnqy-ac-lhkmtgnv stenosis. Origin of left vertebral artery is [...] trachea above the bifurcation.. Resulting Agency Comment [id number] Procedure Note Batsheva Perkins MD - 12/06/2024 [...] involving proximal rightsubclavian artery with short segment kujz-rm-bdhwqiti stenosis (series 8:Image 371, 384) Proximal common [...] at the origin of right vertebral artery urgrnxzo-gb-vtevcbfe stenosis. Origin of left vertebral artery is [...] segmentof the internal carotid artery resulting in pguc-an-qskgarei stenosis. Mild to moderate stenosis at the origin of left vertebral artery. Short segment puzt-to-ubbxgjmg stenosis involving proximal rightsubclavian artery. Inferiorly oriented [...] lung cancer. For comments and reference, please see[https://doi.org/10.1148/radiol.6495057660]. For information about nodulemeasurements and reporting, please see[https://pubs.rsna.org/doi/10.1148/radiol.7825425999]. A(n) [place] actionable finding has been communicated to the ordering orresponsible provider via the [employer] system on12/06/2024 10:26 AM. Receipt of this communication by the responsibleprovider will be documented in [employer] uponreceiving acknowledgement if applicable, Message ID [id number]. If this radiology report contains a blank impression section, it is anincomplete radiology report. Please contact the interpreting radiologistor applicable radiology division as soon as possible to obtain thecompleted interpretation. Workstation ID: [id number] us Whitney Melton MD MPH IMG CT PROCEDURES Final Result * Creatinine (11/30/2024 2:46 PM EDT) Creatinine 0.87 0.60 - 1.30 mg/dL 11/30/2024 3:39 PM EDT [facility] eGFR >90 >=60 mL/min/1. 73m2 [place] MANUAL 11/30/2024 3:39 PM EDT [facility] Comment:The estimated glomer ular filtration rate (eGFR) is calculated using a new formula developed by the NKF-ASN task force to eliminate race-based correction factors. The new formula uses serum/plasma creatinine, age, and gender to determine eGFR. A value below 60mls/min might indicate kidney disease and will be flagged. For additional information, see Garcia et al, Am J Kidney Dis. 2021;79(2):268- 288, A Unifying Approach for GFR estimation: Recommendations of the NKF-ASN Task Force on Reassessing the Inclusion of Race in Diagnosing Kidney Disease . Blood Structure of peripheral vein / Unknown Venipuncture / Unknown 11/30/2024 2:46 PM EDT 11/30/2024 2:46 PM EDT us Whitney Melton MD MPH LAB BLOOD ORDERABLES Fin al Result [facility] [address] [place] [address], [place] * CAROTID DUPLEX SCAN BILATERAL (11/30/2024 [...] Artery Ultrasound Narrative 12/01/2024 9:18 AM EDT The right carotid duplex scan was abnormal: proctor scale imaging and spectral Doppler velocities were consistent with 50-69% stenosis of the right bulb through mid internal carotid artery. The right vertebral flow was antegrade. The left carotid duplex scan was abnormal: proctor scale imaging and spectral Doppler velocities were consistent with 80-99% stenosis of the left internal carotid artery. NOTE: Transverse depiction of severity of stenosis was not accurately depicted due to patient's very high carotid bifurcation. Duplex findings appeared consistent with occlusion of the left proximal external carotid artery from a transverse imaging perspective only. Patient has a very high carotid bifurcation, unable to visualize in a sagittal plane. The left vertebral flow was antegrade. Doppler waveforms appeared dampended bilaterally, possibly consistent with cardiac changes. Incidental note was made of a thyroid nodule [...] imaging or operative reports available for comparison Stephanie BOUCHER CV VASCULAR PROCEDURES Final Res ult from Last 3 Months Insurance MEDICARE Care Teams Suction Operator Relationship Specialty Start Date End Date Yvrose Granado [address] [place] [id number] PCP - General Internal Medicine 11/15/24
== END 2025-01-30 11:07 | disposition home or self-care (01) ==
LOC: HO.HCS 10:19
PROVIDERS: PCP Hospitalist; Visit Provider Internal Medicine
DX: I42.9 Cardiomyopathy, unspecified (principal)
CPT/HCPCS: 99214; G2211

== ENCOUNTER → 2025-01-30 10:19 | Outpatient (BNVA) | payer MEDICARE, SELFPAY | PROVIDERS: PCP Hospitalist; Visit Provider Internal Medicine | DX: I42.9 Cardiomyopathy, unspecified (principal) | CPT/HCPCS: 99212 ==

== ENCOUNTER 2025-04-26 09:57 | Outpatient (AMB) | payer MEDICARE, SELFPAY ==
--- OUTSIDE RECORDS SUMMARY | 2025-04-24 06:45 | XMS_ITS ---
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 Name Role Phone NATIVIDAD CANTRELL Primary Care Provider [phone] Helen Palacios Unavailable [phone] Allergies No Known Allergies REASON FOR VISIT [facility] Cataract OD 05/16/25 Medications Medication SIG (Take, Route, Frequency, Duration) Notes Start Date End Date Status Pravastatin Sodium 40 MG TAKE 1 TABLET B Y MOUTH EVERY DAY; Duration: 90 Active Meloxicam 7.5 MG TAKE 1 TABLET BY [facility] EVERY DAY; Duration: 30 Not-Taki ng tiZANidine HCl 4 MG 1 tablet as needed Orally Three times a day; Duration: 7 days 03/03/2023 Not-Taking Loratadine 10 MG TAKE 1 TABLET BY [facility] EVERY DAY *OTC NC*; Duration: 90 Active Valsartan 160 MG 1 tablet Orally Once a day; Duration: 90 days Not-Michelle g Flonase Allergy Relief 50 MCG/ACT 1 spray in each nostril Nasally Once a day Active Omeprazole 20 MG TAKE 1 CAPSULE BY [facility] EVERY DAY 30 MINUTES BEFORE BREAKFAST; Duration: 90 Active metFORMIN HCl ER 500 MG 1 tablet with ev ening meal Orally twice a day; Duration: 90 days Active amLODIPine Besylate 2.5 MG 1 tablet Orally Once a day; Duration: 90 days Active one touch verio test strips - 1-2 times daily in vitro 1-2 times daily; Duration: 90 days 04/12/2022 Active one touch verio test strips Active one touch verio test strips - test blood sugars 3 times daily dx: E11.9 ones a week; Duration: 30 days 04/12/2022 Active Lisinopril 2.5 MG 1 tablet Orally Once a day 02/05/2025 Active Social History Tobacco Use: Social History [...] Points 0 Interpretation Negative Vital Signs Temperature 97.5 degrees Fahrenheit 04/24/20 25 Oximetry 99 % 04/24/2025 Heart Rate 99 /min 04/24/2025 Blood pressure systolic 122 mm Hg 04/24/20 25 Blood pressure diastolic 80 mm Hg 025 Weight 130.1 lbs 04/24/2025 BMI 20.37 kg/m2 04/24/2025 Height 67 in 04/24/2025 Encounters Encounter Location Date Provider Diagnosis [facility] [address] [facility] [address] [place] [address] 04/24/2025 Helen Palacios Pre-operative clearance Z01.818 Assessments Encounter Date Diagnosis (ICD Code) Assessment Notes Treatment Notes Treatment Clinical Notes Section Notes 04/24/2025 Pre-operative clearance (ICD-10 - Z01.818) Mr. Torres is a 69-year-old gentleman with type 2 diabetes mellitus, GERD, hypertension, hyperlipidemia, hearing loss and uses hearing aids, seasonal allergies and cerebral aneurysm here for pre-op clearance for the right eye.Plan as follows: Cardiac assessment. Patient can easily do 4 METS. Blood pressure and exam is within normal limits. Pulmonary assessment. Lung exam is normal. No further Intervention NPO on the day of surgery. Take your medications after the surgery. He is not on ASA or NSAIDs Low risk procedure in a low risk patient. No contraindications for the procedure at this point in time General concerns have been discussed I have rendered the services for this patient under direct supervision of Dr. Cantrell, who did not see the patient but was available upon request Plan Of Treatment Next Appt Details Follow Up: next appt, Reason : Provider Name:Chavo Guerra, 0 08/16/2025 10:30:00 AM, [address] [facility] [address], [place], [address], Progress Notes * Yen TORRES: 7 (69 yo M)Acc No.[id number]:04/24/2025 Progress Note Patient: Ángel CHERRY Appointment Provider: Vik Coemicky :1955 A ge:69 Y S ex:Male Supervising Provider:NATIVIDAD CANTRELL MD Date:04/24/2025 Address:[address] [place] [address], [address] Pcp:NATIVIDAD CANTRELL Subjective: * Chief Complaints: * S [facility] Cataract OD 05/16/25 * HPI: I nternal Medicine: Mr. Torres is a 69-year-old gentleman with type 2 diabetes mellitus, GERD, hypertension, hyperlipidemia, hearing loss and uses hearing aids, seasonal allergies and cerebral aneurysm here for pre-op clearance for the right eye. Cataract surgery is on May 16/2025 at [facility]. He is able to do 4 Cardiac METs. He is not on bloodthinner or omega supplement. He does not smoke. He is not on Insulin. He is not on CPAP machine. He denies any other active issues. * ROS: G eneral/Constitutional: Overall health G ood. C hange in appetite d enies.?Chills d enies. F ever d enies. N ight sweats d enies. S leep disturbance d enies. W eight gain d enies. W eight loss d enies. N eurologic: Difficulty speaking d enies. D izziness d enies.?Gait abnormality d enies. H eadache d enies. L oss of strength d enies. M madisyn loss d enies. S eizures d enies. T ingling/Numbness d enies . O phthalmologic: Blurred vision d enies. D ischarge d enies. D ry eye d enies. R ed eye d enies. E NT: Change in Voice D enies. C old Symptoms D enies.?Cough D enies. D izziness D enies. N elijah Congestion D enies. O talgia?Denies. p ostnasal drip D enies. B locked ear d enies. N osebleed d enies. S noring d enies. C ardiovascular: Diaphoresis D enies. P edal Edema D enies. P ND (Paroxsymal nocturnal dyspnea) D enies. C hest pain d enies. D ifficulty laying flat d enies. D yspnea on exertion d enies. H eart murmur d enies. O rthopnea?denies. R espiratory: Snoring d enies. A sthma d enies. C ough d enies. S hortness of breath with exertion d enies. S putum production d enies. W heezing d enies. G astrointestinal: Change in bowel habits d enies. C onstipation d enies. D ecreased appetite d enies. D iarrhea d enies. H eartburn d enies. N ausea d enies. V omiting d enies. M usculoskeletal: tingling/numbness D enies. m yalgias D enies. J oint Swelling D enies. e xtremeties n ormal. A rthritis d enies. B ack problems d enies. C arpal tunnel d enies. J oint stiffness d enies. M uscle aches d enies. E ndocrine: Bowel Changes D enies. B reast Discharge D enies.?poor libido D enies. C old intolerance d enies. E xcessive sweating d enies.?Excessive thirst d enies. F requent urination d enies. T hyroid problems d enies. S kin: Bruising D enies. E czema d enies. H air changes d enies. R shawn d enies. S kin lesion(s) d enies. P sychiatric: Anxiety d enies. D epressed mood d enies. D ifficulty sleeping d enies. N ervous breakdown d enies. S ubstance abuse d enies.? U rology: blood in urine d enies. b urning on urination d enies. d ifficulty urinating d enies. d ischarge d enies. d ysuria d enies.? 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 Aleman, [facility] 10/2022Right-sided carotid endarterectomy 2024 * Hospitalization/Major Diagno stic Procedure: * Family History: F ather: cerebral aneurysm. M other: diagnosed with Diabetes. * Social History: T obacco Use: T obacco Use/Smoking A re you a f ormer smoker H ow long has it been since you last smoked??> 10 years D rugs/Alcohol: A lcohol Screen (Audit-C) D id you have a drink containing alcohol in the past year? N o P oints 0 I nterpretation N egative Do you smoke marijuana?: yes. M iscellaneous: Rylie aparicio: 1 son. Living with: alone. Marital status: . Occupation: on disability due to cerebral aneurysm. * Medications: T akingLisinopril 2.5 MG Tablet 1 tablet Orally Once a day one touch verio test strips - Miscellaneous test blood sugars 3 times daily dx: E11.9 ones a week one touch verio test strips Flonase Allergy Relief 50 MCG/ACT Suspension 1 spray in each nostril Nasally Once a day one touch verio test strips - Miscellaneous 1-2 times daily in vitro 1-2 times daily amLODIPine Besylate 2.5 MG Tablet 1 tablet Orally Once a day metFORMIN HCl ER 500 MG Tablet Extended Release 24 Hour 1 tablet with evening meal Orally twice a day Omeprazole 20 MG Capsule Delayed Release TAKE 1 CAPSULE BY MOUTH EVERY DAY 30 MINUTES BEFORE BREAKFAST Loratadine 10 MG Tablet TAKE 1 TABLET BY MOUTH EVERY DAY *OTC NC* Pravastatin Sodium 40 MG Tablet TAKE 1 TABLET BY MOUTH EVERY DAY Taking Lisinopril 2.5 MG Tablet 1 tablet Orally Once a day Taking one touch verio test strips - Miscellaneous test blood sugars 3 times daily dx: E11.9 ones a week Taking one touch verio test strips Taking Flonase Allergy Relief 50 MCG/ACT Suspension 1 spray in each nostril Nasally Once a day Taking one touch verio test strips - Miscellaneous 1-2 times daily in vitro 1-2 times daily Taking amLODIPine Besylate 2.5 MG Tablet 1 tablet Orally Once a day Taking metFORMIN HCl ER 500 MG Tablet Extended Release 24 Hour 1 tablet with evening meal Orally twice a day Taking Omeprazole 20 MG Capsule Delayed Release TAKE 1 CAPSULE BY MOUTH EVERY DAY 30 MINUTES BEFORE BREAKFAST Taking Loratadine 10 MG Tablet TAKE 1 TABLET BY MOUTH EVERY DAY *OTC NC* Taking Pravastatin Sodium 40 MG Tablet TAKE 1 TABLET BY MOUTH EVERY DAY Not-TakingValsartan 160 MG Tablet 1 tablet Orally Once a day tiZANidine HCl 4 MG Tablet 1 tablet as needed Orally Three times a day Meloxicam 7.5 MG Tablet TAKE 1 TABLET BY MOUTH EVERY DAY Not-Taking Valsartan 160 MG Tablet 1 tablet Orally Once a day Not-Taking tiZANidine HCl 4 MG Tablet 1 tablet as needed Orally Three times a day Not-Taking Meloxicam 7.5 MG Tablet TAKE 1 TABLET BY MOUTH EVERY DAY * Allergies: N .K.D.A.no[Allergies Verified] Objective: * Vitals: T emp:97.5F, Oxygen sat %:99%, HR:99/min, BP:122/80mm Hg, Wt:130.1lbs, BMI:20.37Index, Ht: 67 in. * Examination: G eneral Examination: MANAGER PAYMENT A lert and Oriented x3. No motor or sensory deficit.? ENT N ormal. CVS S 1 and S2 Audible. Regular Rhythm. Resp N ormal. GI N ormal. Urology/Reproductive System N ormal. Musculoskeletal N ormal. NECK/THYROID: n earl supple neck supple, full range of motion no cervical lymphadenopathy no thyromegaly. S oft carotid bruit right side. Psychiatry N ormal. Assessment: * Assessment: 1. P re-operative clearance - Z01.818 (Primary) Mr. Torres is a 69-year-old gentleman with type 2 diabetes mellitus, GERD, hypertension, hyperlipidemia, hearing loss and uses hearing aids, seasonal allergies and cerebral aneurysm here for pre-op clearance for the right eye.Plan as follows: Cardiac assessment. Patient can easily do 4 METS. Blood pressure and exam is within normal limits. Pulmonary assessment. Lung exam is normal. No further Intervention NPO on the day of surgery. Take your medications after the surgery. He is not on ASA or NSAIDs Low risk procedure in a low risk patient. No contraindications for the procedure at this point in time General concerns have been discussed I have rendered the services for this patient under direct supervision of Dr. Cantrell, who did not see the patient but was available upon request Plan: * Treatment: * Procedure Codes: * Follow Up: n ext appt * Images: Review Notes: NATIVIDAD CANTRELL 2025-04-24 17:16:40* Electronically co-signed by NATIVIDAD CANTRELL MD on 04/24/2025 at 05:16 PM EDT Sign off status: Completed true * Appointment Provider: Vik Palacios Date: 04/24/2025 Generated for Kaushik saldivar/Linnette/eTbebaitting on: 04/26/2025 11:15 AM EDT History and Physical Notes * HPI (History of Present Illness) Category Sub-Category Detail Notes Category Not es Internal Medicine Mr. Heladio keane is a 69-year-old gentleman with type 2 diabetes mellitus, GERD, hypertension, hyperlipidemia, hearing loss and uses hearing aids, seasonal allergies and cerebral aneurysm here for pre-op clearance for the right eye. Cataract surgery is on May 16/2025 at [facility]. He is able to do 4 Cardiac METs. He is not on bloodthinner or omega supplement. He does not smoke. He is not on Insulin. He is not on CPAP machine. He denies any other active issues Examination Category Sub-Category Detail Notes Category Not es General Examination NECK/THYROID: neck supple neck supple, full range of motion no cervical lymphadenopathy no thyromegaly. Soft carotid bruit right side Psychiatry Normal Musculoskeletal Normal MANAGER PAYMENT Alert and Oriented x 3. No motor or sensory deficit ENT Normal CVS S1 and S2 Audible. R egular Rhythm Resp Normal GI Normal Urology/Reproductive System Normal
[2025-04-26 10:01] VITALS: BP 110/62; PULSE 66; BMI 19.2
--- NOTE | 2025-04-26 10:01 | MHC.OFFVIS ---
Vital Signs 04/26/25 10:01 Height 5 ft 9 in Weight 130 lb 1.164 oz BMI 19.2 BP 110/62 Blood Pressure Location Lt radial Position Sitting Pulse 66 Pulse Source Pulse Oximeter Intake Visit Reasons: follow up/cardiac MRI Accompanied by: Self / Same As Patient Allergies No Known Allergies Allergy (Verified 04/26/25 10:03) Medication List - Last Reconciled 04/26/25 by Doreen Cisneros, EDA-C aspirin 81 mg PO QAM lisinopril 2.5 mg PO DAILY loratadine 10 mg PO QAM metformin ER 500 mg PO BID metoprolol succinate ER 25 mg PO DAILY omeprazole 20 mg PO QAM pravastatin 40 mg PO BEDTIME HPI HPI follow up/cardiac MRI: Details: Details Ángel is a 69-year-old male past medical history of prior smoking, hypertension, hyperlipidemia, diabetes, carotid stenosis, nonischemic cardiomyopathy who presents for follow-up. Today he reports that he has been doing well with no concerning symptoms. No chest discomfort at rest or with activity. He denies shortness of breath, PND, orthopnea or edema. No heart palpitations, lightheadedness, presyncope, syncope. 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 He reports compliance with his medications. He has no concerns for sleep apnea. He says he has not drank alcohol in over 20 years. He lives on the 2nd floor and has to climb stairs which he says he tolerates well. [facility] Medical History Aphasia [place] (hard of hearing) Family history of sickle cell disease GERD (gastroesophageal reflux disease) Nasopharyngeal mass CVA (cerebral vascular accident) Cerebral aneurysm HTN (hypertension) Seasonal allergies Hyperlipidemia Diabetes Surgical History Hx of cardiac cath Hx of left cataract extraction H/O colonoscopy Hx of neck surgery History of carotid endarterectomy History of surgery for cerebral aneurysm History of carpal tunnel release Family History Father Cerebral aneurysm Mother Diabetes Social History Are you a primary medicare compliance auditor to a significant other at home: No Do you presently have visiting nurse or other home services: No Alcohol intake: never Patient Tobacco Use Status: Former Tobacco user Tobacco use type: Cigarette Years Smoked: 4 Review of Systems Const Denies daytime sleepiness, Denies difficulty sleeping, Denies snoring, Denies stops breathing during sleep and Denies weakness Card Denies chest pain, Denies rapid heart rate, Denies irregular heart rhythm, Denies claudication, Denies leg edema, Denies lightheadedness, Denies palpitations, Denies dyspnea, Denies dyspnea on exertion, Denies orthopnea, Denies paroxysmal nocturnal dyspnea and Denies slow heart rate Resp Denies cough, Denies dyspnea, Denies dyspnea on exertion and Denies snoring GI Reports no additional complaints, Denies hematochezia, Denies change in stool character and Denies dyspepsia Musc Denies abnormal gait, Denies muscle weakness and Denies numbness Neuro Denies abnormal gait, Denies numbness and Denies weakness Endo Denies palpitations Physical Exam Vital Signs: Last Vital Signs Pulse 66 04/26/25 10:01 BP 110/62 04/26/25 10:01 BMI result Body Mass Index 19.2 Const Other: thin built General: cooperative, comfortable and no acute distress Orientation/consciousness: patient oriented x3 Neck Neck: Yes normal visual inspection and Yes no JVD Resp Effort & Inspection: normal respiratory effort Auscultation: clear to auscultation bilaterally, no crackles, no rales, no rhonchi and no wheezes Cardio Rate: regular rate Rhythm: regular rhythm Heart sounds: S1 normal heart sound present, S2 normal heart sound present, no gallops, no murmurs and no rubs Neuro General: patient oriented x3 Extrem General: Yes normal to inspection, No no pedal edema and No calf tenderness Psych Appearance: grossly normal Mental Status: mental status grossly normal Speech and movement: Normal speech and movement present Assessment & Plan Assessment & Plan (1) Cardiomyopathy: Code(s): I42.9 - Cardiomyopathy, unspecified Category: Medical Plan: Nonischemic cardiomyopathy, of unclear etiology, newer finding on echo 10/04/2024 showing EF 30-35%. He then underwent a cardiac catheterization on 10/26/2024 showing normal coronary arteries. Repeat limited echo 01/15/2025 showed EF 35-40%. He has no signs of heart failure on examination. NYHA class 1. Unable to afford Entresto. Continue lisinopril and metoprolol XL for neurohormonal modulation. He is not requiring diuretics. Signs and symptoms of heart failure reviewed with him. Cardiology follow-up 6 months, sooner if needed. (2) Hx of cardiac cath: Comment: 10/26/2024, normal coronaries Code(s): Z98.890 - Other specified postprocedural states Category: Surgical (3) Bilateral carotid artery stenosis: Comment: 2017 - Left carotid endarterectomy at [facility] Code(s): I65.23 - Occlusion and stenosis of bilateral carotid arteries Category: Medical Plan: Follows with Dr. Burleson (4) HTN (hypertension): Code(s): I10 - Essential (primary) hypertension Category: Medical Plan: Blood pressure goal less than 130/80. Normal range at present. No med changes made. Plan Time spent on chart review, documentation, interview and assessment Coding Level of Care Code Est Pt Level 4 (11960) Complex EM visit Add On G2211 Diagnoses Cardiomyopathy I42.9 Hx of cardiac cath Z98.890 Bilateral carotid artery stenosis I65.23 HTN (hypertension) I10 Time Spent (min) 28
--- OUTSIDE RECORDS SUMMARY | 2025-04-26 11:15 | XMS_ITS | Patient Health Record ---
Author Organization [facility] Address [address] [place] [address] Care Team Providers Care Continuous Still Operator Name Role Phone NATIVIDAD CANTRELL Primary Care Provider SaravananstephenieHelen tsai Unavailable [phone] Allergies No Known Allergies Reason For Referral Reason DM T 2 Referral Organization [employer] [facility] Referring Provider First Name NATIVIDAD Referring Provider Last Name [facility] Referring Provider Speciality Internal M edicine Referred Provider Specialty Ophthalmolog y Referral Priority Routine Reason DM T 2 FOOT EXAM Referral Organization [employer] [facility] Referring Provider First Name NATIVIDAD Referring Provider Last Name [facility] Referring Provider Speciality Internal edicine Referred Provider Specialty Podiatry Referral Priority Routine Reason Evaluation and manag ement Diagnosis 1 Type 2 diabetes linnea itus with unspecified complications (E11.8) Referral Organization [employer] [facility] Referring Provider First Name NATIVIDAD Referring Provider Last Name [facility] Referring Provider Speciality Internal edicine Referred Provider Specialty Tube Teller General Notes Referral sent to [facility] in [facility] ([address], [address] [place] [address] ) - Office will call patient for scheduling.Tom Latraya 12/13/2024 10:48:39 AM > Referral Priority Routine Medications Medication SIG (Take, Route, Frequency, Duration) Notes Start Date End Date Status Flonase Allergy Relief 50 MCG/ACT 1 spray in each nostril Nasally Once a day Active one touch verio test strips Active one touch verio test strips - test blood sugars 3 times daily dx: E11.9 ones a week; Duration: 30 days 04/12/2022 Active Pravastatin Sodium 40 MG TAKE 1 TABLET B Y MOUTH EVERY DAY; Duration: 90 Active Lisinopril 2.5 MG 1 tablet Orally Once a day 02/05/2025 Active Meloxicam 7.5 MG TAKE 1 TABLET BY CHRISTEL TH EVERY DAY; Duration: 30 Not-Taki ng tiZANidine HCl 4 MG 1 tablet as needed Orally Three times a day; Duration: 7 days 03/03/2023 Not-Taking Loratadine 10 MG TAKE 1 TABLET BY CHRISTEL TH EVERY DAY *OTC NC*; Duration: 90 Active Valsartan 160 MG 1 tablet Orally Once a day; Duration: 90 days Not-Takin g Omeprazole 20 MG TAKE 1 CAPSULE BY MO RUST EVERY DAY 30 MINUTES BEFORE BREAKFAST; Duration: 90 Active metFORMIN HCl ER 500 MG 1 tablet with ev ening meal Orally twice a day; Duration: 90 days Active amLODIPine Besylate 2.5 MG 1 tablet Orally Once a day; Duration: 90 days Active one touch verio test strips - 1-2 times daily in vitro 1-2 times daily; Duration: 90 days 04/12/2022 Active Immunizations Vaccine Route Administration Date Status [...] Risk Notes Problem Non-toxic single thyroid nodule (666089778) Nontoxic single thyroid nodule (E04.1) Active confirmed Problem Disorder due to type 2 diabetes mellitus (079818004) Type 2 diabetes mellitus with unspecified complications (E11.8) Active confirmed Problem Mixed hyperlipidemia (867630147) Mixed hyperlipidemia (E78.2) Active confirmed Problem Right carotid artery stenosis (322976680519911) Occlusion and stenosis of right carotid artery (I65.21) Active confirmed Problem Intracranial aneurysm (disorder) (995434129) Cerebral aneurysm, nonruptured (I67.1) Active confirmed Problem Seasonal allergic rhinitis (547081776) Other seasonal allergic rhinitis (J30.2) Active confirmed Problem Gastro-esophageal reflux disease without esophagitis (713985668) Gastro-esophageal reflux disease without esophagitis (K21.9) Active confirmed Problem Essential hypertension (47699029) Essential (primary) hypertension (I10) Active confirmed Vital Signs Heart Rate 99 /min 04/24/2025 Temperature 97.5 degrees Fahrenheit 04/24/2025 Blood pressure diastolic 80 mm Hg 04/24/2025 Oximetry 99 % 04/24/2025 Height 67 in 04/24/2025 Blood pressure systolic 122 mm Hg 04/24/2025 Weight 130.1 lbs 04/24/2025 BMI 20.37 kg/m2 04/24/2025 Encounters Encounter Location Date Provider Diagnosis [address] [place] [address] 08/07/2024 NATIVIDAD CANTRELL Type 2 diabetes mellitus with unspecified complications E11.8 ; Annual physical exam Z00.00 ; Essential (primary) hypertension I10 ; Mixed hyperlipidemia E78.2 ; Gastro-esophageal reflux disease without esophagitis K21.9 ; Encounter for screening for malignant neoplasm of prostate Z12.5 and Nontoxic single thyroid nodule E04.[address] [place] [address] 02/05/2025 Helen Herreraum Type 2 diabetes mellitus with unspecified complications E11.8 ; Essential (primary) hypertension I10 ; Mixed hyperlipidemia E78.2 ; Gastro-esophageal reflux disease without esophagitis K21.9 ; Encounter for screening for malignant neoplasm of prostate Z12.5 and Nontoxic single thyroid nodule E04.[address] [place] [address] 04/24/2025 Ghadeer Saravananloum Pre-operative cleara nce Z01.[address] [place] [address] 09/26/[address] [place] [address] 12/13/[address] [place] [address] 12/24/2024 [facility] [address] [place] [address] 12/24/2024 [facility] [address] [place] [address] 02/05/2025 Helen Palacios Assessments Encounter Date Diagnosis (ICD Code) Assessment [...] on right medications. He has seen his two way radio technician in the past 1 year. Foot care discussed. Check A1c.referred to two way radio technician and podiatry EKG is normal sinus [...] his healthcare proxy is his sister Elvia. ALLEN form given Screening blood work before next appointment. General health concerns discussed with patient. 02/05/2025 Type 2 diabetes mellitus with unspecified complications (ICD-10 - E11.8) Mr. Torres is a 69-year-old gentleman with type 2 diabetes mellitus, GERD, hypertension, hyperlipidemia, hearing loss and uses hearing aids, seasonal allergies and cerebral aneurysm here for follow up. Plan is as follows: Type II diabetes mellitus. He checks his blood sugars at home and denies any hypoglycemic or hyperglycemic episodes. He is on right medications. He has seen his two way radio technician in the past 1 year. Foot care discussed. Previous A1c done earlier this year was 6.4. Check A1c Hypertension. Blood pressure well controlled on current regimen. Check comp Hyperlipidemia. Last lipid panel within normal limits. Continue on current regimen. Check lipid Cerebral aneurysm. He is stable at this point. Seasonal allergies. Stable on Loratadine and Flonase. Carotid bruit right side. He is status post carotid endarterectomy. Stable on aspirin 81 mg daily, pravastatin 40 mg daily. He follows with vascular surgeon. Cannabis use. Complications of cannabis use discussed and patient abstinence encouraged or consider gummies instead of smoking. Thyroid nodule. Recent ultrasound of the thyroid did show 1 nodule measuring 3.5 Cm. Referral for biopsy was placed back in October however he has not received a call we will follow up on the status of the biopsy. Cardiomyopathy. He was dental finding. Diagnostic cardiac catheterization was negative for clear etiology. [employer] is considering MRI of the heart to determine causes of decreased heart function. Also given that he cannot be on Entresto due to cost rodas, [employer] has added lisinopril 2.5 at the regimen and will start and was discontinued. Screening blood work before next appointment. General health concerns discussed with patient. I have rendered the services for this patient under direct supervision of Dr. Cantrell, who did not see the patient but was available upon request Content of this note has been dictated using voice recognition software. Despite multiple revisions, Errors may persist 08/07/2024 Annual physical exam (ICD-10 - Z00.00) [...] on right medications. He has seen his two way radio technician in the past 1 year. Foot care discussed. Check A1c.referred to two way radio technician and podiatry EKG is normal sinus [...] appointment. General health concerns discussed with patient. 04/24/2025 Pre-operative clearance (ICD-10 - Z01.818) Mr. [...] the patient but was available upon request 08/07/2024 Essential (primary) hypertension (ICD-10 - I10) [...] on right medications. He has seen his two way radio technician in the past 1 year. Foot care discussed. Check A1c.referred to two way radio technician and podiatry EKG is normal sinus [...] appointment. General health concerns discussed with patient. 02/05/2025 Essential (primary) hypertension (ICD-10 - I10) Mr. Torres is a 69-year-old gentleman with type 2 diabetes mellitus, GERD, hypertension, hyperlipidemia, hearing loss and uses hearing aids, seasonal allergies and cerebral aneurysm here for follow up. Plan is as follows: Type II diabetes mellitus. He checks his blood sugars at home and denies any hypoglycemic or hyperglycemic episodes. He is on right medications. He has seen his two way radio technician in the past 1 year. Foot care discussed. Previous A1c done earlier this year was 6.4. Check A1c Hypertension. Blood pressure well controlled on current regimen. Check comp Hyperlipidemia. Last lipid panel within normal limits. Continue on current regimen. Check lipid Cerebral aneurysm. He is stable at this point. Seasonal allergies. Stable on Loratadine and Flonase. Carotid bruit right side. He is status post carotid endarterectomy. Stable on aspirin 81 mg daily, pravastatin 40 mg daily. He follows with vascular surgeon. Cannabis use. Complications of cannabis use discussed and patient abstinence encouraged or consider gummies instead of smoking. Thyroid nodule. Recent ultrasound of the thyroid did show 1 nodule measuring 3.5 Cm. Referral for biopsy was placed back in October however he has not received a call we will follow up on the status of the biopsy. Cardiomyopathy. He was dental finding. Diagnostic cardiac catheterization was negative for clear etiology. [employer] is considering MRI of the heart to determine causes of decreased heart function. Also given that he cannot be on Entresto due to cost rodas, [employer] has added lisinopril 2.5 at the regimen and will start and was discontinued. Screening blood work before next appointment. General health concerns discussed with patient. I have rendered the services for this patient under direct supervision of Dr. Cantrell, who did not see the patient but was available upon request Content of this note has been dictated using voice recognition software. Despite multiple revisions, Errors may persist 02/05/2025 Mixed hyperlipidemia (ICD-10 - E78.2) Mr. Torres is a 69-year-old gentleman with type 2 diabetes mellitus, GERD, hypertension, hyperlipidemia, hearing loss and uses hearing aids, seasonal allergies and cerebral aneurysm here for follow up. Plan is as follows: Type II diabetes mellitus. He checks his blood sugars at home and denies any hypoglycemic or hyperglycemic episodes. He is on right medications. He has seen his two way radio technician in the past 1 year. Foot care discussed. Previous A1c done earlier this year was 6.4. Check A1c Hypertension. Blood pressure well controlled on current regimen. Check comp Hyperlipidemia. Last lipid panel within normal limits. Continue on current regimen. Check lipid Cerebral aneurysm. He is stable at this point. Seasonal allergies. Stable on Loratadine and Flonase. Carotid bruit right side. He is status post carotid endarterectomy. Stable on aspirin 81 mg daily, pravastatin 40 mg daily. He follows with vascular surgeon. Cannabis use. Complications of cannabis use discussed and patient abstinence encouraged or consider gummies instead of smoking. Thyroid nodule. Recent ultrasound of the thyroid did show 1 nodule measuring 3.5 Cm. Referral for biopsy was placed back in October however he has not received a call we will follow up on the status of the biopsy. Cardiomyopathy. He was dental finding. Diagnostic cardiac catheterization was negative for clear etiology. [employer] is considering MRI of the heart to determine causes of decreased heart function. Also given that he cannot be on Entresto due to cost rodas, [employer] has added lisinopril 2.5 at the regimen and will start and was discontinued. Screening blood work before next appointment. General health concerns discussed with patient. I have rendered the services for this patient under direct supervision of Dr. Cantrell, who did not see the patient but was available upon request Content of this note has been dictated using voice recognition software. Despite multiple revisions, Errors may persist 08/07/2024 Mixed hyperlipidemia (ICD-10 - E78.2) Mr. [...] on right medications. He has seen his two way radio technician in the past 1 year. Foot care discussed. Check A1c.referred to two way radio technician and podiatry EKG is normal sinus [...] on right medications. He has seen his two way radio technician in the past 1 year. Foot care discussed. Check A1c.referred to two way radio technician and podiatry EKG is normal sinus [...] appointment. General health concerns discussed with patient. 02/05/2025 Gastro-esophageal reflux disease without esophagitis (ICD-10 - K21.9) Mr. Torres is a 69-year-old gentleman with type 2 diabetes mellitus, GERD, hypertension, hyperlipidemia, hearing loss and uses hearing aids, seasonal allergies and cerebral aneurysm here for follow up. Plan is as follows: Type II diabetes mellitus. He checks his blood sugars at home and denies any hypoglycemic or hyperglycemic episodes. He is on right medications. He has seen his two way radio technician in the past 1 year. Foot care discussed. Previous A1c done earlier this year was 6.4. Check A1c Hypertension. Blood pressure well controlled on current regimen. Check comp Hyperlipidemia. Last lipid panel within normal limits. Continue on current regimen. Check lipid Cerebral aneurysm. He is stable at this point. Seasonal allergies. Stable on Loratadine and Flonase. Carotid bruit right side. He is status post carotid endarterectomy. Stable on aspirin 81 mg daily, pravastatin 40 mg daily. He follows with vascular surgeon. Cannabis use. Complications of cannabis use discussed and patient abstinence encouraged or consider gummies instead of smoking. Thyroid nodule. Recent ultrasound of the thyroid did show 1 nodule measuring 3.5 Cm. Referral for biopsy was placed back in October however he has not received a call we will follow up on the status of the biopsy. Cardiomyopathy. He was dental finding. Diagnostic cardiac catheterization was negative for clear etiology. [employer] is considering MRI of the heart to determine causes of decreased heart function. Also given that he cannot be on Entresto due to cost rodas, [employer] has added lisinopril 2.5 at the regimen and will start and was discontinued. Screening blood work before next appointment. General health concerns discussed with patient. I have rendered the services for this patient under direct supervision of Dr. Cantrell, who did not see the patient but was available upon request Content of this note has been dictated using voice recognition software. Despite multiple revisions, Errors may persist 02/05/2025 Encounter for screening for malignant neoplasm of prostate (ICD-10 - Z12.5) Mr. Torres is a 69-year-old gentleman with type 2 diabetes mellitus, GERD, hypertension, hyperlipidemia, hearing loss and uses hearing aids, seasonal allergies and cerebral aneurysm here for follow up. Plan is as follows: Type II diabetes mellitus. He checks his blood sugars at home and denies any hypoglycemic or hyperglycemic episodes. He is on right medications. He has seen his two way radio technician in the past 1 year. Foot care discussed. Previous A1c done earlier this year was 6.4. Check A1c Hypertension. Blood pressure well controlled on current regimen. Check comp Hyperlipidemia. Last lipid panel within normal limits. Continue on current regimen. Check lipid Cerebral aneurysm. He is stable at this point. Seasonal allergies. Stable on Loratadine and Flonase. Carotid bruit right side. He is status post carotid endarterectomy. Stable on aspirin 81 mg daily, pravastatin 40 mg daily. He follows with vascular surgeon. Cannabis use. Complications of cannabis use discussed and patient abstinence encouraged or consider gummies instead of smoking. Thyroid nodule. Recent ultrasound of the thyroid did show 1 nodule measuring 3.5 Cm. Referral for biopsy was placed back in October however he has not received a call we will follow up on the status of the biopsy. Cardiomyopathy. He was dental finding. Diagnostic cardiac catheterization was negative for clear etiology. [employer] is considering MRI of the heart to determine causes of decreased heart function. Also given that he cannot be on Entresto due to cost rodas, [employer] has added lisinopril 2.5 at the regimen and will start and was discontinued. Screening blood work before next appointment. General health concerns discussed with patient. I have rendered the services for this patient under direct supervision of Dr. Cantrell, who did not see the patient but was available upon request Content of this note has been dictated using voice recognition software. Despite multiple revisions, Errors may persist 08/07/2024 Encounter for screening for malignant neoplasm [...] on right medications. He has seen his two way radio technician in the past 1 year. Foot care discussed. Check A1c.referred to two way radio technician and podiatry EKG is normal sinus [...] on right medications. He has seen his two way radio technician in the past 1 year. Foot care discussed. Check A1c.referred to two way radio technician and podiatry EKG is normal sinus [...] appointment. General health concerns discussed with patient. 02/05/2025 Nontoxic single thyroid nodule (ICD-10 - E04.1) Mr. Torres is a 69-year-old gentleman with type 2 diabetes mellitus, GERD, hypertension, hyperlipidemia, hearing loss and uses hearing aids, seasonal allergies and cerebral aneurysm here for follow up. Plan is as follows: Type II diabetes mellitus. He checks his blood sugars at home and denies any hypoglycemic or hyperglycemic episodes. He is on right medications. He has seen his two way radio technician in the past 1 year. Foot care discussed. Previous A1c done earlier this year was 6.4. Check A1c Hypertension. Blood pressure well controlled on current regimen. Check comp Hyperlipidemia. Last lipid panel within normal limits. Continue on current regimen. Check lipid Cerebral aneurysm. He is stable at this point. Seasonal allergies. Stable on Loratadine and Flonase. Carotid bruit right side. He is status post carotid endarterectomy. Stable on aspirin 81 mg daily, pravastatin 40 mg daily. He follows with vascular surgeon. Cannabis use. Complications of cannabis use discussed and patient abstinence encouraged or consider gummies instead of smoking. Thyroid nodule. Recent ultrasound of the thyroid did show 1 nodule measuring 3.5 Cm. Referral for biopsy was placed back in October however he has not received a call we will follow up on the status of the biopsy. Cardiomyopathy. He was dental finding. Diagnostic cardiac catheterization was negative for clear etiology. [employer] is considering MRI of the heart to determine causes of decreased heart function. Also given that he cannot be on Entresto due to cost rodas, [employer] has added lisinopril 2.5 at the regimen and will start and was discontinued. Screening blood work before next appointment. General health concerns discussed with patient. I have rendered the services for this patient under direct supervision of Dr. Cantrell, who did not see the patient but was available upon request Content of this note has been dictated using voice recognition software. Despite multiple revisions, Errors may persist Plan Of Treatment Pending Test Test Name Order Date Carotid Ultrasound 07/25/2023 COMPREHENSIVE METABOLIC PANEL 04/12/2022 HEMOGLOBIN A1C WITH EST GLUCOSE 04/12/20 22 LIPID PANEL 04/12/2022 MICROALBUMIN, URINE 04/12/2022 US Thyroid 11/17/2023 Ultrasound: Needle Biopsy Thyroid-Rad Hemoglobin [id number] 02/05/2025 Albumin/Creatinine Ratio,[id number] Lipid [id number] 02/05/2025 Comp. Metabolic Panel [id number] 2024 Next Appt Details Provider Name:Chavo Guerra, Skinny 08/16/2025 10:30:00 AM, [address] [place] [address], [place], [address], Insurance Providers Payer Name Payer Address Payer Phone Subscriber Number Group Number Insured Name Patient Relationship to Insured Coverage Start Date Coverage End Date Medicare [address] [place]OLANDA JEFFERSONBAMBI [id number] Ángel Torres Self - patient is the insured 8 [employer] Claims Department [address] [place]LMA Cade [id number] Ángel Torres Self - patient is the insured Medical (General) History Medical History History ICD Code Type 2 diabetes mellitus GERD Hyperlipidemia Seasonal allergies Cerebral aneurysm, saw a neurologist in [place] Hypertension use hearing aids Cardiomyopathy with LVEF of 35-45%- Gustavo shahid Cardiovascular Multiple thyroid nodules Surgical History Surgery Date(Month/Year) cerebral aneurysm surgery left-sided carotid endarterectomy cyst removal 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 Aleman, [facility] 10/2022 Right-sided carotid endarterectomy 2024 Hospitalization History Reason Date(Month/Year) surgeries
--- OUTSIDE RECORDS SUMMARY | 2025-04-26 11:15 | XMS_ITS ---
Author Name [facility] Organization Unknown Care Team Organization Name Specialty Phone Email Start Date End Da te [facility], PROVIDER Primary Care 06/22/202203/15
--- OUTSIDE RECORDS SUMMARY | 2025-04-26 11:15 | XMS_ITS | Clinical Summary ---
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 Name Role Phone Yvrose Granado Primary Care Provider [phone] Allergies No known active allergies Medications amLODIPine [...] nodule greater than 1 cm in diameter Social History Tobacco Use Types Packs/Day Years [...] Info) Description 12/20/2025 9:30 AM EDT Appointment [facility] [address] [place] [address] Whitney Melton MD MPH [address] [place] [address] Health Maintenance Due Date Last Done Comments Cologuard 1957 Colon Cancer Screening 1957 Colonoscopy 1957 FOBT / Fit Test 1957 Hepatitis C Screening 1957 Sigmoidoscopy 1957 Medicare AWV 1958 Zoster Vaccines (1 of 2) 2007 Pneumococcal Vaccine: 50+ Years (2 of 2 - PCV) 03/26/2015 03/26/2014 DTaP,Tdap,and Td Vaccines (2 - Td or Tdap) 03/26/2024 03/26/2014 Alcohol/Substance Use Screening 08/15/2024 Depression Screening and Follow-Up 08/15/2024 Health Care Proxy Review 08/15/2024 Social Drivers of Health Annual Screening 08/15/2024 COVID-19 Vaccine (3 - 2024-2 6 season) 2025 12/18/2020, 11/20/2020 Influenza Vaccine (#1) 2025 Fall Risk Screening 01/01/2026 01/01/2025 RSV Vaccine (60+ years old a nd patients) (1 - 1-dose 75+ series) 2032 Tobacco Screening 08/15/2042 12/14/2024 Statin Therapy Completed 11/30/2024 Hepatitis B Vaccines Aged Out No long er eligible based on patient's age to complete this topic Insurance MEDICARE Care Teams Electric Engine Mechanic Relationship Specialty Start Date End Date Yvrose Granado [address] [place] [id number] PCP - General Internal Medicine 11/15/24
--- OUTSIDE RECORDS SUMMARY | 2025-04-26 11:15 | XMS_ITS | Encounter Summary ---
Author Organization [facility] Address [address] [place] [address] Care Team Providers Care Database Security Administrator Name Role Phone Yvrose Granado Primary Care Provider [phone] Encounter Details Date Type Department Care Team (Late st Contact Info) Description 11/30/[address] [facility] X[facility] [address] [place] [address] Imani Bautista MD [address] [place] [address] Social History Tobacco Use Types Packs/Day Years Used Date Smoking Tobacco: Unknown Sex and Gender Information Value Date Recorded Sex Assigned at Not on file Legal Sex Male 1:51 PM EDT Gender Identity Not on file Sexual Orientation Not on file documented as of this encounter Plan of Treatment Upcoming Encounters Date Type Department Care Team (Late st Contact Info) Description 12/20/2025 9:30 AM EDT Appointment [facility] [address] [place] [address] Whitney Melton MD MPH [address] [place] [address] documented as of this encounter Visit Diagnoses Not on filedocumented in this encounter Care Teams Database Security Administrator Relationship Specialty Start Date End Date Yvrose Granado [address] [place] [id number] PCP - General Internal Medicine 11/15/24 documented as of this encounter
--- OUTSIDE RECORDS SUMMARY | 2025-04-26 11:15 | XMS_ITS | Patient Health Record ---
[facility] Address [address] [place] [address] Care Team Providers Care Automotive Mechanical Engineer Name Role Phone Mian Braden MD Primary Care Provider [facility] Unavailable [phone] Reason For Referral No Information Medications Medication SIG (Take, Route, Frequency, Duration) Notes Start Date End Date Status hydroCHLOROthiazide 12.5 MG 1 tablet Ora lly Once a day; Duration: 30 day(s) Active Vitamin D2 Active Problems Problem Type SNOMED Code ICD Code Onset Dates Problem Status W/U Status Risk Notes Problem Ingrowing nail (861224263) Ingrowing Nail (703.0) Active confirmed Problem Onychomycosis (465250522) Onychomycosis (110.1) Active confirmed Problem Pain in limb (66679078) Pain in Limb (729.5) Active confirmed Plan Of Treatment Pending Test Test Name Order Date [id number] Plate 11/20/2012 [id number] Plate Each Additional 03/2013 Insurance Providers Payer Name Payer Address Payer Phone Subscriber Number Group Number Insured Name Patient Relationship to Insured Coverage Start Date Coverage End Date [employer] [address] [place] [address] [id number] Ángel Torres Self - patient is the insured Medical (General) History Medical History History ICD Code hypertension measles mumps chicken pox Surgical History Surgery Date(Month/Year) wrist surgery 1979' neck surgery 1969'
== END 2025-04-26 10:36 | disposition home or self-care (01) ==
LOC: HO.HCS 09:57
PROVIDERS: PCP Hospitalist; Visit Provider Nurse Practitioner Family
DX: I42.9 Cardiomyopathy, unspecified (principal); Z98.890 Other specified postprocedural states; I65.23 Occlusion and stenosis of bilateral carotid arteries; I10 Essential (primary) hypertension
CPT/HCPCS: 99214; G2211

== ENCOUNTER → 2025-04-26 09:57 | Outpatient (BNVA) | payer MEDICARE, SELFPAY | PROVIDERS: PCP Hospitalist; Visit Provider Nurse Practitioner Family | DX: I10 Essential (primary) hypertension (principal); I65.23 Occlusion and stenosis of bilateral carotid arteries; I42.9 Cardiomyopathy, unspecified | CPT/HCPCS: 99212 ==